=== PATIENT | female | born 1960 | race Caucasian/White ===

== ENCOUNTER 2018-08-27 13:11 | Outpatient (CLI) | payer MEDICAID ==
[~2018-08-27] VITALS: Ht 154.9 cm; Wt 73.0 kg
[2018-08-27 13:21] VITALS: BP 94/53
[2018-08-27 13:46] LABS: BASOPHILS # (AUTO) 0.1 10^3/uL (0.0-0.1); BASOPHILS % (AUTO) 1 % (0-10); EOSINOPHILS # (AUTO) 0.1 10^3/uL (0.0-0.3); EOSINOPHILS % (AUTO) 1 % (0-10); HEMATOCRIT 28 % (35-52); HEMOGLOBIN 8.5 G/DL (11.5-16.0); LYMPHOCYTES # (AUTO) 1.9 X 10^3 (1.0-4.0); LYMPHOCYTES % (AUTO) 40 % (12-44); MEAN CORPUSCULAR HEMOGLOBIN 24 PG (25-34); MEAN CORPUSCULAR HGB CONC 31 G/DL (32-36); MEAN CORPUSCULAR VOLUME 80 FL (80-99); MEAN PLATELET VOLUME 9.1 FL (7.4-10.4); MONOCYTES # (AUTO) 0.4 X 10^3 (0.0-1.0); MONOCYTES % (AUTO) 8 % (0-12); NEUTROPHILS # (AUTO) 2.3 X 10^3 (1.8-7.8); NEUTROPHILS % (AUTO) 49 % (42-75); PLATELET COUNT 413 10^3/uL (130-400); RED CELL DISTRIBUTION WIDTH 17.1 % (10.0-14.5); WHITE BLOOD COUNT 4.7 10^3/uL (4.3-11.0)
[2018-08-27] MEDS ORDERED: LISI10TA2 PO (13:51)
[2018-08-27] MEDS ORDERED: SIMV40TA4 PO (13:51)
[2018-08-27] MEDS ORDERED: AMIT150T PO (13:51)
[2018-08-27] MEDS ORDERED: VENL150T PO (13:51)
[2018-08-27] MEDS ORDERED: ASPI-808 PO (13:51)
[2018-08-27] MEDS ORDERED: FERR325T18 PO (13:51)
[2018-08-27] MEDS ORDERED: FAMO40TA72 PO (13:51)
[2018-08-27] MEDS ORDERED: OMEP40CA36 PO (13:51)
[2018-08-27 14:03] LABS: BUN/CREATININE RATIO 12; CALCIUM 9.2 MG/DL (8.5-10.1); CARBON DIOXIDE 23 MMOL/L (21-32); CHLORIDE 103 MMOL/L (98-107); CREATININE SERUM 0.92 MG/DL (0.60-1.30); GFR ESTIMATED > 60; GLUCOSE 109 MG/DL (70-105); POTASSIUM 4.2 MMOL/L (3.6-5.0); SODIUM 134 MMOL/L (135-145)
== END 2018-08-27 13:40 | disposition home or self-care (01) ==
LOC: PREOP 13:11
PROVIDERS: ATTEND Otolaryngology Otolaryngology/Facial Plastic Surgery
DX: Z01.812 Encounter for preprocedural laboratory examination (principal); Z11.2 Encounter for screening for other bacterial diseases; J38.7 Other diseases of larynx
CPT/HCPCS: 36415; 80048; 85025; 87081

== ENCOUNTER 2018-09-02 07:06 | Day surgery (SDC) | payer MEDICAID ==
[~2018-09-02] VITALS: Ht 154.9 cm; Wt 73.0 kg
[2018-09-02] VITALS (8 sets, daily range): BP systolic 87–143; BP diastolic 50–69
[~2018-09-02 07:06] MED LIST: AMIT150T PO; ASPI-808 PO; FAMO40TA72 PO; FERR325T18 PO; LISI10TA2 PO; OMEP40CA36 PO; SIMV40TA4 PO; VENL150T PO
[2018-09-02] MEDS: LACTATED RINGERS 1,000 ML IV PRN ×2 (07:45→09:01)
[2018-09-02] MEDS ORDERED: FAMOTIDINE 20MG/2ML IV (PEPCID) ONE (07:57)
[2018-09-02] MEDS ORDERED: MIDAZOLAM 2 MG/2 ML (VERSED) VIAL ONE ×2 (07:57→08:36)
[2018-09-02] MEDS ORDERED: MIDAZOLAM 2 MG/2 ML (VERSED) VIAL IV ONE (08:15)
--- NOTE | 2018-09-02 08:24 | Progress Note-Pre Operative ---
Pre-Operative Progress Note H&P Reviewed The H&P was reviewed, patient examined and no changes noted. Date Seen by Provider: September 02, 2018 Time Seen by Provider: 07:30 Date H&P Reviewed: September 02, 2018 Time H&P Reviewed: 07:30 Pre-Operative Diagnosis: Unlatera Left Throat Paitn with Left Phyarngeal/base of tongue mass YVES MO MD September 02, 2018 08:24
[2018-09-02] MEDS ORDERED: DEXAMETHASONE 10 MG/ML (DECADRON) 1 ML VIAL ONE (08:35)
[2018-09-02] MEDS ORDERED: LIDOCAINE PF 2% 5 ML (XYLOCAINE) VIAL ONE (08:35)
[2018-09-02] MEDS ORDERED: proPOfol 200 MG/20 ML (DIPRIVAN) VIAL IV ONE (08:35)
[2018-09-02] MEDS ORDERED: ONDANSETRON 4 MG/2 ML (SDV) Z0FRAN ONE (08:35)
[2018-09-02] MEDS ORDERED: SEVOFLURANE (ULTANE) 15 ML INHAL SOLN ONE ×3 (08:35→08:48)
[2018-09-02] MEDS ORDERED: fentaNYL INJECTION 100 MCG/2 ML AMP ONE (08:36)
[2018-09-02] MEDS ORDERED: ROCURONIUM 10 MG/ML 5 ML SYRINGE IV ONE (08:48)
[2018-09-02] MEDS ORDERED: SUCCINYLCHOLINE INJ 100 MG/5 ML SYR ONE (08:48)
[2018-09-02] MEDS ORDERED: LIDOCAINE/EPI 1%-1:100,000 (XYLOCAINE) 20ML ONE (08:52)
[2018-09-02] MEDS ORDERED: NEOSTIGMINE 1 MG/ML 5 ML SYRINGE ONE (08:55)
[2018-09-02] MEDS ORDERED: GLYCOPYRROLATE 0.2 MG/ML (ROBINUL) 2 ML VIAL ONE (08:55)
--- OUTSIDE RECORDS SUMMARY | 2018-09-02 08:58 | XMS REPORT ---
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 [employer] Anesth ZI Shirley DO Attending RENALDO LAKHANI DO Erdoc1 DEBORAH Caballero COTTON AGENT [facility] Functional Status No Data Found Immunization No Data Found Mental Status No Data Found Results PHOSPHORUS - Collect Date/Time: 02/27/2017 05:05 [facility] Post ID: [id number] [address] [facility] [address], [place], [place], [id number] [facility] ID: [id number] [address] [facility] [address], [place], [place], [id number] LOINC: 2777-1 Test Value Unit Reference Range Code Code System PHOSPHORUS 4.1 MG/DL L =2.5 H=4.5 2777-1 LOINC MAGNESIUM - Collect Date/Time: 02/27/2017 05:05 [facility] ID: [id number] [address] [facility] [address] [place], [place], [id number] [facility] ID: [id number] [address] [facility] [address] [place], [place], [address] LOINC: 15940-8 Test Value Unit Reference Range Code Code System MAGNESIUM 1.5 MG/DL L= 1.7 H=2.8 31536-8 LOINC COMPREHENSIVE METABOLIC PANEL - Collect Date/Time: 02/27/2017 05:05 [facility] ID: [id number] [address] [facility] [address] [place], [place], [id number] [facility] ID: [id number] [address] [facility] [address] [place], [place], [address] LOINC: 04504-8 Test Value Unit Reference Range Code Code System GLUCOSE 110 MG/DL L= 70 H=100 2345-7 LOINC SODIUM 138 MEQ/L L= 135 H=148 2951-2 LOINC POTASSIUM 4.3 MEQ/L L= 3.5 H=5.3 2823-3 LOINC CHLORIDE 113 MEQ/L L= 96 H=110 2075-0 LOINC CO2 19 MEQ/L L=22 H=29 2028-9 LOINC BUN 15 MG/DL L=8 H=22 3094-0 LOINC CREATININE 0.8 MG/DL L =0.6 H=1.6 2160-0 LOINC SGOT/AST 21 IU/L L=10 H=40 1920-8 LOINC SGPT/ALT 17 IU/L L=8 H=54 1742-6 LOINC ALK PHOS 31 IU/L L=35 H=115 6768-6 LOINC TOTAL PROTEIN 5.2 G/DL L=5.5 H=8.5 2885-2 LOINC ALBUMIN 3.0 G/DL L= 3.1 H=5.4 1751-7 LOINC TOTAL BILI 0.3 MG/DL L =0.0 H=1.5 1975-2 LOINC CALCIUM 8.2 MG/DL L= 8.2 H=10.6 65792-1 LOINC AGE 56 yrs GFR NonAA 74 GFR AA 90 eGFR >60 eGFR AA* >60 CBC W/ MANUAL DIFF - Collect Date/Time: 02/27/2017 05:05 [facility] [employer] [facility] ID: [id number] [address], [place], [place], [id number] [facility] ID: [id number] [address], [place], [place], [id number] LOINC: 68403-2 Test Value Unit Reference Range Code Code System WBC 8.2 TH/CMM L=4.5 H=10.8 93971-2 LOINC RBC 3.49 ML/CMM L= 4.20 H=5.40 789-8 LOINC HGB 10.4 G/DL L=12.0 H=16.0 718-7 LOINC HCT 32.3 % L=37.0 H=47.0 4544-3 LOINC MCV 93 FL L=81 H =99 MCH 29.8 PG L=27.0 H=33.0 MCHC 32.2 G/DL L=31.0 H=36.0 RDW SD 47 FL L=36 H=50 RDW CV 13.9 % L=0.0 H=14.8 MPV 9.4 FL L=9.3 H=12.5 PLT 285 TH/CMM L=130 H=440 777-3 LOINC NRBC# 0.00 TH/CMM L= 0.00 H=0.00 NRBC% 0.0 /100WBC L= 0.0 H=2.0 %NEUT 73.0 % %LYMP 20.1 % %MONO 6.6 % %EOS 0.0 % %BASO 0.2 % #NEUT 5.96 TH/CMM L= 2.10 H=8.20 #LYMP 1.64 TH/CMM L= 0.90 H=5.20 #MONO 0.54 TH/CMM L= 0.16 H=1.00 #EOS 0.00 TH/CMM L= 0.00 H=0.80 #BASO 0.02 TH/CMM L= 0.00 H=0.20 SEGS 74 % BANDS 1 % LYMPHS 21 % MONOS 4 % EOS BASO METAS MYELO PROS BLASTS ATYP LYMPHS RBC MORPH COMPREHENSIVE METABOLIC PANEL - Collect Date/Time: 02/26/2017 05:40 [facility] ID: [id number] [address], [place], [place], [id number] [facility] ID: [id number] [address] [facility] [address], [place], [place], [id number] LOINC: 15503-4 Test Value Unit Reference Range Code Code System GLUCOSE 98 MG/DL L=70 H=100 2345-7 LOINC SODIUM 139 MEQ/L L= 135 H=148 2951-2 LOINC POTASSIUM 4.1 MEQ/L L= 3.5 H=5.3 2823-3 LOINC CHLORIDE 109 MEQ/L L= 96 H=110 2075-0 LOINC CO2 24 MEQ/L L=22 H=29 2028-9 LOINC BUN 12 MG/DL L=8 H=22 3094-0 LOINC CREATININE 0.8 MG/DL L =0.6 H=1.6 2160-0 LOINC SGOT/AST 19 IU/L L=10 H=40 1920-8 LOINC SGPT/ALT 19 IU/L L=8 H=54 1742-6 LOINC ALK PHOS 41 IU/L L=35 H=115 6768-6 LOINC TOTAL PROTEIN 6.3 G/DL L=5.5 H=8.5 2885-2 LOINC ALBUMIN 3.7 G/DL L= 3.1 H=5.4 1751-7 LOINC TOTAL BILI < 0.3 MG/DL L=0.0 H=1.5 1975-2 LOINC CALCIUM 8.9 MG/DL L= 8.2 H=10.6 98257-6 LOINC AGE 56 yrs GFR NonAA 74 GFR AA 90 eGFR >60 eGFR AA* >60 CBC W/ AUTO DIFF (RFLX MAN DIFF IF IND) - Collect Date/Time: 02/26/2017 05:40 [facility] ID: [id number] [address], [place], [id number] [facility] [employer] [employer] [facility] ID: [id number] [address], [place], [address] LOINC: 24482-8 Test Value Unit Reference Range Code Code System WBC 6.6 TH/CMM L=4.5 H=10.8 30942-1 LOINC RBC 3.91 ML/CMM L= 4.20 H=5.40 789-8 LOINC HGB 11.7 G/DL L=12.0 H=16.0 718-7 LOINC HCT 36.0 % L=37.0 H=47.0 4544-3 LOINC MCV 92 FL L=81 H =99 MCH 29.9 PG L=27.0 H=33.0 MCHC 32.5 G/DL L=31.0 H=36.0 RDW SD 47 FL L=36 H=50 RDW CV 13.7 % L=0.0 H=14.8 MPV 9.7 FL L=9.3 H=12.5 PLT 327 TH/CMM L=130 H=440 777-3 LOINC NRBC# 0.00 TH/CMM L= 0.00 H=0.00 NRBC% 0.0 /100WBC L= 0.0 H=2.0 %NEUT 39.4 % %LYMP 50.5 % %MONO 6.1 % %EOS 2.4 % %BASO 1.4 % #NEUT 2.59 TH/CMM L= 2.10 H=8.20 #LYMP 3.32 TH/CMM L= 0.90 H=5.20 #MONO 0.40 TH/CMM L= 0.16 H=1.00 #EOS 0.16 TH/CMM L= 0.00 H=0.80 #BASO 0.09 TH/CMM L= 0.00 H=0.20 MANUAL DIFF NOT IND Social History Type Status Start Date End Date Code Code System Smoking History Current every day smoker 925365506 SNOMED- CT Smoking History Current every day smoker 04/20/1976 054622529 SNOMED-CT Vital Signs Vital Sign Value Unit Harney Value Harney Unit Date/Time Recent/Initial? Code Code System Body Mass Index 26.74 kg/m2 02/26/2017 01:30 Inital 49266-4 LOINC Systolic Blood Pressure 128 mm[Hg] 03/01/2017 07:16 Most Recent 8480-6 LOINC Diastolic Blood Pressure 70 mm[Hg] 03/01/2017 07:16 Most Recent 8462-4 LOINC Systolic Blood Pressure 119 mm[Hg] 02/26/2017 01:35 Inital 8480-6 LOINC Diastolic Blood Pressure 70 mm[Hg] 02/26/2017 01:35 Inital 8462-4 LOINC Body Surface Area 1.66 m2 02/26/2017 01:30 Inital 3140-1 LOINC Height 154.9400 cm 61.00 in 02/26/2017 01:30 Inital 8302-2 LOINC O2 Saturation 98 % 03/01/2017 07:16 Most Recent 47481-1 LOINC O2 Saturation 100 % 02/26/2017 01:35 Inital 98025-5 LOINC Pulse 74.0 /min 03/01/2017 07:16 Most Recent 8867-4 LOINC Pulse 72.0 /min 02/26/2017 01:35 Inital 8867-4 LOINC Respiration 20 /min 03/01/2017 07:16 Most Recent 9279-1 LOINC Respiration 20 /min 02/26/2017 01:35 Inital 9279-1 LOINC Temperature 36.3 Aysha 97.4 F 03/01/2017 07:16 Most Recent 8310-5 LOINC Temperature 36.6 Aysha 97.9 F 02/26/2017 01:35 Inital 8310-5 LOINC Weight 64.1833 kg 141.50 lbs 02/26/2017 01:30 Inital 10985-3 LOINC Assessment You had the following problems: PARTIAL OBSTRUCTION OF SMALL BOWEL ACUTE DUODENAL ULCER ABDOMINAL PAIN HTN Hospital Discharge Instructions Should you have any questions prior to discharge, please contact a member of your healthcare team. If you have left the hospital and have any questions, please contact your primary care physician. PRIMARY CARE PROVIDER: DR. PINON SCRIPTS WRITTEN BY DOCTOR GIVEN TO PATIENT? NORCO INSTRUCTIONS GIVEN BY (TYPE IN NAME AND DATE) GEOFFREY LOGAN RN FOLLOW UP APPOINTMENT: SEE DR. PINON IN 2 WEEKS. CALL ON THURSDAY TO SET UP APPOINTMENT TIME. [phone] ACTIVITY INSTRUCTIONS(list limitations): MAY SHOWER AND LEAVE INCISION OPEN TO AIR IF NO DRAINAGE. NO LIFTING GREATER THAN 15 POUNDS. SPECIAL INSTRUCTIONS: MAY LEAVE UNCOVERED UNLESS THERE IS DRAINAGE, AND IF SO, COVER WITH MAXIPAD. HOME MEDICATION INSTRUCTIONS: Take only the medications listed above.. HOME DIET: Regular. HOME MEDS RETURNED TO PATIENT: N/A. Reason For Referral No Data Found Hospital Course You were admitted to [facility] on 02/26/2017 00:13 with a principal diagnosis of Intestinal adhesions [bands], with partial obstruction You were discharged from [facility] on 03/01/2017 11:43 Medications Medication Start Date End Date Route Frequency Dose Code Code System Enalapril 10MG Oral Tablet 01/08/2014 Unknown ORAL DAILY 10 MILLIGRAMS 394972 RxNorm Atorvastatin Calcium 20MG Oral Tablet 03/01/2017 Unknown ORAL DAILY 20 MILLIGRAMS 724329 RxNorm Amitriptyline HCl 150 MG Oral Tablet 03/01/2017 Unknown ORAL AT BEDTIME 150 MILLIGRAMS 196256 RxNorm Effexor XR 150MG Oral Capsule, Extended Release 12/25/2017 Unknown ORAL DAILY 150 MILLIGRAMS 616219 RxNorm Sucralfate 1GM/10ML Oral Suspension 12/25/2017 Unknown BY MOUTH BEFORE MEALS AND BED 504913 RxNorm Procedures Procedure Name Date Status Code Code System Release Abdomen Subcutaneous Tissue and Fascia, Open Approach 02/26/2017 completed [id number] ICD10 PCS Supplement Abdominal Wall with Synthetic Substitute, Open Approach 02/26/2017 completed [id number] ICD10 PCS Release Small Intestine, Open Approach 02/26/2017 completed [id number] ICD10 PCS Implants No Data Found Problems Problem Start Date Resolved Date Status Code Code System PARTIAL OBSTRUCTION OF SMALL BOWEL active 344418851 SNOMED- CT ACUTE DUODENAL ULCER active 783807695 SNOMED-CT ABDOMINAL PAIN active 52238353 SNOMED-CT HTN active 23365105 SNOMED-CT ANXIETY 12/24/2017 resolved 41489230 SNOMED-CT DEGENERATIVE JOINT DISEASE 12/24/2017 resolved 688367396 SNOMED-CT SMALL BOWEL OBSTRUCTION 11/14/2015 resolved 182077460 SNOMED- CT HYPERLIPIDEMIA 12/24/2017 resolved 61287133 SNOMED-CT OVERDOSE 12/25/2015 resolved 19321011 SNOMED-CT ISCHEMIC BOWEL DISEASE 12/24/2017 resolved 99305600 SNOMED- CT DEPRESSION 12/24/2017 resolved 79661189 SNOMED-CT Allergies Allergy Substance Reaction Severity Start Date Concern Status Code Code System Active RxNorm CEPHALEXIN Active 2231 RxNorm CODEINE Active 2670 RxNorm Plan of Treatment No Data Found Encounters No Data Found Goals No Data Found Discharge Medications No Data Found Discharge Diagnosis Discharge Diagnosis Diagnosis Code Start Date Intestinal adhesions [bands], with partial obstruction K5651 02/26/2017 Health Concerns Section No Data Found
--- OUTSIDE RECORDS SUMMARY | 2018-09-02 08:59 | XMS REPORT ---
Author Author [employer] [facility] Medical Staff Organization [place] [employer] [facility] Address [address] [place], [place] [address] Phone [phone] Care Team Providers Care Invoice Coder Name Role Phone FLORIAN BO LAURENT PP [phone] Summary purpose TRANSITION OF CARE AUTO GENERATION Chief Complaint and Reason for Visit No authorized Reason for Visit (Admitting Diagnosis) is available for this visit. Problem list No authorized problems tracked for continuity of care are available for this visit. Encounters No authorized problems tracked for encounter diagnoses are available for this visit. Medications No medications recorded for this patient visit Allergies, adverse reactions, alerts No allergy information is available for this patient. Immunizations No immunizations recorded for this patient visit Relevant diagnostic tests and/or laboratory data RESULTS Hematology 13-80-823302:45:00 Result Normal Range Units WBC 7.9 4.8-10.8 103/uL RBC L 4.1 4.2-5.4 106/uL HGB 12.2 12.0-16.0 g/dl HCT 37.3 36.9-47.0 % MCV 91.2 81-99 FL MCH 29.8 27-31 pg MCHC L 32.7 33-37 g/dl RDW 14.3 11.5-15.5 % PLT 384 130-400 103/uL MPV 9.8 7.3-10.4 FL Radiology Results [id number]:00:00 Chest X-Ray - 2 View PACs Image DATE OF EXAM: 2015 RAD 0300-CHEST XRAY 2 VIEW : RADIOLOGY REPORT DATE OF SERVICE: 09/20/15 HISTORY: Cough, shortness of breath, wheezing, history of smoking. CHEST 2 VIEWS 1444 HOURS The lungs are clear and are normally expanded. Heart size and pulmonary vessels are normal. There are no hilar abnormalities. IMPRESSION: Negative chest. MD DAVID Rice/ct09/20/2015 15:30:00 / 09/20/2015 15:41:38 cc:Bo Florian APRN This document has been electronically Signed by: On: DATE OF EXAM: 2015 RAD 0300-CHEST XRAY 2 VIEW : RADIOLOGY REPORT DATE OF SERVICE: 09/20/15 HISTORY: Cough, shortness of breath, wheezing, history of smoking. CHEST 2 VIEWS 1444 HOURS The lungs are clear and are normally expanded. Heart size and pulmonary vessels are normal. There are no hilar abnormalities. IMPRESSION: Negative chest. Stephen Palomino MD Yohannes/ct09/20/2015 15:30:00 / 09/20/2015 15:41:38 cc:Bo Florian APRN This document has been electronically Signed by: STEPHEN PALOMINO MD On: 20159:00P Result Amended on 2015-09-20 at 21:00:07. Previous status was DE. [id number]:45:00 Result Normal Range Units MPV 9.8 7.3-10.4 FL History of procedures Procedure Code Code Type Description Date Performed Performing Physician 67927 CPT-4 CHEST X-RAY 09-20-2015 BO FLORIAN 25980 CPT-4 COMPLETE CBC, AUTOMATED 09-20-2015 BO FLORIAN 09497 CPT-4 MYCOPLASMA ANTIBODY 09-20-2015 BO FLORIAN Functional status No functional or cognitive status observations are available for this visit. Vital signs No authorized vital signs are available for this visit. Social history No Social History or smoking status observations were recorded for this visit. ( Unknown if ever smoked.) Treatment Plan No treatment plan text is available for this visit. Hospital discharge instructions No discharge instruction text is available for this visit.
--- OUTSIDE RECORDS SUMMARY | 2018-09-02 08:59 | XMS REPORT ---
Author Author [facility] Medical Staff Organization [facility] Address [address] [place] [address] Phone [phone] Care Team Providers Care Die Designer Name Role Phone BO OLMOS APRN PP [phone] Summary purpose TRANSITION OF CARE AUTO GENERATION Chief Complaint and Reason for Visit Admit Diagnosis 1 HYPERTENSION NOS Problem list No authorized problems tracked for continuity of care are available for this visit. Encounters No authorized problems tracked for encounter diagnoses are available for this visit. Medications No medications recorded for this patient visit Allergies, adverse reactions, alerts No allergy information is available for this patient. Immunizations No immunizations recorded for this patient visit Relevant diagnostic tests and/or laboratory data RESULTS Routine Urinalysis [id number]:50:00 Result Normal Range Units Color YELLOW Clarity Clear Specific [place] 1.010 1.003-1.035 pH 6.0 4.5-8.0 Glucose NEGATIVE Bilirubin NEGATIVE Ketones NEGATIVE Protein NEGATIVE Urobilinogen 0.2 0-0.2 E.U./dL Nitrites NEGATIVE Blood NEGATIVE Leukocytes NEGATIVE WBCs No WBC's Seen RBCs 0-5 Squamous Epithelial Few Chemistry [id number]:50:00 Result Normal Range Units Sodium 134 134-145 mEq/l Potassium 4.9 3.5-5.1 mEq/l Chloride 101 98-107 mEq/l CO2 22.4 22-28 mEq/l Glucose H 132 70-105 mg/dl BUN H 28 7-18 mg/dl Creatinine H 1.07 0.6-1.0 mg/dl Triglycerides H 277 35-160 mg/dl Cholesterol H 269 120-200 mg/dl HDL Cholesterol 42 39-96 mg/dl VLDL Cholesterol H 55 5-40 mg/dl LDL Cholesterol H 169 30-100 mg/dl Calcium L 8.3 8.4-10.2 mg/dl TP - Total Protein 6.6 6.0-8.3 g/dl Albumin 3.6 3.5-5 g/dl Bilirubin - Total 0.2 0.1-1.0 mg/dl AST 17 10-42 IU/L ALT 20 12-65 IU/L ALP 32 25-72 IU/L Osmolality L 275.6 280-300 mOsm/L Albumin/Globulin Ratio 1.2 0-8 Anion GAP 10.6 8-16 BUN/Creatinine Ratio H 26.2 10-20 Estimated GFR L 53 >=60 mL/min/1.7 Hematology [id number]:50:00 Result Normal Range Units WBC 6.4 4.8-10.8 103/uL RBC L 4.0 4.2-5.4 106/uL HGB 12.8 12.0-16.0 g/dl HCT 38.5 36.9-47.0 % MCV 95.8 81-99 FL MCH H 31.8 27-31 pg MCHC 33.2 33-37 g/dl RDW 12.4 11.5-15.5 % PLT 347 130-400 103/uL MPV 9.4 7.3-10.4 FL Body Fluid [id number]:50:00 Result Normal Range Units pH 6.0 4.5-8.0 Thyroid Testing [id number]:50:00 Result Normal Range Units TSH 1.14 0.36-3.74 uIU/mL Free T4 0.92 0.78-1.34 ng/dl Radiology Results [id number]:50:00 Result Normal Range Units MPV 9.4 7.3-10.4 FL History of procedures Procedure Code Code Type Description Date Performed Performing Physician 49715 CPT-4 COMPREHEN METABOLIC PANEL 12-29-2014 BO OLMOS 43699 CPT-4 LIPID PANEL 12-29-2014 BO OLMOS 16592 CPT-4 URINALYSIS, AUTO W/SCOPE 12-29-2014 BO OLMOS 79245 CPT-4 ASSAY OF FREE THYROXINE 12-29-2014 BO OLMOS 90427 CPT-4 ASSAY THYROID STIM HORMONE 12-29-2014 BO OLMOS 60447 CPT-4 COMPLETE CBC, AUTOMATED 12-29-2014 BO OLMOS Functional status No functional or cognitive status [...]
--- OUTSIDE RECORDS SUMMARY | 2018-09-02 08:59 | XMS REPORT ---
Author Author [facility] Medical Staff Organization [facility] Address [address] [place] [address] Phone [phone] Care Team Providers Care Forge Hand Name Role Phone BO OLMOS APRN PP [phone] Summary purpose TRANSITION OF CARE AUTO GENERATION [...] visit Relevant diagnostic tests and/or laboratory data No authorized results are available for this patient visit History of procedures No procedures recorded for this patient visit. Functional status No functional or cognitive status [...]
--- OUTSIDE RECORDS SUMMARY | 2018-09-02 08:59 | XMS REPORT | CCD ---
Author Author ZAINAB WELDON Organization Unknown Address [address] [facility] [address] [place], [place] [id number] Care Team Providers Care Environmental Marketing Representative Name Role Phone [facility] Attphys ERNST NUNEZ MD Prisurg Vital Signs Vital Sign Value Unit Date/Time Recent/Initial? Body Temperature 96.8 degrees 11/13/2015 12:20 Initial VS BP Systolic 130 mmHg 11/13/2015 12:24 Initial VS BP Diastolic 68 mmHg 11/13/2015 12:24 Initial VS Respiratory Rate 17 bpm 11/13/2015 12:24 Initial VS Heart Rate 80 bpm 11/13/2015 12:24 Initial VS O2 % BldC Oximetry 100 % 11/13/2015 12:24 Initial VS Weight Measured 158 lbs 11/13/2015 13:18 Initial VS Height 57 in 11/13/2015 13:18 Initial VS BMI (Body Mass Index) 34.19 kg/m^2 11/13/2015 13:18 Initial VS BSA (Body Surface Area) 1.7 m^2 11/13/2015 13:18 Initial VS BP Systolic 111 mmHg 11/13/2015 17:08 Most Recent VS BP Diastolic 59 mmHg 11/13/2015 17:08 Most Recent VS Respiratory Rate 19 bpm 11/13/2015 17:34 Most Recent VS Heart Rate 60 bpm 11/13/2015 17:44 Most Recent VS O2 % BldC Oximetry 83 % 11/13/2015 17:44 Most Recent VS Allergies Allergy Code Allergy Type Reaction Status CEPHALEXIN 2231 Drug allergy Active Unknown Code - 0 0 Propensity to adverse reactions Active CODEINE 2670 Drug allergy Active Procedures Procedure Code Procedure Type Date CX CHEST [address] 11/13/2015 [place] 649908229 SNOM[place] 11/13/2015 [place] 968113653 SNOMED CT 11/13/2015 .BENZO QUANT UR 367058620 SNOMED CT 11/13/2015 UA ROUTINE C&S IF IND 813436752 SNOMED CT 11/13/2015 RAPID DRUG SCREEN 440686068 [facility] CT 11/13/2015 ACETAMINOPHEN 72178287 [facility] CT 11/13/2015 [facility]59[facility] 11/13/[address] 11/13/2015 LIPASE 90793844 [facility] CT 11/13/2015 COMPREHENSIVE METABOLIC PANEL 862516063 [facility] CT 2015 CBC W/ AUTO DIFF (RFLX MAN DIFF IF IND) 6061087 SNOMED CT 11/13/2015 ^UA AUTO DIPSTICK ONLY 898423362 OMED CT 11/13/2015 ^CBC W/AUTO DIFF 5779980 [facility] CT 11/13/2015 BAN AERO ECLIPSE TREATMENT 30288911 SNOMED CT 11/13/2015 BAN AERO ECLIPSE TREATMENT 01030648 SNOMED CT 11/13/2015 History of Immunizations Unknown or Not Available. Problems Problem Code Start Date Resolved Date Status Overdose 70965829 Active Small bowel obstruction 732546563 01/02/2014 11/14/2015 Resolved Results COMPREHENSIVE METABOLIC PANEL - Collect Date/Time: 11/13/2015 10:05 Test Name Code Test Result Test Units Test Ref Range GLUCOSE 2345-7 90 MG/DL L=70 H=100 SODIUM 2951-2 137 MEQ/L L=135 H=148 POTASSIUM 2823-3 4.5 MEQ/L L=3.5 H=5.3 CHLORIDE 2075-0 107 MEQ/L L=96 H=110 CO2 2028-9 21 MEQ/L L=22 H=29 BUN 3094-0 15 MG/DL L=8 H=22 CREATININE 2160-0 0.8 MG/DL L=0.6 H=1.6 SGOT/AST 1920-8 15 IU/L L=10 H=40 SGPT/ALT 1742-6 12 IU/L L=8 H=54 ALK PHOS 6768-6 28 IU/L L=35 H=115 TOTAL PROTEIN 2885-2 5.9 G/DL L=5.5 H=8.5 ALBUMIN 1751-7 3.5 G/DL L=3.1 H=5.4 TOTAL BILI 1975-2 0.2 MG/DL L=0.0 H=1.5 CALCIUM 39812-9 8.6 MG/DL L=8.2 H=10.6 AGE 55 yrs GFR NonAA 74 GFR AA 90 eGFR >60 N/A eGFR AA* >60 N/A LIPASE - Collect Date/Time: 11/13/2015 10:05 Test Name Code Test Result Test Units Test Ref Range LIPASE 3040-3 6 U/L L=8 H=78 ACETAMINOPHEN - Collect Date/Time: 11/13/2015 10:05 Test Name Code Test Result Test Units Test Ref Range ACETAMINOPHEN 3298-7 <0.60 UG/ML ALCOHOL - Collect Date/Time: 11/13/2015 10:05 Test Name Code Test Result Test Units Test Ref Range ETHANOL 5640-8 <10 MG/DL RAPID DRUG SCREEN - Collect Date/Time: 11/13/2015 10:25 Test Name Code Test Result Test Units Test Ref Range Cannabinoids (THC) NEGATIVE N/A NEG: < 50 ng/ ml Phencyclidine (PCP) NON-NEGATIVE N/A NEG: < 25 ng/ml Cocaine NEGATIVE N/A NEG: < 300 ng/ml Methamphetamine NEGATIVE N/A NEG: < 1000 ng/ml Opiates NEGATIVE N/A NEG: < 300 ng/ml Amphetamine NEGATIVE N/A NEG: < 1000 ng/ml Benzodiazepines NON-NEGATIVE N/A NEG: < 300 ng/ ml Tricyclic Antidepres NON-NEGATIVE N/A NEG: < 300 ng/ml Methadone NEGATIVE N/A NEG: < 300 ng/ml Barbiturates NEGATIVE N/A NEG: < 200 ng/ml Oxycodone NEGATIVE N/A NEG: < 100 ng/ml Propoxyphene (PPX) NEGATIVE N/A NEG: < 300 ng/ ml SALICYLATE - Collect Date/Time: 11/13/2015 10:05 Test Name Code Test Result Test Units Test Ref Range SALICYLATE 4023-8 <5.0 MG/DL L=0.0 H=45.0 CBC W/ AUTO DIFF (RFLX MAN DIFF IF IND) - Collect Date/Time: 11/13/2015 10:05 Test Name Code Test Result Test Units Test Ref Range WBC 19023-2 6.5 TH/CMM L=4.5 H=10.8 RBC 789-8 4.03 ML/CMM L=4.20 H=5.40 HGB 718-7 11.8 G/DL L=12.0 H=16.0 HCT 4544-3 37.1 % L=37.0 H=47.0 MCV 92 FL L=81 H=99 MCH 29.3 PG L=27.0 H=33.0 MCHC 31.8 G/DL L=31.0 H=36.0 RDW SD 48 FL L=36 H=50 RDW CV 14.1 % L=0.0 H=14.8 MPV 9.7 FL L=9.3 H=12.5 PLT 777-3 307 TH/CMM L=130 H=440 NRBC# 0.00 TH/CMM L=0.00 H=0.00 NRBC% 0.0 /100WBC L=0.0 H=2.0 %NEUT 56.5 % %LYMP 34.2 % %MONO 6.8 % %EOS 1.1 % %BASO 1.1 % #NEUT 3.65 TH/CMM L=2.10 H=8.20 #LYMP 2.21 TH/CMM L=0.90 H=5.20 #MONO 0.44 TH/CMM L=0.16 H=1.00 #EOS 0.07 TH/CMM L=0.00 H=0.80 #BASO 0.07 TH/CMM L=0.00 H=0.20 MANUAL DIFF NOT IND N/A PT/PTT - Collect Date/Time: 11/13/2015 10:05 Test Name Code Test Result Test Units Test Ref Range PROTIME 89789-0 9.9 SEC L=9.9 H=11.9 INR 0.9 PTT 3173-2 21.3 SEC L=22.2 H=37.2 UA ROUTINE C&S IF IND - Collect Date/Time: 11/13/2015 10:25 Test Name Code Test Result Test Units Test Ref Range COLOR YELLOW N/A NL: YELLOW APPEARANCE CLEAR N/A NL: CLEAR SPEC GRAV 1.020 N/A NL: 1.002 - 1.022 pH 6.0 N/A NL: 5 - 9 PROTEIN NEGATIVE N/A NL: NEGATIVE mg/dl GLUCOSE NEGATIVE N/A NL: NEGATIVE mg/dl KETONE NEGATIVE N/A NL: NEGATIVE mg/dl BILIRUBIN NEGATIVE N/A NL: NEGATIVE BLOOD NEGATIVE N/A NL: NEGATIVE NITRITE NEGATIVE N/A NL: NEGATIVE LEUK SCREEN NEGATIVE N/A NL: NEGATIVE MICRO INDICATED? NOT INDICATED N/A MAGNESIUM - Collect Date/Time: 11/13/2015 10:05 Test Name Code Test Result Test Units Test Ref Range MAGNESIUM 62827-3 2.2 MG/DL L=1.7 H=2.8 Active Medications Medication Code Dose Units Frequency Route Modification Start Date/Time BUDESONIDE [PULMICORT] RESP 0.5MG/2ML 002475 1 DOSE Q 12 HRS (RT ONLY) INHALE 11/13/2015 11:46 DUONEB [IPRATROPIUM/ALBUTEROL] 0.5/3 MG 6918393 1 EA QID (RT ONLY) INHALE 11/13/2015 11:46 PANTOPRAZOLE [PROTONIX] INJ VIAL: 40 MG 306256 40 MG DAILY SIVP 11/13/2015 11:36 NS 1000 ML IV [PREDEFINED] (7983) 367948 CONT IV IV 11/13/2015 11:08 ~~ NACL 0.9% (7983) 1000ML IV BAG 182806 6674 ML Medications Administered During Visit Medication Dose Units Frequency Route Date/ Time of Last Dose SOD BICARB 8.4%: 50 MEQ/50 ML VIAL 100 MEQ X1 IV 11/13/2015 13:00 PANTOPRAZOLE [PROTONIX] INJ VIAL: 40 MG 40 MG DAILY SIVP 11/13/2015 13:00 DUONEB [IPRATROPIUM/ALBUTEROL] 0.5/3 MG 1 UD QID (RT ONLY ) INHALE 11/13/2015 16:43 Encounters Encounter Diagnosis Diagnosis Code Start Date Poisoning by benzodiazepines, intentional self-harm, initial encounter [id number] 11/13/2015 Social History Smoking Status Code Start Date End Date Current every day smoker [id number] Patient Decision Aids Unknown or Not Available. Discharge Instructions You were admitted to [facility] on 11/13/2015 11:05 with a principal diagnosis of Poisoning by benzodiazepines, intentional self-harm, initial encounter You had the following tests done: ACETAMINOPHEN ALCOHOL CBC W/ AUTO DIFF (RFLX MAN DIFF IF IND) COMPREHENSIVE METABOLIC PANEL LIPASE MAGNESIUM PT/PTT RAPID DRUG SCREEN SALICYLATE UA ROUTINE C&S IF IND You were discharged from [facility] on 11/13/2015 18:46 Should you have any questions prior to discharge, please contact a member of your healthcare team. If you have left the hospital and have any questions, please contact your primary care physician. HOME DIET: Regular. CONDITION AT DISMISSAL Stable. HOME MEDICATION INSTRUCTIONS: Take medications as listed above. HOME MEDS RETURNED TO PATIENT: given to family member ACTIVITY INSTRUCTIONS(list limitations): Activity as Tolerated. RETURN TO WORK/SCHOOL: N/A. SPECIAL INSTRUCTIONS: follow up w/ mental health as recommended NEW PRESCRIPTS GIVEN TO PATIENT? No-none written by physician: . FOLLOW UP CARE - SEE YOUR PHYSICIAN: Make own appointment. FOLLOW UP APPOINTMENT: Sravanthi castro has not been made for you.. FOLLOW-UP OUTPATIENT SERVICES: Mental health services PERSONAL ITEMS RETURNED: Yes. OTHER INSTRUCTIONS: stay w/ family supervision aida, f/u w/ mental health as recommended. BRING DISCHARGE INST TO NEXT OFFICE VISIT Yes. DISCHARGE INSTRUCTIONS GIVEN TO: Patient, Parent. VOICES UNDERSTANDING OF INSTRUCTIONS: Yes. INSTRUCTIONS GIVEN BY:(TYPE IN NAME AND DATE) Shaun BOWEN, SMOKING CESSATION: Smoking and second hand smoke is harmful, to your health.. Smoking has been linked to cancer, cardiac disease, COPD, and asthma.. For more information you can call:, 8-814-NNY-STOP, or 9-957-TYTP-[place].. A pamphlet on smoking was given to you, at admission.. CHIEF COMPLAINT: PATIENT PRESENTS TO ER VIA EMS WITH OVERDOSE- CONFIRMED BY PATIENT. SUSPECTED INGESTION OF BENZODIAZEPINES, CELEBREX , AMITRIPTYLENE, CYCLOBENZAPRINE. Chief Complaint and Reason For Visit Chief Complaint Date of Onset OVERDOSE Function Status Unknown or Not Available. Plan of Care Unknown or Not Available. Referral/Transition of Care Unknown or Not Available.
--- OUTSIDE RECORDS SUMMARY | 2018-09-02 08:59 | XMS REPORT ---
Author Author [employer] [facility] Medical Staff Organization [place] [employer] [facility] Address [address] [place], [place] [address] Phone [phone] Care Team Providers Care Licensed Clinician Name Role Phone FLORIAN BO LAURENT PP [phone] Summary purpose TRANSITION OF CARE AUTO GENERATION [...] diagnostic tests and/or laboratory data RESULTS Hematology 60-23-923807:45:00 Result Normal Range Units WBC 7.9 4.8-10.8 103/uL RBC L 4.1 4.2-5.4 106/uL HGB 12.2 12.0-16.0 g/dl HCT 37.3 36.9-47.0 % MCV 91.2 81-99 FL MCH 29.8 27-31 pg MCHC L 32.7 33-37 g/dl RDW 14.3 11.5-15.5 % PLT 384 130-400 103/uL MPV 9.8 7.3-10.4 FL Radiology Results [id number]:00:00 Chest X-Ray - 2 View PACs Image DATE OF EXAM: 2015 RAD 0300-CHEST XRAY 2 VIEW : RADIOLOGY REPORT DATE OF SERVICE: 09/20/15 HISTORY: Cough, shortness of breath, wheezing, history of smoking. CHEST 2 VIEWS 1444 HOURS The lungs are clear and are normally expanded. Heart size and pulmonary vessels are normal. There are no hilar abnormalities. IMPRESSION: Negative chest. MD DAVID Rice/pr09/20/2015 15:30:00 / 09/20/2015 15:41:38 cc:Bo Florian APRN [...] abnormalities. IMPRESSION: Negative chest. Stephen Palomino MD Yohannes/pr09/20/2015 15:30:00 / 09/20/2015 15:41:38 cc:Bo Florian APRN This document has been electronically Signed by: STEPHEN PALOMINO MD On: 20159:00P Result Amended on 2015-09-20 at 21:00:07. Previous status was DC. [id number]:45:00 Result Normal Range Units MPV 9.8 7.3-10.4 FL History of procedures No procedures recorded for [...]
--- OUTSIDE RECORDS SUMMARY | 2018-09-02 08:59 | XMS REPORT ---
Author Author [employer] [facility] Medical Staff [facility] [employer] [facility] Address [address] [place] [id number] Phone [phone] Care Team Providers Care Stock Patcher Name Role Phone BO OLMOS APRN PP [phone] Summary purpose TRANSITION OF CARE AUTO GENERATION [...]
--- OUTSIDE RECORDS SUMMARY | 2018-09-02 08:59 | XMS REPORT ---
Author Author [employer] [facility] Medical Staff Organization [facility] Address [address] [place], [place] [address] Phone [phone] Care Team Providers Care Swing Type Lathe Operator Name Role Phone BO OLMOS APRN PP [phone] Summary purpose TRANSITION OF CARE AUTO GENERATION [...] tests and/or laboratory data RESULTS Routine Urinalysis [id number]:50:00 Result Normal Range Units Color YELLOW Clarity Clear Specific [place] 1.010 1.003-1.035 pH 6.0 4.5-8.0 Glucose NEGATIVE Bilirubin NEGATIVE Ketones NEGATIVE Protein NEGATIVE Urobilinogen 0.2 0-0.2 E.U./dL Nitrites NEGATIVE Blood NEGATIVE Leukocytes NEGATIVE WBCs No WBC's Seen RBCs 0-5 Squamous Epithelial Few Chemistry [id number]:50:00 Result Normal Range Units Sodium 134 134-145 [...] Estimated GFR L 53 >=60 mL/min/1.7 Hematology :50:00 Result Normal Range Units WBC 6.4 4.8-10.8 103/uL RBC L 4.0 4.2-5.4 106/uL HGB 12.8 12.0-16.0 g/dl HCT 38.5 36.9-47.0 % MCV 95.8 81-99 FL MCH H 31.8 27-31 pg MCHC 33.2 33-37 g/dl RDW 12.4 11.5-15.5 % PLT 347 130-400 103/uL MPV 9.4 7.3-10.4 FL Body Fluid :50:00 Result Normal Range Units pH 6.0 4.5-8.0 Thyroid Testing :50:00 Result Normal Range Units TSH 1.14 0.36-3.74 uIU/mL Free T4 0.92 0.78-1.34 ng/dl Radiology Results :50:00 Result Normal Range Units MPV 9.4 7.3-10.4 FL History of procedures No procedures [...]
--- OUTSIDE RECORDS SUMMARY | 2018-09-02 09:00 | XMS REPORT ---
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 May 26 2018 8:59AM Mouth pain May 26 2018 8:59AM Periodontal Disease May 26 2018 8:59AM Tooth caries May 26 2018 8:59AM Fatigue Jun 23 2018 3:18PM Tooth infection Jun 23 2018 3:18PM Hyperlipemia Jun 23 2018 3:18PM Cough Jun 23 2018 3:18PM Anemia Jun 28 2018 4:06PM Abdominal Pain Jun 29 2018 3:05PM Anemia Jun 29 2018 3:05PM Colon cancer screening Jun 29 2018 3:05PM PUD (peptic ulcer disease) Jun 29 2018 3:05PM Fatigue Jul 08 2018 1:40PM Tooth infection Jul 08 2018 1:40PM Hyperlipemia Jul 08 2018 1:40PM Payers Insurance Name Company Name Plan Name Plan Number Policy Number Policy Group Number Start Date [facility] Comm Plan of [id number] N/A [facility] Comm [id number] N/A [place] [employer] [place] Prog [id number] N/A History of Encounters Visit Date Visit Type Provider 06/29/2018 Office visit Song Wright DO 05/26/2018 Office visit YVES JACQUES 04/15/2018 Office visit YVES JACQUES 02/22/2018 Office visit YVES JACQUES 02/03/2018 Office visit YVES JACQUES 12/24/2017 Voided Song Wright DO 12/24/2017 Hospital Song Lancasteruman DO 12/23/2017 Office visit YVES JACQUES 11/25/2017 Office visit YVES CHRISTIE PA 09/21/2017 Office visit YVES JACQUES 07/09/2017 Office visit YVES JACQUES 06/09/2017 Office visit YVES JACQUES 05/25/2017 Office visit YVES JACQUES 04/29/2017 Office visit YVES JACQUES 04/02/2017 Office visit YVES JACQUES 03/23/2017 Office visit YVES CHRISTIE PA 03/17/2017 Surgery Song Lancasteruman DO 03/09/2017 Office visit Reggie Azar POLISHING MACHINE OPERATOR 02/26/2017 [facility] Song Bouman DO 02/04/2017 Office visit Reggie Azar POLISHING MACHINE OPERATOR 02/04/2017 [facility] Jun Stacy MD 02/03/2017 Procedures Song Wrigth DO 01/23/2017 Office visit Reggie Azar POLISHING MACHINE OPERATOR 01/14/2017 Office visit Reggie Doe POLISHING MACHINE OPERATOR 01/06/2017 Office visit Reggie Doe POLISHING MACHINE OPERATOR 12/23/2016 Office visit Reggie Doe POLISHING MACHINE OPERATOR 11/25/2016 Nurse visit Reggie Azar POLISHING MACHINE OPERATOR 09/30/2016 Office visit Reggie Doe POLISHING MACHINE OPERATOR 09/17/2016 Office visit Reggie Doe POLISHING MACHINE OPERATOR 09/02/2016 Office visit Reggie Doe POLISHING MACHINE OPERATOR 08/19/2016 Office visit Reggie Doe POLISHING MACHINE OPERATOR 08/05/2016 Office visit Reggieelizabeth Charltonle POLISHING MACHINE OPERATOR 11/13/2015 Hospital Jun Stacy MD 01/27/2014 Surgery Song Bouman DO 01/03/2014 Hospital Song Bouman DO 01/03/2014 Hospital Jun Stacy MD 01/02/2014 [facility] Song Bouman DO 08/27/2009 Office visit Gabe V. Munira DO 08/02/2009 Nurse visit Gabe V. Munira DO 05/28/2009 Office visit Gabe V. Munira DO 04/30/2009 Nurse visit Gabe V. Munira DO 01/10/2009 Office visit Gabe V. Munira DO
--- OUTSIDE RECORDS SUMMARY | 2018-09-02 09:02 | XMS REPORT ---
Author Song Jamil [facility] Address [address] [place], [place] [id number] Care Team Providers Care Salary Manager Name Role Phone Song Wright PCP [...] route every 4- 6 hours as needed [place] 10-325 mg oral tablet 05/21/2017 06/20/2017 take [...] 24hr 10/16/2009 08/05/2016 TAKE ONE CAPSULE DAILY [place] 10-325 mg oral tablet 08/05/2016 take 1 [...] 12:00 AM Depo-Medrol 120 Mg Im/[facility]# [id number] Reviewed 08/05/2016 12:00 AM DESTRUCT PREMALG LESION [...] 12:00 AM Decadron 8mg Injection, [facility] Medicare Reviewed 06/09/2017 12:00 AM Decadron 8mg Injection, [facility] Medicare Reviewed 06/09/2017 12:00 AM Toradol 60 Mg Injection, [facility] Medicare Reviewed 06/09/2017 12:00 AM THERAPEUTIC PROPHYLACTIC/DX INJECTION SUBQ/IM Reviewed 08/02/2009 12:00 AM THER/PROPH/DIAG INJ SC/IM Reviewed 08/02/2009 12:00 AM Depo-Medrol [address] [facility] [id number]~Munira Reviewed 09/21/2017 12:00 AM Decadron 8mg Injection, [facility] Medicaid Reviewed 09/21/2017 12:00 AM Depo-Medrol 80 Mg Injection, [facility] Medicaid Reviewed 09/21/2017 12:00 AM THERAPEUTIC PROPHYLACTIC/DX INJECTION SUBQ/IM Reviewed 11/25/2017 12:00 AM THERAPEUTIC PROPHYLACTIC/DX INJECTION SUBQ/IM Reviewed 11/25/2017 12:00 AM Decadron 8mg Injection, [facility] Medicaid Reviewed 11/25/2017 12:00 AM Depo-Medrol 80 Mg Injection, [facility] Medicaid Reviewed 12/23/2017 12:00 AM THERAPEUTIC PROPHYLACTIC/DX INJECTION SUBQ/IM Reviewed 12/23/2017 12:00 AM Decadron 8mg Injection, [facility] Medicaid Reviewed 12/23/2017 12:00 AM Phenergan 50mg Injection, [facility] Medicaid Reviewed 02/22/2018 12:00 AM THERAPEUTIC PROPHYLACTIC/DX INJECTION SUBQ/IM Reviewed 02/22/2018 12:00 AM Toradol 60 Mg Injection, [facility] Medicaid Reviewed 04/15/2018 12:00 AM THERAPEUTIC PROPHYLACTIC/DX INJECTION SUBQ/IM Reviewed 04/15/2018 12:00 AM Decadron 8mg Injection, [facility] Medicaid Reviewed 04/15/2018 12:00 AM Depo-Medrol 80mg Injection, [facility] Medicare Reviewed 05/26/2018 12:00 AM Toradol 60 Mg Injection, [facility] Medicare Reviewed 05/26/2018 12:00 AM Toradol 60 Mg Injection, [facility] Medicaid Reviewed 05/26/2018 12:00 AM Phenergan 50mg Injection, [facility] Medicaid Reviewed 05/26/2018 12:00 AM THERAPEUTIC PROPHYLACTIC/DX INJECTION SUBQ/IM Reviewed 06/23/2018 12:00 AM COMPLETE CBC W/AUTO DIFF WBC Returned 06/23/2018 12:00 AM COMPREHEN METABOLIC PANEL Returned 06/23/2018 12:00 AM LIPID PANEL Returned 06/23/2018 12:00 AM CHEST X-RAY 2VW FRONTAL&LATL Returned 08/27/2009 12:00 AM OSTEOPATH MANJ 1-2 REGIONS Reviewed 08/27/2009 12:00 AM Depo-Medrol [address] [facility] [id number]~[place]unira Reviewed 08/27/2009 12:00 AM OSTEOPATH MANJ 1-2 REGIONS Reviewed 08/27/2009 12:00 AM Depo-Medrol 120 Mg Im/[facility]# [id number] Reviewed 06/28/2018 12:00 AM Type & Cross Returned 08/27/2009 12:00 AM OSTEOPATH MANJ 1-2 REGIONS Reviewed 08/27/2009 12:00 AM Depo-Medrol 120 Mg Im/[facility]# [id number] Reviewed 04/30/2009 12:00 AM THER/PROPH/DIAG INJ SC/IM Reviewed 04/30/2009 12:00 AM Depo-Medrol 120 Mg Im/[facility]# [id number] Reviewed Results Summary Date and Description Results [...] Policy Number Policy Group Number Start Date [facility] Comm Plan of [id number] N/A [facility] Comm [id number] N/A [place] Medical Assistance Program [place] Prog [id number] N/A History of Encounters Visit Date Visit [...] Lancasteruman DO 03/09/2017 Office visit Reggie Azar INJECTION MOLDING MACHINE OPERATOR 02/26/2017 [facility] Song Bouman DO 02/04/2017 Office visit Reggie Azar INJECTION MOLDING MACHINE OPERATOR 02/04/2017 [facility] Jun Stacy MD 02/03/2017 Procedures Song Wright DO 01/23/2017 Office visit Reggie Azar INJECTION MOLDING MACHINE OPERATOR 01/14/2017 Office visit Reggie Doe INJECTION MOLDING MACHINE OPERATOR 01/06/2017 Office visit Reggie Doe INJECTION MOLDING MACHINE OPERATOR 12/23/2016 Office visit Reggie Doe INJECTION MOLDING MACHINE OPERATOR 11/25/2016 Nurse visit Reggie Azar INJECTION MOLDING MACHINE OPERATOR 09/30/2016 Office visit Reggie Doe INJECTION MOLDING MACHINE OPERATOR 09/17/2016 Office visit Reggie Doe INJECTION MOLDING MACHINE OPERATOR 09/02/2016 Office visit Reggie Doe INJECTION MOLDING MACHINE OPERATOR 08/19/2016 Office visit Reggie Doe INJECTION MOLDING MACHINE OPERATOR 08/05/2016 Office visit Reggieelizabeth Charltonle INJECTION MOLDING MACHINE OPERATOR 11/13/2015 Hospital Jun Stacy MD 01/27/2014 Surgery Song Bouman DO 01/03/2014 Hospital Song Bouman DO 01/03/2014 Hospital Jun Stacy MD 01/02/2014 [facility] Song Bouman DO 08/27/2009 Office visit Gabe V. Munira DO 08/02/2009 Nurse visit Gabe V. Munira DO 05/28/2009 Office visit Gabe V. Munira DO 04/30/2009 Nurse visit Gabe V. Munira DO 01/10/2009 Office visit Gabe V. Munira DO
--- OUTSIDE RECORDS SUMMARY | 2018-09-02 09:03 | XMS REPORT ---
Author Song Jamil [facility] Address [address] [place], [place] [address] Care Team Providers Care Head Of Art Name Role Phone Song Wright PCP YVES CHRISTIE PreferredProvider Allergies and Adverse Reactions Name Reaction Notes Keflex anaphylaxis Plan of Treatment Planned Activity Comments Planned Date Planned Time Plan/Goal XR acute abdomen series 07/09/2017 12:00 AM Hip X-ray: AP / Lat 07/09/2017 12:00 AM CBC with Differential 05/26/2018 12:00 AM CMP 05/26/2018 12:00 AM .Lipid Panel 05/26/2018 12:00 AM chronic hip and neck pain [...] Low Dose 81 mg oral tablet,delayed release (/EC) 04/03/2017 take 1 tablet (81 mg) by [...] TAKE ONE TABLET BY MOUTH TWICE DAILY Fransico [id number] -5.86 gram oral recon soln 06/29/2018 [...] route every 4- 6 hours as needed [place] 10-325 mg oral tablet 05/21/2017 06/20/2017 take [...] 24hr 10/16/2009 08/05/2016 TAKE ONE CAPSULE DAILY [place] 10-325 mg oral tablet 08/05/2016 take 1 [...] PUD (peptic ulcer disease) Active 06/29/2018 Abdominal Pain Active 06/29/2018 Colon cancer screening Active 06/29/2018 [...] denies alcohol use Tobacco Use 2016 - 1/ pack daily disabeled Tobacco Current every day smoker History of Procedures Date Ordered Description Order Status 05/28/2009 12:00 AM Depo-Medrol 120 Mg Im/[facility]# [id number] Reviewed 08/05/2016 12:00 AM DESTRUCT PREMALG LESION [...] Reviewed 05/25/2017 12:00 AM Decadron 8mg Injection, [facility] Medicare Reviewed 06/09/2017 12:00 AM Decadron 8mg Injection, [facility] Medicare Reviewed 06/09/2017 12:00 AM Toradol 60 Mg Injection, [facility] Medicare Reviewed 06/09/2017 12:00 AM THERAPEUTIC PROPHYLACTIC/DX INJECTION SUBQ/IM Reviewed 08/02/2009 12:00 AM THER/PROPH/DIAG INJ SC/IM Reviewed 08/02/2009 12:00 AM Depo-Medrol [address] [facility] [id number]~Munira Reviewed 09/21/2017 12:00 AM Decadron 8mg Injection, [facility] Medicaid Reviewed 09/21/2017 12:00 AM Depo-Medrol 80 Mg Injection, [facility] Medicaid Reviewed 09/21/2017 12:00 AM THERAPEUTIC PROPHYLACTIC/DX INJECTION SUBQ/IM Reviewed 11/25/2017 12:00 AM THERAPEUTIC PROPHYLACTIC/DX INJECTION SUBQ/IM Reviewed 11/25/2017 12:00 AM Decadron 8mg Injection, [facility] Medicaid Reviewed 11/25/2017 12:00 AM Depo-Medrol 80 Mg Injection, [facility] Medicaid Reviewed 12/23/2017 12:00 AM THERAPEUTIC PROPHYLACTIC/DX INJECTION SUBQ/IM Reviewed 12/23/2017 12:00 AM Decadron 8mg Injection, [facility] Medicaid Reviewed 12/23/2017 12:00 AM Phenergan 50mg Injection, [facility] Medicaid Reviewed 02/22/2018 12:00 AM THERAPEUTIC PROPHYLACTIC/DX INJECTION SUBQ/IM Reviewed 02/22/2018 12:00 AM Toradol 60 Mg Injection, [facility] Medicaid Reviewed 04/15/2018 12:00 AM THERAPEUTIC PROPHYLACTIC/DX INJECTION SUBQ/IM Reviewed 04/15/2018 12:00 AM Decadron 8mg Injection, [facility] Medicaid Reviewed 04/15/2018 12:00 AM Depo-Medrol 80mg Injection, [facility] Medicare Reviewed 05/26/2018 12:00 AM Toradol 60 Mg Injection, [facility] Medicare Reviewed 05/26/2018 12:00 AM Toradol 60 Mg Injection, [facility] Medicaid Reviewed 05/26/2018 12:00 AM Phenergan 50mg Injection, [facility] Medicaid Reviewed 05/26/2018 12:00 AM THERAPEUTIC PROPHYLACTIC/DX INJECTION SUBQ/IM Reviewed 06/23/2018 12:00 AM COMPLETE CBC W/AUTO DIFF WBC Returned 06/23/2018 12:00 AM COMPREHEN METABOLIC PANEL Returned 06/23/2018 12:00 AM LIPID PANEL Returned 06/23/2018 12:00 AM CHEST X-RAY 2VW FRONTAL&LATL Returned 08/27/2009 12:00 AM OSTEOPATH MANJ 1-2 REGIONS Reviewed 08/27/2009 12:00 AM Depo-Medrol [address] [facility] [id number]~Munira Reviewed 08/27/2009 12:00 AM OSTEOPATH MANJ 1-2 REGIONS Reviewed 08/27/2009 12:00 AM Depo-Medrol 120 Mg Im/[facility]# [id number] Reviewed 06/28/2018 12:00 AM Type & Cross Returned 08/27/2009 12:00 AM OSTEOPATH MANJ 1-2 REGIONS Reviewed 08/27/2009 12:00 AM Depo-Medrol 120 Mg Im/[facility]# [id number] Reviewed 04/30/2009 12:00 AM THER/PROPH/DIAG INJ SC/IM Reviewed 04/30/2009 12:00 AM Depo-Medrol 120 Mg Im/[facility]# [id number] Reviewed Results Summary Date and Description Results [...] 06/29/2018 PUD (peptic ulcer disease) 06/29/2018 Abdominal Pain 06/29/2018 Colon cancer screening 06/29/2018 Plantar wart [...] skin Sep 2016 9:05AM Anesthesia of skin Jan 06 2017 9:05AM Lipoma of buttock Sep 2016 9:05AM [...] 8:13AM Fatigue b 2018 7:54AM Tooth infection b 2018 7:54AM Hyperlipemia b 2018 7:54AM Periodontitis b 2018 8:59AM Chronic cough b 2018 8:59AM Nausea b 2018 8:59AM Mouth pain b 2018 8:59AM Periodontal Disease May 26 2018 [...] (peptic ulcer disease) Jun 29 2018 3:05PM Payers Insurance Name Company Name Plan Name Plan Number Policy Number Policy Group Number Start Date [facility] Comm Plan of [id number] N/A [facility] Comm [id number] N/A [place] Medical Assistance Program [place] Prog [id number] N/A History of Encounters Visit Date Visit Type Provider 06/29/2018 Office visit Song Wright DO 05/26/2018 Office visit YVES JACQUES 04/15/2018 Office visit YVES JACQUES 02/22/2018 Office visit YVES JACQUES 02/03/2018 Office visit YVES JACQUES 12/24/2017 Voided Song Wright DO 12/24/2017 Hospital Song Wright DO 12/23/2017 Office visit YVES JACQUES 11/25/2017 Office visit YVES JACQUES 09/21/2017 Office visit YVES JACQUES 07/09/2017 Office visit YVES JACQUES 06/09/2017 Office visit YVES JACQUES 05/25/2017 Office visit YVES JACQUES 04/29/2017 Office visit YVES JACQUES 04/02/2017 Office visit YVES JACQUES 03/23/2017 Office visit YVES JACQUES 03/17/2017 Surgery Song Bouman DO 03/09/2017 Office visit Reggie Azar WATCH INSPECTOR FINAL MOVEMENT 02/26/2017 [facility] Song Lancasteruman DO 02/04/2017 Office visit Reggie Azar WATCH INSPECTOR FINAL MOVEMENT 02/04/2017 Hospital Jun Stacy MD 02/03/2017 Procedures Song Wright DO 01/23/2017 Office visit Reggie Azar WATCH INSPECTOR FINAL MOVEMENT 01/14/2017 Office visit Reggie Azar WATCH INSPECTOR FINAL MOVEMENT 01/06/2017 Office visit Reggie Azar WATCH INSPECTOR FINAL MOVEMENT 12/23/2016 Office visit Reggie Azar WATCH INSPECTOR FINAL MOVEMENT 11/25/2016 Nurse visit Reggie Azar WATCH INSPECTOR FINAL MOVEMENT 09/30/2016 Office visit Reggie Azar WATCH INSPECTOR FINAL MOVEMENT 09/17/2016 Office visit Reggie Azar WATCH INSPECTOR FINAL MOVEMENT 09/02/2016 Office visit Reggie Azar WATCH INSPECTOR FINAL MOVEMENT 08/19/2016 Office visit Reggie Azar WATCH INSPECTOR FINAL MOVEMENT 08/05/2016 Office visit Reggie Azar WATCH INSPECTOR FINAL MOVEMENT 11/13/2015 Hospital Jun Stacy MD 01/27/2014 Surgery Song Bobeni DO 01/03/2014 Hospital Song Wright DO 01/03/2014 Hospital uJn Stacy MD 01/02/2014 Hospital Song Wright DO 08/27/2009 Office visit Gabe VAnisha Munira DO 08/02/2009 Nurse visit Gabe V. Munira DO 05/28/2009 Office visit Gabe V. Munira DO 04/30/2009 Nurse visit Gabe V. Munira DO 01/10/2009 Office visit Gabe V. Munira DO
--- OUTSIDE RECORDS SUMMARY | 2018-09-02 09:04 | XMS REPORT ---
Author Song Jamil [facility] Address [address] [place], [place] [address] Care Team Providers Care Office Machinery Or Equipment Installer Name Role Phone Song Wright PCP YVES [...] route every 4- 6 hours as needed [place] 10-325 mg oral tablet 05/21/2017 06/20/2017 take [...] 24hr 10/16/2009 08/05/2016 TAKE ONE CAPSULE DAILY [place] 10-325 mg oral tablet 08/05/2016 take 1 [...] Status 05/28/2009 12:00 AM Depo-Medrol 120 Mg Im/[facility]# [id number] Reviewed 08/05/2016 12:00 AM DESTRUCT PREMALG LESION [...] Reviewed 05/25/2017 12:00 AM Decadron 8mg Injection, [facility] Medicare Reviewed 06/09/2017 12:00 AM Decadron 8mg Injection, [facility] Medicare Reviewed 06/09/2017 12:00 AM Toradol 60 Mg Injection, [facility] Medicare Reviewed 06/09/2017 12:00 AM THERAPEUTIC PROPHYLACTIC/DX INJECTION SUBQ/IM Reviewed 08/02/2009 12:00 AM THER/PROPH/DIAG INJ SC/IM Reviewed 08/02/2009 12:00 AM Depo-Medrol 120 Mg [facility] [id number]~[place]ira Reviewed 09/21/2017 12:00 AM Decadron 8mg Injection, [facility] Medicaid Reviewed 09/21/2017 12:00 AM Depo-Medrol 80 Mg Injection, [facility] Medicaid Reviewed 09/21/2017 12:00 AM THERAPEUTIC PROPHYLACTIC/DX INJECTION SUBQ/IM Reviewed 11/25/2017 12:00 AM THERAPEUTIC PROPHYLACTIC/DX INJECTION SUBQ/IM Reviewed 11/25/2017 12:00 AM Decadron 8mg Injection, [facility] Medicaid Reviewed 11/25/2017 12:00 AM Depo-Medrol 80 Mg Injection, [facility] Medicaid Reviewed 12/23/2017 12:00 AM THERAPEUTIC PROPHYLACTIC/DX INJECTION SUBQ/IM Reviewed 12/23/2017 12:00 AM Decadron 8mg Injection, [facility] Medicaid Reviewed 12/23/2017 12:00 AM Phenergan 50mg Injection, [facility] Medicaid Reviewed 02/22/2018 12:00 AM THERAPEUTIC PROPHYLACTIC/DX INJECTION SUBQ/IM Reviewed 02/22/2018 12:00 AM Toradol 60 Mg Injection, [facility] Medicaid Reviewed 04/15/2018 12:00 AM THERAPEUTIC PROPHYLACTIC/DX INJECTION SUBQ/IM Reviewed 04/15/2018 12:00 AM Decadron 8mg Injection, [facility] Medicaid Reviewed 04/15/2018 12:00 AM Depo-Medrol 80mg Injection, [facility] Medicare Reviewed 05/26/2018 12:00 AM Toradol 60 Mg Injection, [facility] Medicare Reviewed 05/26/2018 12:00 AM Toradol 60 Mg Injection, [facility] Medicaid Reviewed 05/26/2018 12:00 AM Phenergan 50mg Injection, [facility] Medicaid Reviewed 05/26/2018 12:00 AM THERAPEUTIC PROPHYLACTIC/DX INJECTION SUBQ/IM Reviewed 06/23/2018 12:00 AM COMPLETE CBC W/AUTO DIFF WBC Returned 06/23/2018 12:00 AM COMPREHEN METABOLIC PANEL Returned 06/23/2018 12:00 AM LIPID PANEL Returned 06/23/2018 12:00 AM CHEST X-RAY 2VW FRONTAL&LATL Returned 08/27/2009 12:00 AM OSTEOPATH MANJ 1-2 REGIONS Reviewed 08/27/2009 12:00 AM Depo-Medrol 120 Mg [facility] [id number]~[place]ira Reviewed 08/27/2009 12:00 AM OSTEOPATH MANJ 1-2 REGIONS Reviewed 08/27/2009 12:00 AM Depo-Medrol 120 Mg Im/[facility]# [id number] Reviewed 06/28/2018 12:00 AM Type & Cross Returned 08/27/2009 12:00 AM OSTEOPATH MANJ 1-2 REGIONS Reviewed 08/27/2009 12:00 AM Depo-Medrol 120 Mg Im/[facility]# [id number] Reviewed 04/30/2009 12:00 AM THER/PROPH/DIAG INJ SC/IM Reviewed 04/30/2009 12:00 AM Depo-Medrol 120 Mg Im/[facility]# [address]-21 Reviewed Results Summary Date and Description Results [...] Policy Number Policy Group Number Start Date [facility] Comm Plan of [id number] N/A [facility] Comm [id number] N/A [place] Program [place] Prog [id number] N/A History of Encounters Visit Date Visit [...] Bouman DO 03/09/2017 Office visit Reggie Azar BEEF CATTLE SPECIALIST 02/26/2017 [facility] Song Lancasteruman DO 02/04/2017 Office visit Reggie Azar BEEF CATTLE SPECIALIST 02/04/2017 Hospital Jun Stacy MD 02/03/2017 Procedures Song Wright DO 01/23/2017 Office visit Reggie Azar BEEF CATTLE SPECIALIST 01/14/2017 Office visit Reggie Azar BEEF CATTLE SPECIALIST 01/06/2017 Office visit Reggie Azar BEEF CATTLE SPECIALIST 12/23/2016 Office visit Reggie Azar BEEF CATTLE SPECIALIST 11/25/2016 Nurse visit Reggie Azar BEEF CATTLE SPECIALIST 09/30/2016 Office visit Reggie Azar BEEF CATTLE SPECIALIST 09/17/2016 Office visit Reggie Azar BEEF CATTLE SPECIALIST 09/02/2016 Office visit Reggie Azar BEEF CATTLE SPECIALIST 08/19/2016 Office visit Reggie Azar BEEF CATTLE SPECIALIST 08/05/2016 Office visit Regige Azar BEEF CATTLE SPECIALIST 11/13/2015 Hospital Jun Stacy MD 01/27/2014 Surgery Song Bobeni DO 01/03/2014 Hospital Song Wright DO 01/03/2014 Hospital Jun Stacy MD 01/02/2014 Hospital Song Wright DO 08/27/2009 Office visit Gabe VAnisha Munira DO 08/02/2009 Nurse visit Gabe V. Munira DO 05/28/2009 Office visit Gabe V. Munira DO 04/30/2009 Nurse visit Gabe V. Munira DO 01/10/2009 Office visit Gabe V. Munira DO
--- OUTSIDE RECORDS SUMMARY | 2018-09-02 09:05 | XMS REPORT ---
Author Author YVES CHRISTIE [facility] Address [address] [place], [place] [id number] Care Team Providers Care Records Analysis Manager Name Role Phone YVES CHRISTIE PCP YVES CHRISTIE PreferredProvider Allergies and Adverse [...] 1 hour before meals and at bedtime Protonix 40 mg oral tablet,delayed release (DR/EC) take 1 tablet (40 mg ) by oral route once daily simvastatin 40 mg oral tablet 03/03/2018 TAKE ONE TABLET BY MOUTH AT BEDTIME famotidine 40 mg oral tablet 03/29/2018 TAKE ONE TABLET BY MOUTH TWICE DAILY omeprazole 40 mg oral capsule,delayed release(DR/EC) 03/29/2018 TAKE ONE CAPSULE BY MOUTH EVERY MORNING Effexor XR 150 mg oral capsule,extended release 24hr 05/18/2018 take 1 capsule (150 mg) by oral route once daily with food for 30 days lisinopril 10 mg oral tablet 05/18/2018 TAKE ONE TABLET BY MOUTH EVERY MORNING Tylenol-Codeine #3 300-30 mg oral tablet 05/31/2018 06/30/2018 take 2 tablets by oral route every 6 hours as needed ferrous sulfate 325 mg (65 mg iron) oral tablet 06/14/2018 TAKE ONE TABLET BY MOUTH EVERY MORNING aspirin 325 mg oral tablet,delayed release (DR/EC) 06/14/2018 TAKE ONE TABLET BY MOUTH EVERY MORNING Name Start Date Expiration Date SIG Comments [...] route every 4- 6 hours as needed [place] 10-325 mg oral tablet 05/21/2017 06/20/2017 take [...] (15 mg) by oral route once daily Tylenol-Codeine #3 [...] 3 times a day for 10 days Discontinued Name Start Date Discontinued Date SIG [...] 24hr 10/16/2009 08/05/2016 TAKE ONE CAPSULE DAILY [place] 10-325 mg oral tablet 08/05/2016 take 1 [...] Medication overdose, intentional self-harm, sequela Active 02/09/2018 Vital Signs Date Time BP-Sys(mm[Hg] BP-[place](mm[Hg]) HR(bpm) RR(rpm) Temp WT HT HC BMI BSA BMI Percentile O2 Sat(%) 05/26/2018 8:52:00 AM 128 mmHg 74 mmHg 78 bpm 18 rpm 98.4 F 164 lbs 63 in 29.051 kg/m 1.8184 m 98 % 04/15/2018 8:11:00 AM 116 mmHg 70 mmHg 102 bpm 18 rpm 97.9 F 156 lbs 98 % 02/22/2018 10:36:00 AM 116 mmHg 72 mmHg 102 bpm 18 rpm 98.1 F 154 lbs 64 in 26.43 kg/m2 1.78 m2 98 % 02/03/2018 1:25:00 PM 108 mmHg [...] Status 05/28/2009 12:00 AM Depo-Medrol 120 Mg Im/[facility]# [address]-25 Reviewed 08/05/2016 12:00 AM DESTRUCT PREMALG LESION [...] Reviewed 05/25/2017 12:00 AM [facility]ad[facility] 8mg [facility], [facility] Reviewed 06/09/2017 12:00 AM Decadron 8mg In[facility], [facility] Medicare Reviewed 06/09/2017 12:00 AM Toradol 60 Mg Injection, [facility] Medicare Reviewed 06/09/2017 12:00 AM THERAPEUTIC PROPHYLACTIC/DX INJECTION SUBQ/IM Reviewed 08/02/2009 12:00 AM THER/PROPH/DIAG INJ SC/IM Reviewed 08/02/2009 12:00 AM Depo-Medrol 120 Mg [facility] [id number]~[place] Reviewed 09/21/2017 12:00 AM Decadron 8mg Injection, [facility] Medicaid Reviewed 09/21/2017 12:00 AM Depo-Medrol 80 Mg [facility]jection, [facility] Medicaid Reviewed 09/21/2017 12:00 AM THERAPEUTIC PROPHYLACTIC/DX INJECTION SUBQ/IM Reviewed 11/25/2017 12:00 AM THERAPEUTIC PROPHYLACTIC/DX INJECTION SUBQ/IM Reviewed 11/25/2017 12:00 AM Decadron 8mg Injection, [facility] Medicaid Reviewed 11/25/2017 12:00 AM Depo-Medrol 80 Mg Injection, [facility] Medicaid Reviewed 12/23/2017 12:00 AM THERAPEUTIC PROPHYLACTIC/DX INJECTION SUBQ/IM Reviewed 12/23/2017 12:00 AM Decadron 8mg Injection, [facility] Medicaid Reviewed 12/23/2017 12:00 AM Phenergan 50mg Injection, [facility] Medicaid Reviewed 02/22/2018 12:00 AM THERAPEUTIC PROPHYLACTIC/DX INJECTION SUBQ/IM Reviewed 02/22/2018 12:00 AM Toradol 60 Mg Injection, [facility] Medicaid Reviewed 04/15/2018 12:00 AM THERAPEUTIC PROPHYLACTIC/DX INJECTION SUBQ/IM Reviewed 04/15/2018 12:00 AM Decadron 8mg Injection, [facility] Medicaid Reviewed 04/15/2018 12:00 AM Depo-Medrol 80mg Injection, [facility] Medicare Reviewed 05/26/2018 12:00 AM Toradol 60 Mg Injection, [facility] Medicare Reviewed 05/26/2018 12:00 AM Toradol 60 Mg [facility]jection, [facility] Medicaid Reviewed 05/26/2018 12:00 AM Phenergan 50mg Injection, [facility] Medicaid Reviewed 05/26/2018 12:00 AM THERAPEUTIC PROPHYLACTIC/DX INJECTION SUBQ/IM Reviewed 06/23/2018 12:00 AM COMPLETE CBC W/AUTO DIFF WBC Returned 06/23/2018 12:00 AM COMPREHEN METABOLIC PANEL Returned 06/23/2018 12:00 AM LIPID PANEL Returned 06/23/2018 12:00 AM CHEST X-RAY 2VW FRONTAL&LATL Returned 08/27/2009 12:00 AM OSTEOPATH MANJ 1-2 REGIONS Reviewed 08/27/2009 12:00 AM Depo-Medrol 120 Mg [facility] [id number]~[place] Reviewed 08/27/2009 12:00 AM OSTEOPATH MANJ 1-2 REGIONS Reviewed 08/27/2009 12:00 AM Depo-Medrol 120 Mg Im/[facility]# [address]-85 Reviewed 08/27/2009 12:00 AM OSTEOPATH MANJ 1-2 REGIONS Reviewed 08/27/2009 12:00 AM Depo-Medrol 120 Mg Im/[facility]# [address]-37 Reviewed 04/30/2009 12:00 AM THER/PROPH/DIAG INJ SC/IM Reviewed 04/30/2009 12:00 AM Depo-Medrol 120 Mg Im/[facility]# [address]-50 Reviewed Results Summary Date and Description Results [...] 02/09/2018 Medication overdose, intentional self-harm, sequela 02/09/2018 Plantar wart of right foot Aug 05 [...] unspecified type Apr 15 2018 8:13AM Fatigue May 26 2018 7:54AM Tooth infection May 26 2018 7:54AM Hyperlipemia May 26 2018 7:54AM Periodontitis May 26 2018 8:59AM Chronic cough May 26 2018 8:59AM Nausea May 26 2018 8:59AM Mouth pain May 26 2018 8:59AM Periodontal Disease May 26 2018 8:59AM Tooth caries May 26 2018 8:59AM Fatigue Jun 23 2018 3:18PM Tooth infection Jun 23 2018 3:18PM Hyperlipemia Jun 23 2018 3:18PM Cough Jun 23 2018 3:18PM Anemia Jun 28 2018 4:06PM Payers Insurance Name Company Name Plan Name Plan Number Policy Number Policy Group Number Start Date [facility] [place] Community Plan [facility] Comm Plan of [id number] N/A [facility] - Community [facility] Comm [id number] N/A [place] [employer] [place] [employer] [place] Prog [id number] N/A History of Encounters Visit Date Visit Type Provider 05/26/2018 Office visit YVES JACQUES 04/15/2018 Office [...] Office visit YVES JACQUES 03/17/2017 Surgery Song Wright DO 03/09/2017 Office visit Reggie Azar NP 02/26/2017 Hospital Song Wright DO 02/04/2017 Office visit Reggie Azar NP 02/04/2017 [place] Stacy MD 02/03/2017 Procedures Song Wright DO 01/23/2017 Office visit Reggie Azar NP 01/14/2017 Office visit Reggie Azar NP 01/06/2017 Office visit Reggie Azar RESIDENTIAL DESIGNER 12/23/2016 Office visit Reggie Azar RESIDENTIAL DESIGNER 11/25/2016 Nurse visit Reggie Azar RESIDENTIAL DESIGNER 09/30/2016 Office visit Reggie Azar RESIDENTIAL DESIGNER 09/17/2016 Office visit Reggie Azar RESIDENTIAL DESIGNER 09/02/2016 Office visit Reggie Azar RESIDENTIAL DESIGNER 08/19/2016 Office visit Reggie Azar RESIDENTIAL DESIGNER 08/05/2016 Office visit Reggie Azar RESIDENTIAL DESIGNER 11/13/2015 Hospital Jun Stacy MD 01/27/2014 Surgery [facility] DO 01/03/2014 [facility] 01/03/2014 [facility] Jun Stacy MD 01/02/2014 [facility] DO 08/27/2009 Office visit Gabe Lombardo DO 08/02/2009 Nurse visit Gabe Lombardo DO 05/28/2009 Office visit Gabe Lombardo DO 04/30/2009 Nurse visit Gabe Lombardo DO 01/10/2009 Office visit Gabe Lombardo DO
--- OUTSIDE RECORDS SUMMARY | 2018-09-02 09:07 | XMS REPORT ---
Author Author YVES CHRISTIE [facility] Address [address] [place], [place] [address] Care Team Providers Care Sonography Technician Name Role Phone YVES CHRISTIE PCP YVES [...] route every 4- 6 hours as needed [facility] 10-325 mg oral tablet 05/21/2017 06/20/2017 take [...] 24hr 10/16/2009 08/05/2016 TAKE ONE CAPSULE DAILY [facility] 10-325 mg oral tablet 08/05/2016 take 1 [...] Status 05/28/2009 12:00 AM Depo-Medrol 120 Mg Im/[facility]# [address]-08 Reviewed 08/05/2016 12:00 AM DESTRUCT PREMALG LESION [...] Reviewed 05/25/2017 12:00 AM Decadron 8mg Injection, [facility] Medicare Reviewed 06/09/2017 12:00 AM Decadron 8mg Injection, [facility] Medicare Reviewed 06/09/2017 12:00 AM Toradol 60 Mg Injection, [facility] Medicare Reviewed 06/09/2017 12:00 AM THERAPEUTIC PROPHYLACTIC/DX INJECTION SUBQ/IM Reviewed 08/02/2009 12:00 AM THER/PROPH/DIAG INJ SC/IM Reviewed 08/02/2009 12:00 AM Depo-Medrol 120 Mg [facility] [id number]~[place] Reviewed 09/21/2017 12:00 AM Decadron 8mg Injection, [facility] Medicaid Reviewed 09/21/2017 12:00 AM Depo-Medrol 80 Mg Injection, [facility] Medicaid Reviewed 09/21/2017 12:00 AM THERAPEUTIC PROPHYLACTIC/DX INJECTION SUBQ/IM Reviewed 11/25/2017 12:00 AM THERAPEUTIC PROPHYLACTIC/DX INJECTION SUBQ/IM Reviewed 11/25/2017 12:00 AM Decadron 8mg Injection, [facility] Medicaid Reviewed 11/25/2017 12:00 AM Depo-Medrol 80 Mg Injection, [facility] Medicaid Reviewed 12/23/2017 12:00 AM THERAPEUTIC PROPHYLACTIC/DX INJECTION SUBQ/IM Reviewed 12/23/2017 12:00 AM Decadron 8mg Injection, [facility] Medicaid Reviewed 12/23/2017 12:00 AM Phenergan 50mg Injection, [facility] Medicaid Reviewed 02/22/2018 12:00 AM THERAPEUTIC PROPHYLACTIC/DX INJECTION SUBQ/IM Reviewed 02/22/2018 12:00 AM Toradol 60 Mg Injection, [facility] Medicaid Reviewed 04/15/2018 12:00 AM THERAPEUTIC PROPHYLACTIC/DX INJECTION SUBQ/IM Reviewed 04/15/2018 12:00 AM Decadron 8mg Injection, [facility] Medicaid Reviewed 04/15/2018 12:00 AM Depo-Medrol 80mg Injection, [facility] Medicare Reviewed 05/26/2018 12:00 AM Toradol 60 Mg Injection, [facility] Medicare Reviewed 05/26/2018 12:00 AM Toradol 60 Mg Injection, [facility] Medicaid Reviewed 05/26/2018 12:00 AM Phenergan 50mg Injection, [facility] Medicaid Reviewed 05/26/2018 12:00 AM THERAPEUTIC PROPHYLACTIC/DX INJECTION SUBQ/IM Reviewed 06/23/2018 12:00 AM COMPLETE CBC W/AUTO DIFF WBC Returned 06/23/2018 12:00 AM COMPREHEN METABOLIC PANEL Returned 06/23/2018 12:00 AM LIPID PANEL Returned 06/23/2018 12:00 AM CHEST X-RAY 2VW FRONTAL&LATL Returned 08/27/2009 12:00 AM OSTEOPATH MANJ 1-2 REGIONS Reviewed 08/27/2009 12:00 AM Depo-Medrol 120 Mg [facility] [id number]~[place] Reviewed 08/27/2009 12:00 AM OSTEOPATH MANJ 1-2 REGIONS Reviewed 08/27/2009 12:00 AM Depo-Medrol 120 Mg Im/[facility]# [address]-40 Reviewed 08/27/2009 12:00 AM OSTEOPATH MANJ 1-2 REGIONS Reviewed 08/27/2009 12:00 AM Depo-Medrol 120 Mg Im/[facility]# [address]-02 Reviewed 04/30/2009 12:00 AM THER/PROPH/DIAG INJ SC/IM Reviewed 04/30/2009 12:00 AM Depo-Medrol 120 Mg Im/[facility]# [address]-99 Reviewed Results Summary Date and Description Results [...] 2018 3:18PM Cough Jun 23 2018 3:18PM Payers Insurance Name Company Name Plan Name Plan Number Policy Number Policy Group Number Start Date [facility] Community [facility] Comm Plan of [id number] N/A [facility] - Community [facility] Comm [id number] N/A [place] Medical Assistance [facility] Medical Assistance Prog [id number] N/A History of Encounters Visit Date Visit Type Provider 05/26/2018 Office visit YVES JACQUES 04/15/2018 Office visit YVES JACQUES 02/22/2018 Office visit YVES JACQUES 02/03/2018 Office visit YVES JACQUES 12/24/2017 Voided Song Kyle DO 12/24/2017 Hospital Song Wright DO 12/23/2017 [...] Azar NP 01/06/2017 Office visit Reggie Azar NP 12/23/2016 Office visit Reggie Azar TYPING SECRETARY 11/25/2016 Nurse visit Reggie Azar TYPING SECRETARY 09/30/2016 Office visit Reggie Azar TYPING SECRETARY 09/17/2016 Office visit Reggie Azar TYPING SECRETARY 09/02/2016 Office visit Reggie Azar TYPING SECRETARY 08/19/2016 Office visit Reggie Azar TYPING SECRETARY 08/05/2016 Office visit Reggie Azar TYPING SECRETARY 11/13/2015 Hospital Jun Stacy MD 01/27/2014 Surgery [facility] DO 01/03/2014 Hospital [facility] DO 01/03/2014 [facility] Jun Stacy MD 01/02/2014 [facility] DO 08/27/2009 Office visit Gabe Lombardo DO 08/02/2009 Nurse visit Gabe Lombardo DO 05/28/2009 Office visit Gabe Lombardo DO 04/30/2009 Nurse visit Gabe Lombardo DO 01/10/2009 Office visit Gabe Lombardo DO
--- OUTSIDE RECORDS SUMMARY | 2018-09-02 09:08 | XMS REPORT ---
Author Author YVES CHRISTIE [facility] Address [address] [place], [place] [address] Care Team Providers Care Beading Installer Name Role Phone YVES CHRISTIE PCP YVES CHRISTIE PreferredProvider Allergies and Adverse Reactions Name Reaction Notes Keflex anaphylaxis Plan of Treatment Planned Activity Comments Planned Date Planned Time Plan/Goal XR acute abdomen series 07/09/2017 12:00 AM Hip X-ray: AP / Lat 07/09/2017 12:00 AM CBC with Differential 05/26/2018 12:00 AM CMP 05/26/2018 12:00 AM .Lipid Panel 05/26/2018 12:00 AM CBC with Differential 06/23/2018 12:00 AM CMP 06/23/2018 12:00 AM .Lipid Panel 06/23/2018 12:00 AM Chest x-ray, PA and lateral 06/23/2018 12:00 AM chronic hip and neck pain [...] route every 4- 6 hours as needed [place] 10-325 mg oral tablet 05/21/2017 06/20/2017 take [...] 24hr 10/16/2009 08/05/2016 TAKE ONE CAPSULE DAILY [place] 10-325 mg oral tablet 08/05/2016 take 1 [...] Status 05/28/2009 12:00 AM Depo-Medrol 120 Mg Im/[facility]# [id number] Reviewed 08/05/2016 12:00 AM DESTRUCT PREMALG LESION [...] Reviewed 05/25/2017 12:00 AM Decadron 8mg Injection, [facility] Medicare Reviewed 06/09/2017 12:00 AM Decadron 8mg Injection, [facility] Medicare Reviewed 06/09/2017 12:00 AM Toradol 60 Mg Injection, [facility] Medicare Reviewed 06/09/2017 12:00 AM THERAPEUTIC PROPHYLACTIC/DX INJECTION SUBQ/IM Reviewed 08/02/2009 12:00 AM THER/PROPH/DIAG INJ SC/IM Reviewed 08/02/2009 12:00 AM Depo-Medrol 120 Mg [facility] [id number]~[place] Reviewed 09/21/2017 12:00 AM Decadron 8mg Injection, [facility] Medicaid Reviewed 09/21/2017 12:00 AM Depo-Medrol 80 Mg Injection, [facility] Medicaid Reviewed 09/21/2017 12:00 AM THERAPEUTIC PROPHYLACTIC/DX INJECTION SUBQ/IM Reviewed 11/25/2017 12:00 AM THERAPEUTIC PROPHYLACTIC/DX INJECTION SUBQ/IM Reviewed 11/25/2017 12:00 AM Decadron 8mg Injection, [facility] Medicaid Reviewed 11/25/2017 12:00 AM Depo-Medrol 80 Mg Injection, [facility] Medicaid Reviewed 12/23/2017 12:00 AM THERAPEUTIC PROPHYLACTIC/DX INJECTION SUBQ/IM Reviewed 12/23/2017 12:00 AM Decadron 8mg Injection, [facility] Medicaid Reviewed 12/23/2017 12:00 AM Phenergan 50mg Injection, [facility] Medicaid Reviewed 02/22/2018 12:00 AM THERAPEUTIC PROPHYLACTIC/DX INJECTION SUBQ/IM Reviewed 02/22/2018 12:00 AM Toradol 60 Mg Injection, [facility] Medicaid Reviewed 04/15/2018 12:00 AM THERAPEUTIC PROPHYLACTIC/DX INJECTION SUBQ/IM Reviewed 04/15/2018 12:00 AM Decadron 8mg Injection, [facility] Medicaid Reviewed 04/15/2018 12:00 AM Depo-Medrol 80mg Injection, [facility] Medicare Reviewed 05/26/2018 12:00 AM Toradol 60 Mg Injection, [facility] Medicare Reviewed 05/26/2018 12:00 AM Toradol 60 Mg Injection, [facility] Medicaid Reviewed 05/26/2018 12:00 AM Phenergan 50mg Injection, [facility] Medicaid Reviewed 05/26/2018 12:00 AM THERAPEUTIC PROPHYLACTIC/DX INJECTION SUBQ/IM Reviewed 08/27/2009 12:00 AM OSTEOPATH MANJ 1-2 REGIONS Reviewed 08/27/2009 12:00 AM Depo-Medrol 120 Mg [facility] [id number]~[place] Reviewed 08/27/2009 12:00 AM OSTEOPATH MANJ 1-2 REGIONS Reviewed 08/27/2009 12:00 AM Depo-Medrol 120 Mg Im/[facility]# [address]-10 Reviewed 08/27/2009 12:00 AM OSTEOPATH MANJ 1-2 REGIONS Reviewed 08/27/2009 12:00 AM Depo-Medrol 120 Mg Im/[facility]# [address]-06 Reviewed 04/30/2009 12:00 AM THER/PROPH/DIAG INJ SC/IM Reviewed 04/30/2009 12:00 AM Depo-Medrol 120 Mg Im/[facility]# [address]-50 Reviewed Results Summary Date and Description Results [...] of buttock Sep 2016 9:05AM Abscessed tooth Jan 14 2017 11:05AM Abscessed tooth Jan 23 2017 9:50AM [...] Policy Number Policy Group Number Start Date [facility] Comm Plan of [id number] N/A [facility] Community [facility] Comm [id number] N/A [place] Medical Assistance [facility] Medical Assistance Prog [id number] N/A History of Encounters Visit Date Visit [...] Office visit YVES JACQUES 03/17/2017 Surgery Song Kyle DO 03/09/2017 Office visit Reggie Azar NP 02/26/2017 Hospital Song Wright DO 02/04/2017 Office visit Reggie Azar NP 02/04/2017 [place] Stacy MD 02/03/2017 Procedures Song Wright DO 01/23/2017 Office visit Reggie Azar NP 01/14/2017 Office visit Reggie Azar NP 01/06/2017 Office visit Reggie Azar NP 12/23/2016 Office visit Reggie Azar NP 11/25/2016 Nurse visit Reggie Azar DEBURR TECHNICIAN 09/30/2016 Office visit Reggie Azar DEBURR TECHNICIAN 09/17/2016 Office visit Reggie Azar DEBURR TECHNICIAN 09/02/2016 Office visit Reggie Azar DEBURR TECHNICIAN 08/19/2016 Office visit Reggie Azar DEBURR TECHNICIAN 08/05/2016 Office visit Reggie Azar DEBURR TECHNICIAN 11/13/2015 Hospital Jun Stacy MD 01/27/2014 Surgery [facility] DO [facility]/03[facility]2014 [facility] Jun Stacy MD 01/02/2014 [facility] 08/27/2009 Office visit Gabe Lombardo DO 08/02/2009 Nurse visit Gabe Lombardo DO 05/28/2009 Office visit Gabe Lombardo DO 04/30/2009 Nurse visit Gabe Lombardo DO 01/10/2009 Office visit Gabe Lombardo DO
--- OUTSIDE RECORDS SUMMARY | 2018-09-02 09:09 | XMS REPORT ---
Author Author YVES CHRISTIE [facility] Address [address] [place], [place] [id number] Care Team Providers Care Storage Solutions Architect Name Role Phone YVES CHRISTIE PCP YVES [...] TAKE ONE CAPSULE BY MOUTH EVERY MORNING ferrous sulfate 325 mg (65 mg iron) oral tablet 03/29/2018 TAKE ONE TABLET BY MOUTH EVERY MORNING aspirin 325 mg oral tablet,delayed release (DR/EC) 03/29/2018 TAKE ONE TABLET BY MOUTH EVERY MORNING Effexor XR 150 mg oral capsule,extended release 24hr 05/18/2018 take 1 capsule (150 mg) by oral route once daily with food for 30 days lisinopril 10 mg oral tablet 05/18/2018 TAKE ONE TABLET BY MOUTH EVERY MORNING clindamycin HCl 150 mg oral capsule 05/31/2018 06/10/2018 take 2 capsules by oral route 3 times a day for 10 days Tylenol-Codeine #3 300-30 mg oral tablet 05/31/2018 06/30/2018 take 2 tablets by oral route every 6 hours as needed Name Start Date Expiration Date SIG Comments [...] route every 4- 6 hours as needed [place] 10-325 mg oral tablet 05/21/2017 06/20/2017 take [...] 04/27/2018 2X4 days 1X4 days 1/2X4 days Discontinued Name Start Date Discontinued Date [...] 24hr 10/16/2009 08/05/2016 TAKE ONE CAPSULE DAILY [place] 10-325 mg oral tablet 08/05/2016 take 1 [...] Status 05/28/2009 12:00 AM Depo-Medrol 120 Mg Im/[facility]# [id number] Reviewed 08/05/2016 12:00 AM DESTRUCT PREMALG LESION [...] Reviewed 05/25/2017 12:00 AM Decadron 8mg Injection, [facility] Medicare Reviewed 06/09/2017 12:00 AM Decadron 8mg Injection, [facility] Medicare Reviewed 06/09/2017 12:00 AM Toradol 60 Mg Injection, [facility] Medicare Reviewed 06/09/2017 12:00 AM THERAPEUTIC PROPHYLACTIC/DX INJECTION SUBQ/IM Reviewed 08/02/2009 12:00 AM THER/PROPH/DIAG INJ SC/IM Reviewed 08/02/2009 12:00 AM Depo-Medrol 120 Mg [facility] [id number]~[place] Reviewed 09/21/2017 12:00 AM Decadron 8mg Injection, [facility] Medicaid Reviewed 09/21/2017 12:00 AM Depo-Medrol 80 Mg Injection, [facility] Medicaid Reviewed 09/21/2017 12:00 AM THERAPEUTIC PROPHYLACTIC/DX INJECTION SUBQ/IM Reviewed 11/25/2017 12:00 AM THERAPEUTIC PROPHYLACTIC/DX INJECTION SUBQ/IM Reviewed 11/25/2017 12:00 AM Decadron 8mg Injection, [facility] Medicaid Reviewed 11/25/2017 12:00 AM Depo-Medrol 80 Mg Injection, [facility] Medicaid Reviewed 12/23/2017 12:00 AM THERAPEUTIC PROPHYLACTIC/DX INJECTION SUBQ/IM Reviewed 12/23/2017 12:00 AM Decadron 8mg Injection, [facility] Medicaid Reviewed 12/23/2017 12:00 AM Phenergan 50mg Injection, [facility] Medicaid Reviewed 02/22/2018 12:00 AM THERAPEUTIC PROPHYLACTIC/DX INJECTION SUBQ/IM Reviewed 02/22/2018 12:00 AM Toradol 60 Mg Injection, [facility] Medicaid Reviewed 04/15/2018 12:00 AM THERAPEUTIC PROPHYLACTIC/DX INJECTION SUBQ/IM Reviewed 04/15/2018 12:00 AM Decadron 8mg Injection, [facility] Medicaid Reviewed 04/15/2018 12:00 AM Depo-Medrol 80mg Injection, [facility] Medicare Reviewed 05/26/2018 12:00 AM Toradol 60 Mg Injection, [facility] Medicare Reviewed 05/26/2018 12:00 AM Toradol 60 Mg Injection, [facility] Medicaid Reviewed 05/26/2018 12:00 AM Phenergan 50mg Injection, [facility] Medicaid Reviewed 05/26/2018 12:00 AM THERAPEUTIC PROPHYLACTIC/DX INJECTION SUBQ/IM Reviewed 08/27/2009 12:00 AM OSTEOPATH MANJ 1-2 REGIONS Reviewed 08/27/2009 12:00 AM Depo-Medrol 120 Mg [facility] [id number]~[place]ira Reviewed 08/27/2009 12:00 AM OSTEOPATH MANJ 1-2 REGIONS Reviewed 08/27/2009 12:00 AM Depo-Medrol 120 Mg Im/[facility]# [id number] Reviewed 08/27/2009 12:00 AM OSTEOPATH MANJ 1-2 REGIONS Reviewed 08/27/2009 12:00 AM Depo-Medrol 120 Mg Im/[facility]# [id number] Reviewed 04/30/2009 12:00 AM THER/PROPH/DIAG INJ SC/IM Reviewed 04/30/2009 12:00 AM Depo-Medrol 120 Mg Im/[facility]# [id number] Reviewed Results Summary Date and Description Results [...] May 28 2009 8:28AM Low Back Pain Feb 2009 8:28AM Anxiety Disorder b 2009 8:28AM Depressive Disorder b 2009 8:28AM Drug Abuse May 28 2009 8:28AM Pain in joint; Hip b 2009 8:28AM Pain in joint; Hip Aug [...] 2016 10:48AM Lumbago with sciatica, right side Jan 06 2017 9:05AM Other chronic pain Sep 2016 9:05AM [...] 8:59AM Tooth caries May 26 2018 8:59AM Payers Insurance Name Company Name Plan Name Plan Number Policy Number Policy Group Number Start Date [facility] Comm Plan of [id number] N/A [facility] Comm [id number] N/A [place] Medical [facility] Medical Assistance Prog [id number] N/A History of Encounters Visit Date Visit Type Provider 05/26/2018 Office visit YVES JACQUES 04/15/2018 Office visit YVES JACQUES 02/22/2018 Office visit YVES JACQUES 02/03/2018 Office visit YVES JACQUES 12/24/2017 Voided Song Kyle DO 12/24/2017 [facility] Song Wright DO 12/23/2017 Office visit YVES JACQUES 11/25/2017 Office visit YVES JACQUES 09/21/2017 Office visit YVES JACQUES 07/09/2017 Office visit YVES JACQUES 06/09/2017 Office visit YVES JACQUES 05/25/2017 Office visit YVES JACQUES 04/29/2017 Office visit YVES JACQUES 04/02/2017 Office visit YVES JACQUES 03/23/2017 Office visit YVES JACQUES 03/17/2017 Surgery Song Kyle DO 03/09/2017 Office visit Reggie Azar NP 02/26/2017 [facility] Song Wright DO 02/04/2017 Office visit Reggie Azar NP 02/04/2017 [facility] Jun Stacy MD 02/03/2017 Procedures Song Wright DO 01/23/2017 Office visit Reggie Azar NP 01/14/2017 Office visit Reggie Azar AUTO SERVICE ADVISOR 01/06/2017 Office visit Reggie Azar AUTO SERVICE ADVISOR 12/23/2016 Office visit Reggie Azar AUTO SERVICE ADVISOR 11/25/2016 Nurse visit Reggie Azar AUTO SERVICE ADVISOR 09/30/2016 Office visit Reggie Azar AUTO SERVICE ADVISOR 09/17/2016 Office visit Reggie Azar AUTO SERVICE ADVISOR 09/02/2016 Office visit Reggie Azar AUTO SERVICE ADVISOR 08/19/2016 Office visit Reggie Azar AUTO SERVICE ADVISOR 08/05/2016 Office visit Reggie Azar NP 11/13/2015 [facility] Jun Stacy MD 01/27/2014 Surgery Song Kyle DO 01/03/2014 Hospital Song Wright DO 01/03/2014 [facility] Basim Stacy MD 01/02/2014 [facility] Song Wright DO 08/27/2009 Office visit Gabe Lombardo DO 08/02/2009 Nurse visit Gabe Lombardo DO 05/28/2009 Office visit Gabe Lombardo DO 04/30/2009 Nurse visit Gabe Lombardo DO 01/10/2009 Office visit Gabe Lombardo DO
--- OUTSIDE RECORDS SUMMARY | 2018-09-02 09:11 | XMS REPORT ---
Author Author YVES CHRISTIE [facility] Address [address] [place], [place] [address] Care Team Providers Care Unix Administrator Name Role Phone YVES CHRISTIE PCP YVES [...] MORNING clindamycin HCl 150 mg oral capsule 05/26/2018 06/05/2018 take 2 capsules by oral route 3 times a day for 10 days Tylenol-Codeine #3 300-30 mg oral tablet 05/26/2018 06/25/2018 take 2 tablets by oral route every [...] route every 4- 6 hours as needed [place] 10-325 mg oral tablet 05/21/2017 06/20/2017 take [...] 24hr 10/16/2009 08/05/2016 TAKE ONE CAPSULE DAILY [place] 10-325 mg oral tablet 08/05/2016 take 1 [...] Status 05/28/2009 12:00 AM Depo-Medrol 120 Mg Im/[facility]# [id number] Reviewed 08/05/2016 12:00 AM DESTRUCT PREMALG LESION [...] Reviewed 05/25/2017 12:00 AM Decadron 8mg Injection, [facility] Medicare Reviewed 06/09/2017 12:00 AM Decadron 8mg Injection, [facility] Medicare Reviewed 06/09/2017 12:00 AM Toradol 60 Mg Injection, [facility] Medicare Reviewed 06/09/2017 12:00 AM THERAPEUTIC PROPHYLACTIC/DX INJECTION SUBQ/IM Reviewed 08/02/2009 12:00 AM THER/PROPH/DIAG INJ SC/IM Reviewed 08/02/2009 12:00 AM Depo-Medrol 120 Mg [facility] [id number]~Munira Reviewed 09/21/2017 12:00 AM Decadron 8mg Injection, [facility] Medicaid Reviewed 09/21/2017 12:00 AM Depo-Medrol 80 Mg Injection, [facility] Medicaid Reviewed 09/21/2017 12:00 AM THERAPEUTIC PROPHYLACTIC/DX INJECTION SUBQ/IM Reviewed 11/25/2017 12:00 AM THERAPEUTIC PROPHYLACTIC/DX INJECTION SUBQ/IM Reviewed 11/25/2017 12:00 AM Decadron 8mg Injection, [facility] Medicaid Reviewed 11/25/2017 12:00 AM Depo-Medrol 80 Mg Injection, [facility] Medicaid Reviewed 12/23/2017 12:00 AM THERAPEUTIC PROPHYLACTIC/DX INJECTION SUBQ/IM Reviewed 12/23/2017 12:00 AM Decadron 8mg Injection, [facility] Medicaid Reviewed 12/23/2017 12:00 AM Phenergan 50mg Injection, [facility] Medicaid Reviewed 02/22/2018 12:00 AM THERAPEUTIC PROPHYLACTIC/DX INJECTION SUBQ/IM Reviewed 02/22/2018 12:00 AM Toradol 60 Mg Injection, [facility] Medicaid Reviewed 04/15/2018 12:00 AM THERAPEUTIC PROPHYLACTIC/DX INJECTION SUBQ/IM Reviewed 04/15/2018 12:00 AM Decadron 8mg Injection, [facility] Medicaid Reviewed 04/15/2018 12:00 AM Depo-Medrol 80mg Injection, [facility] Medicare Reviewed 05/26/2018 12:00 AM Toradol 60 Mg Injection, [facility] Medicare Reviewed 05/26/2018 12:00 AM THERAPEUTIC PROPHYLACTIC/DX INJECTION SUBQ/IM Reviewed 08/27/2009 12:00 AM OSTEOPATH MANJ 1-2 REGIONS Reviewed 08/27/2009 12:00 AM Depo-Medrol 120 Mg [facility] [id number]~[place] Reviewed 08/27/2009 12:00 AM OSTEOPATH MANJ 1-2 REGIONS Reviewed 08/27/2009 12:00 AM Depo-Medrol 120 Mg Im/[facility]# [id number] Reviewed 08/27/2009 12:00 AM OSTEOPATH MANJ 1-2 REGIONS Reviewed 08/27/2009 12:00 AM Depo-Medrol 120 Mg Im/[facility]# [id number] Reviewed 04/30/2009 12:00 AM THER/PROPH/DIAG INJ SC/IM Reviewed 04/30/2009 12:00 AM Depo-Medrol 120 Mg Im/[facility]# [id number] Reviewed Results Summary Date and Description Results [...] Back Pain Feb 2009 8:28AM Anxiety Disorder Feb 2009 8:28AM Depressive Disorder Feb 2009 8:28AM Drug Abuse Feb 2009 8:28AM Pain in joint; Hip Feb 2009 8:28AM Pain in joint; Hip Aug [...] skin Sep 2016 9:05AM Lipoma of buttock Jan 06 2017 9:05AM Abscessed tooth Jan 14 2017 11:05AM [...] 7:54AM Periodontitis b 2018 8:59AM Chronic cough May 26 2018 8:59AM Nausea b 2018 8:59AM Mouth pain May 26 2018 8:59AM Periodontal Disease May 26 2018 8:59AM Tooth caries May 26 2018 8:59AM Payers Insurance Name Company Name Plan Name Plan Number Policy Number Policy Group Number Start Date [facility] Comm Plan of [id number] N/A [facility] Comm [id number] N/A [place] Medical Assistance [facility] Medical Assistance Prog [id number] N/A History of Encounters Visit Date Visit Type Provider 05/26/2018 Office visit YVES JACQUES 04/15/2018 Office visit YVES JACQUES 02/22/2018 Office visit YVES JACQUES 02/03/2018 Office visit YVES JACQUES 12/24/2017 Voided Song Wright DO 12/24/2017 Hospital Song Tonnyuman DO 12/23/2017 Office visit YVES JACQUES 11/25/2017 Office visit YVES JACQUES 09/21/2017 Office visit YVES JACQUES 07/09/2017 Office visit YVES JACQUES 06/09/2017 Office visit YVES JACQUES 05/25/2017 Office visit YVES JACQUES 04/29/2017 Office visit YVES JACQUES 04/02/2017 Office visit YVES JACQUES 03/23/2017 Office visit YVES JACQUES 03/17/2017 Surgery Song Bouman DO 03/09/2017 Office visit Reggie Azar IMAGING ADMINISTRATOR 02/26/2017 Hospital Song Bouman DO 02/04/2017 Office visit Reggie Azar IMAGING ADMINISTRATOR 02/04/2017 [place] Stacy MD 02/03/2017 Procedures Song Tonnybeni DO 01/23/2017 Office visit Reggie Azar IMAGING ADMINISTRATOR 01/14/2017 Office visit Reggie Azar IMAGING ADMINISTRATOR 01/06/2017 Office visit Reggie Azar IMAGING ADMINISTRATOR 12/23/2016 Office visit Reggie Azar IMAGING ADMINISTRATOR 11/25/2016 Nurse visit Reggie Azar IMAGING ADMINISTRATOR 09/30/2016 Office visit Reggie Azar IMAGING ADMINISTRATOR 09/17/2016 Office visit Reggie Azar IMAGING ADMINISTRATOR 09/02/2016 Office visit Reggie Azar IMAGING ADMINISTRATOR 08/19/2016 Office visit Reggie Azar IMAGING ADMINISTRATOR 08/05/2016 Office visit Reggie Azar IMAGING ADMINISTRATOR 11/13/2015 [place] Stacy MD 01/27/2014 Surgery Song Bouman DO 01/03/2014 Hospital Song [place] DO 01/03/2014 [place] Stacy MD 01/02/2014 [facility] 08/27/2009 Office visit Gabe Lombardo DO 08/02/2009 Nurse visit Gabe Lombardo DO 05/28/2009 Office visit Gabe Lombardo DO 04/30/2009 Nurse visit Gabe Lombardo DO 01/10/2009 Office visit Gabe Lombardo DO
--- OUTSIDE RECORDS SUMMARY | 2018-09-02 09:12 | XMS REPORT ---
Author Author YVES CHRISTIE [facility] Address [address] [place], [place] [address] Care Team Providers Care Salesforce Administrator Name Role Phone YVES CHRISTIE PCP [...] route every 4- 6 hours as needed [place] 10-325 mg oral tablet 05/21/2017 06/20/2017 take [...] 24hr 10/16/2009 08/05/2016 TAKE ONE CAPSULE DAILY [place] 10-325 mg oral tablet 08/05/2016 take 1 [...] times per day as needed for cough Problem List Description Status Onset Ventral hernia [...] HC BMI BSA BMI Percentile O2 Sat(%) 04/15/2018 8:11:00 AM 116 mmHg 70 mmHg [...] Status 05/28/2009 12:00 AM Depo-Medrol 120 Mg /[facility]# [id number] Reviewed 08/05/2016 12:00 AM DESTRUCT PREMALG LESION [...] Reviewed 05/25/2017 12:00 AM Decadron 8mg Injection, [facility] Medicare Reviewed 06/09/2017 12:00 AM Decadron 8mg Injection, [facility] Medicare Reviewed 06/09/2017 12:00 AM Toradol 60 Mg Injection, [facility] Medicare Reviewed 06/09/2017 12:00 AM THERAPEUTIC PROPHYLACTIC/DX INJECTION SUBQ/IM Reviewed 08/02/2009 12:00 AM THER/PROPH/DIAG INJ SC/IM Reviewed 08/02/2009 12:00 AM Depo-Medrol 120 Mg [facility] [id number]~[place] Reviewed 09/21/2017 12:00 AM Decadron 8mg Injection, [facility] Medicaid Reviewed 09/21/2017 12:00 AM Depo-Medrol 80 Mg Injection, [facility] Medicaid Reviewed 09/21/2017 12:00 AM THERAPEUTIC PROPHYLACTIC/DX INJECTION SUBQ/IM Reviewed 11/25/2017 12:00 AM THERAPEUTIC PROPHYLACTIC/DX INJECTION SUBQ/IM Reviewed 11/25/2017 12:00 AM Decadron 8mg Injection, [facility] Medicaid Reviewed 11/25/2017 12:00 AM Depo-Medrol 80 Mg Injection, [facility] Medicaid Reviewed 12/23/2017 12:00 AM THERAPEUTIC PROPHYLACTIC/DX INJECTION SUBQ/IM Reviewed 12/23/2017 12:00 AM Decadron 8mg Injection, [facility] Medicaid Reviewed 12/23/2017 12:00 AM Phenergan 50mg Injection, [facility] Medicaid Reviewed 02/22/2018 12:00 AM THERAPEUTIC PROPHYLACTIC/DX INJECTION SUBQ/IM Reviewed 02/22/2018 12:00 AM Toradol 60 Mg Injection, [facility] Medicaid Reviewed 04/15/2018 12:00 AM THERAPEUTIC PROPHYLACTIC/DX INJECTION SUBQ/IM Reviewed 04/15/2018 12:00 AM Decadron 8mg Injection, [facility] Medicaid Reviewed 04/15/2018 12:00 AM Depo-Medrol 80mg Injection, [facility] Medicare Reviewed 08/27/2009 12:00 AM OSTEOPATH MANJ 1-2 REGIONS Reviewed 08/27/2009 12:00 AM Depo-Medrol 120 Mg [facility] [id number]~[place] Reviewed 08/27/2009 12:00 AM OSTEOPATH MANJ 1-2 REGIONS Reviewed 08/27/2009 12:00 AM Depo-Medrol 120 Mg Im/[facility]# [id number] Reviewed 08/27/2009 12:00 AM OSTEOPATH MANJ 1-2 REGIONS Reviewed 08/27/2009 12:00 AM [facility]Med[facility] [id number] Reviewed 04/30/2009 12:00 AM THER/PROPH/DIAG INJ SC/IM Reviewed 04/30/2009 12:00 AM Depo-Medrol 120 Mg Im/[facility]# [id number] Reviewed Results Summary Date and Description Results [...] 2018 7:54AM Hyperlipemia May 26 2018 7:54AM Payers Insurance Name Company Name Plan Name Plan Number Policy Number Policy Group Number Start Date [facility] Comm Plan of [id number] N/A [facility] Comm [id number] N/A [place] Medical Assistance Program [place] Medical [place] Prog [id number] N/A History of Encounters Visit Date Visit Type Provider 04/15/2018 Office visit YVES JACQUES 02/22/2018 Office visit YVES JACQUES 02/03/2018 Office visit YVES JACQUES 12/24/2017 Voided Song Bouman DO 12/24/2017 Hospital Song Bouman DO 12/23/2017 Office visit YVES JACQUES 11/25/2017 Office visit YVES JACQUES 09/21/2017 Office visit YVES JACQUES 07/09/2017 Office visit YVES JACQUES 06/09/2017 Office visit YVES JACQUES 05/25/2017 Office visit YVES JACQUES 04/29/2017 Office visit YVES JACQUES 04/02/2017 Office visit YVES JACQUES 03/23/2017 Office visit YVES JACQUES 03/17/2017 Surgery Song Wright DO 03/09/2017 Office visit Reggie Azar REGISTERED MEDICAL TRANSCRIPTIONIST 02/26/2017 [facility] Song Wright DO 02/04/2017 Office visit Reggie Azar REGISTERED MEDICAL TRANSCRIPTIONIST 02/04/2017 [facility] Jun Stacy MD 02/03/2017 Procedures Song Wright DO 01/23/2017 Office visit Reggie Azar REGISTERED MEDICAL TRANSCRIPTIONIST 01/14/2017 Office visit Reggie Charltonle REGISTERED MEDICAL TRANSCRIPTIONIST 01/06/2017 Office visit Reggie Charltonle REGISTERED MEDICAL TRANSCRIPTIONIST 12/23/2016 Office visit Reggieelizabeth Charltonle REGISTERED MEDICAL TRANSCRIPTIONIST 11/25/2016 Nurse visit Reggie Azar REGISTERED MEDICAL TRANSCRIPTIONIST 09/30/2016 Office visit Reggie Charltonle REGISTERED MEDICAL TRANSCRIPTIONIST 09/17/2016 Office visit Reggie Charltonle REGISTERED MEDICAL TRANSCRIPTIONIST 09/02/2016 Office visit Reggie Azar REGISTERED MEDICAL TRANSCRIPTIONIST 08/19/2016 Office visit Reggie Azar REGISTERED MEDICAL TRANSCRIPTIONIST 08/05/2016 Office visit Reggie Azar REGISTERED MEDICAL TRANSCRIPTIONIST 11/13/2015 [facility] Jun Stacy MD 01/27/2014 Surgery Song Wright DO 01/03/2014 [facility] Song Wright DO 01/03/2014 [facility] Jun Stacy MD 01/02/2014 [facility] Song Tonnybeni DO 08/27/2009 Office visit Gabe Boydr DO 08/02/2009 Nurse visit Gabe Boydr DO 05/28/2009 Office visit Gabe Boydr DO 04/30/2009 Nurse visit Gabe Boydr DO 01/10/2009 Office visit Gabe Scruggs Munira DO
--- OUTSIDE RECORDS SUMMARY | 2018-09-02 09:13 | XMS REPORT ---
Author Author YVES CHRISTIE [facility] Address [address] [place], [place] [address] Care Team Providers Care Wet Process Technician Name Role Phone YVES CHRISTIE PCP YVES CHRISTIE PreferredProvider Allergies and Adverse Reactions Name Reaction Notes Keflex anaphylaxis Plan of Treatment Planned Activity Comments Planned Date Planned Time Plan/Goal XR acute abdomen series 07/09/2017 12:00 AM Hip X-ray: AP / Lat 07/09/2017 12:00 AM Injection,Subcutaneous/Intramuscul, [facility] Medicaid 04/15/2018 12:00 AM chronic hip and neck pain [...] mg ) by oral route once daily lisinopril 10 mg oral tablet 02/24/2018 TAKE ONE TABLET BY MOUTH EVERY MORNING simvastatin 40 mg oral tablet 03/03/2018 TAKE [...] TAKE ONE TABLET BY MOUTH EVERY MORNING Cipro 500 mg oral tablet 04/15/2018 04/25/2018 take 1 tablet (500 mg) by oral route 2 times per day for 10 days prednisone 20 mg oral tablet 04/15/2018 04/27/2018 2X4 days 1X4 days 12X4 days Name Start Date Expiration Date SIG Comments [...] route every 4- 6 hours as needed [place] 10-325 mg oral tablet 05/21/2017 06/20/2017 take [...] oral route once daily for 4 days Discontinued Name Start Date Discontinued Date [...] 24hr 10/16/2009 08/05/2016 TAKE ONE CAPSULE DAILY [place] 10-325 mg oral tablet 08/05/2016 take 1 [...] Status 05/28/2009 12:00 AM Depo-Medrol 120 Mg /[facility]# [id number] Reviewed 08/05/2016 12:00 AM DESTRUCT PREMALG LESION [...] Reviewed 05/25/2017 12:00 AM Decadron 8mg Injection, [facility] Medicare Reviewed 06/09/2017 12:00 AM Decadron 8mg Injection, [facility] Medicare Reviewed 06/09/2017 12:00 AM Toradol 60 Mg Injection, [facility] Medicare Reviewed 06/09/2017 12:00 AM THERAPEUTIC PROPHYLACTIC/DX INJECTION SUBQ/IM Reviewed 08/02/2009 12:00 AM THER/PROPH/DIAG INJ SC/IM Reviewed 08/02/2009 12:00 AM Depo-Medrol 120 Mg [facility] [id number]~[place] Reviewed 09/21/2017 12:00 AM Decadron 8mg Injection, [facility] Medicaid Reviewed 09/21/2017 12:00 AM Depo-Medrol 80 Mg Injection, [facility] Medicaid Reviewed 09/21/2017 12:00 AM THERAPEUTIC PROPHYLACTIC/DX INJECTION SUBQ/IM Reviewed 11/25/2017 12:00 AM THERAPEUTIC PROPHYLACTIC/DX INJECTION SUBQ/IM Reviewed 11/25/2017 12:00 AM Decadron 8mg Injection, [facility] Medicaid Reviewed 11/25/2017 12:00 AM Depo-Medrol 80 Mg Injection, [facility] Medicaid Reviewed 12/23/2017 12:00 AM THERAPEUTIC PROPHYLACTIC/DX INJECTION SUBQ/IM Reviewed 12/23/2017 12:00 AM Decadron 8mg Injection, [facility] Medicaid Reviewed 12/23/2017 12:00 AM Phenergan 50mg Injection, [facility] Medicaid Reviewed 02/22/2018 12:00 AM THERAPEUTIC PROPHYLACTIC/DX INJECTION SUBQ/IM Reviewed 02/22/2018 12:00 AM Toradol 60 Mg Injection, [facility] Medicaid Reviewed 08/27/2009 12:00 AM OSTEOPATH MANJ 1-2 REGIONS Reviewed 08/27/2009 12:00 AM Depo-Medrol 120 Mg [facility] [id number]~[place] Reviewed 08/27/2009 12:00 AM OSTEOPATH MANJ 1-2 REGIONS Reviewed 08/27/2009 12:00 AM Depo-Medrol 120 Mg Im/[facility]# [id number] Reviewed 08/27/2009 12:00 AM OSTEOPATH MANJ 1-2 REGIONS Reviewed 08/27/2009 12:00 AM Depo-Medrol 120 Mg Im/[facility]# [id number] Reviewed 04/30/2009 12:00 AM THER/PROPH/DIAG INJ SC/IM Reviewed 04/30/2009 12:00 AM Depo-Medrol 120 Mg /[facility]# [id number] Reviewed Results Summary Date and Description Results [...] infection, unspecified type Apr 15 2018 8:13AM Payers Insurance Name Company Name Plan Name Plan Number Policy Number Policy Group Number Start Date [facility] Comm Plan of [id number] N/A [facility] Comm [id number] N/A [employer] Assistance [facility] Medical Assistance Prog [id number] N/A History of Encounters Visit Date Visit Type Provider 04/15/2018 Office visit YVES JACQUES 02/22/2018 Office visit YVES JACQUES 02/03/2018 Office visit YVES JACQUES 12/24/2017 Voided Song Kyle DO 12/24/2017 [facility] Song Wright DO 12/23/2017 Office visit [...] Azar NP 11/25/2016 Nurse visit Reggie Azar NP 09/30/2016 Office visit Reggie Azar [employer] 09/17/2016 Office visit Reggie Azar [employer]RI[employer] T[employer] F[employer]ER 09/02/2016 Office visit Reggie Azar CHRISTMAS TREE F[employer]ER 08/19/2016 Office visit Reggie Azar CHRISTMAS TREE FARMER 08/05/2016 Office visit Reggie Azar CHRISTMAS TREE FARMER 11/13/2015 [facility] Jun Stacy MD 01/27/2014 Surgery [facility] DO 01/03/2014 Hospital [facility] DO 01/03/2014 [facility] Jun Stacy MD 01/02/2014 [facility] DO 08/27/2009 Office visit Gabe Lombardo DO 08/02/2009 Nurse visit Gabe Lombardo DO 05/28/2009 Office visit Gabe Lombardo DO 04/30/2009 Nurse visit Gabe Lombardo DO 01/10/2009 Office visit Gabe Lombardo DO
--- OUTSIDE RECORDS SUMMARY | 2018-09-02 09:14 | XMS REPORT ---
Author Author YVES CHRISTIE [facility] Address [address] [place], [place] [id number] Care Team Providers Care Clinical Research Nurse Name Role Phone YVES CHRISTIE PCP YVES CHRISTIE PreferredProvider Allergies and Adverse Reactions Name Reaction Notes Keflex anaphylaxis Plan of Treatment Planned Activity Comments Planned Date Planned Time Plan/Goal XR acute abdomen series 07/09/2017 12:00 AM Hip X-ray: AP / Lat 07/09/2017 12:00 AM chronic hip and neck pain [...] (10 mg) by oral route once daily Effexor XR 150 mg oral capsule,extended release 24hr 10/19/2017 take 1 capsule (150 mg) by oral route once daily with food for 30 days amitriptyline 150 mg oral tablet 11/02/2017 take 1 tablet (150 mg) by oral route once daily at bedtime for 30 days simvastatin 40 mg oral tablet 12/28/2017 TAKE ONE TABLET BY MOUTH AT BEDTIME Carafate 1 gram oral tablet take 1 tablet (1 gram) by oral route 4 times per day on an empty stomach 1 hour before meals and at bedtime Protonix 40 mg oral tablet,delayed release (DR/EC) take 1 tablet (40 mg ) by oral route once daily omeprazole 40 mg oral capsule,delayed release(DR/EC) 02/01/2018 TAKE ONE CAPSULE BY MOUTH EVERY MORNING aspirin 325 mg oral tablet,delayed release (DR/EC) 02/01/2018 TAKE ONE TABLET BY MOUTH EVERY MORNING famotidine 40 mg oral tablet 02/01/2018 TAKE ONE TABLET BY MOUTH TWICE DAILY ferrous sulfate 325 mg (65 mg iron) oral tablet 02/01/2018 TAKE ONE TABLET BY MOUTH EVERY MORNING Tylenol-Codeine #3 300-30 mg oral tablet 02/23/2018 03/25/2018 take 2 tablets by oral route every 6 hours as needed for 30 days Name Start Date Expiration Date SIG [...] route every 4- 6 hours as needed [place] 10-325 mg oral tablet 05/21/2017 06/20/2017 take [...] (15 mg) by oral route once daily Discontinued Name Start Date Discontinued Date SIG [...] 24hr 10/16/2009 08/05/2016 TAKE ONE CAPSULE DAILY [place] 10-325 mg oral tablet 08/05/2016 take 1 [...] 11/26/2017 TAKE ONE TABLET BY MOUTH DAILY gabapentin 100 mg oral capsule 11/26/2017 11/26/2017 TAKE ONE CAPSULE BY MOUTH THREE TIMES DAILY Problem List Description Status Onset Ventral hernia [...] HC BMI BSA BMI Percentile O2 Sat(%) 02/22/2018 10:36:00 AM 116 mmHg 72 mmHg 102 bpm 18 rpm 98.1 F 154 lbs 64 in 26.4338 kg/m 1.776 m 98 % 02/03/2018 1:25:00 PM [...] Status 05/28/2009 12:00 AM Depo-Medrol 120 Mg Im/[facility]# [id number] Reviewed 08/05/2016 12:00 AM DESTRUCT PREMALG LESION [...] Reviewed 05/25/2017 12:00 AM Decadron 8mg Injection, [facility] Medicare Reviewed 06/09/2017 12:00 AM Decadron 8mg Injection, [facility] Medicare Reviewed 06/09/2017 12:00 AM Toradol 60 Mg Injection, [facility] Medicare Reviewed 06/09/2017 12:00 AM THERAPEUTIC PROPHYLACTIC/DX INJECTION SUBQ/IM Reviewed 08/02/2009 12:00 AM THER/PROPH/DIAG INJ SC/IM Reviewed 08/02/2009 12:00 AM Depo-Medrol 120 Mg [facility] [id number]~[place] Reviewed 09/21/2017 12:00 AM Decadron 8mg Injection, [facility] Medicaid Reviewed 09/21/2017 12:00 AM Depo-Medrol 80 Mg Injection, [facility] Medicaid Reviewed 09/21/2017 12:00 AM THERAPEUTIC PROPHYLACTIC/DX INJECTION SUBQ/IM Reviewed 11/25/2017 12:00 AM THERAPEUTIC PROPHYLACTIC/DX INJECTION SUBQ/IM Reviewed 11/25/2017 12:00 AM Decadron 8mg Injection, [facility] Medicaid Reviewed 11/25/2017 12:00 AM Depo-Medrol 80 Mg Injection, [facility] Medicaid Reviewed 12/23/2017 12:00 AM THERAPEUTIC PROPHYLACTIC/DX INJECTION SUBQ/IM Reviewed 12/23/2017 12:00 AM Decadron 8mg Injection, [facility] Medicaid Reviewed 12/23/2017 12:00 AM Phenergan 50mg Injection, [facility] Medicaid Reviewed 02/22/2018 12:00 AM THERAPEUTIC PROPHYLACTIC/DX INJECTION SUBQ/IM Reviewed 02/22/2018 12:00 AM Toradol 60 Mg Injection, [facility] Medicaid Reviewed 08/27/2009 12:00 AM OSTEOPATH MANJ 1-2 REGIONS Reviewed 08/27/2009 12:00 AM Depo-Medrol 120 Mg [facility] [id number]~[place] Reviewed 08/27/2009 12:00 AM OSTEOPATH MANJ 1-2 REGIONS Reviewed 08/27/2009 12:00 AM Depo-Medrol 120 Mg Im/[facility]# [id number] Reviewed 08/27/2009 12:00 AM OSTEOPATH MANJ 1-2 REGIONS Reviewed 08/27/2009 12:00 AM Depo-Medrol 120 Mg Im/[facility]# [id number] Reviewed 04/30/2009 12:00 AM THER/PROPH/DIAG INJ SC/IM Reviewed 04/30/2009 12:00 AM Depo-Medrol 120 Mg Im/[facility]# [id number] Reviewed Results Summary Date and Description Results [...] 10:36AM Infected tooth Feb 22 2018 10:36AM Payers Insurance Name Company Name Plan Name Plan Number Policy Number Policy Group Number Start Date [facility] Comm Plan of [id number] N/A [facility] - Community [facility] Comm [id number] N/A [place] Medical [place] Prog [id number] N/A History of Encounters Visit Date Visit Type Provider 02/22/2018 Office visit YVES JACQUES 02/03/2018 Office [...] Wright DO 03/09/2017 Office visit Reggie Azar INTELLIGENCE ENGINEER [facility] 02/04/2017 Office visit Reggie Azar INTELLIGENCE ENGINEER 02/04/2017 [facility] Jun Stacy MD 02/03/2017 [facility] Song Wright DO 01/23/2017 Office visit Reggie Azar INTELLIGENCE ENGINEER 01/14/2017 Office visit Reggie Azar INTELLIGENCE ENGINEER 01/06/2017 Office visit Reggie Azar INTELLIGENCE ENGINEER 12/23/2016 Office visit Reggie Azar INTELLIGENCE ENGINEER 11/25/2016 Nurse visit Reggie Azar INTELLIGENCE ENGINEER 09/30/2016 Office visit Reggie Azar INTELLIGENCE ENGINEER 09/17/2016 Office visit Reggie Azar INTELLIGENCE ENGINEER 09/02/2016 Office visit Reggie Azar INTELLIGENCE ENGINEER 08/19/2016 Office visit Reggie Azar INTELLIGENCE ENGINEER 08/05/2016 Office visit Reggie Azar INTELLIGENCE ENGINEER 11/13/2015 [facility] Jun Stacy MD 01/27/2014 Surgery Song Wright DO 01/03/2014 [facility] DO 01/03/2014 [facility] Jun Stacy MD 01/02/2014 [facility] DO 08/27/2009 Office visit Gabe VAnisha Munira DO 08/02/2009 Nurse visit Gabe VAnisha Munira DO 05/28/2009 Office visit Gabe V. Munira DO 04/30/2009 Nurse visit Gabe V. Munira DO 01/10/2009 Office visit Gabe V. Munira DO
--- OUTSIDE RECORDS SUMMARY | 2018-09-02 09:16 | XMS REPORT ---
Author Author YVES CHRISTIE [facility] Address [address] [place], [place] [id number] Care Team Providers Care Livestock Counter Name Role Phone YVES CHRISTIE PCP YVES [...] route every 4- 6 hours as needed [place] 10-325 mg oral tablet 05/21/2017 06/20/2017 take [...] 24hr 10/16/2009 08/05/2016 TAKE ONE CAPSULE DAILY [place] 10-325 mg oral tablet 08/05/2016 take 1 [...] HC BMI BSA BMI Percentile O2 Sat(%) 02/03/2018 1:25:00 PM 108 mmHg 80 mmHg [...] 12:00 AM Depo-Medrol 120 Mg [facility]# [id number] Reviewed 08/05/2016 12:00 AM DESTRUCT PREMALG LESION [...] Reviewed 05/25/2017 12:00 AM Decadron 8mg Injection, [facility] Medicare Reviewed 06/09/2017 12:00 AM Decadron 8mg Injection, [facility] Medicare Reviewed 06/09/2017 12:00 AM Toradol 60 Mg Injection, [facility] Medicare Reviewed 06/09/2017 12:00 AM THERAPEUTIC PROPHYLACTIC/DX INJECTION SUBQ/IM Reviewed 08/02/2009 12:00 AM THER/PROPH/DIAG INJ SC/IM Reviewed 08/02/2009 12:00 AM Depo-Medrol 120 Mg [facility] [id number]~[place]unira Reviewed 09/21/2017 12:00 AM Decadron 8mg Injection, [facility] Medicaid Reviewed 09/21/2017 12:00 AM Depo-Medrol 80 Mg Injection, [facility] Medicaid Reviewed 09/21/2017 12:00 AM THERAPEUTIC PROPHYLACTIC/DX INJECTION SUBQ/IM Reviewed 11/25/2017 12:00 AM THERAPEUTIC PROPHYLACTIC/DX INJECTION SUBQ/IM Reviewed 11/25/2017 12:00 AM Decadron 8mg Injection, [facility] Medicaid Reviewed 11/25/2017 12:00 AM Depo-Medrol 80 Mg Injection, [facility] Medicaid Reviewed 12/23/2017 12:00 AM THERAPEUTIC PROPHYLACTIC/DX INJECTION SUBQ/IM Reviewed 12/23/2017 12:00 AM Decadron 8mg Injection, [facility] Medicaid Reviewed 12/23/2017 12:00 AM Phenergan 50mg Injection, [facility] Medicaid Reviewed 08/27/2009 12:00 AM OSTEOPATH MANJ 1-2 REGIONS Reviewed 08/27/2009 12:00 AM Depo-Medrol 120 Mg [facility] [id number]~[place] Reviewed 08/27/2009 12:00 AM OSTEOPATH MANJ 1-2 REGIONS Reviewed 08/27/2009 12:00 AM Depo-Medrol 120 Mg Im/[facility]# [id number] Reviewed 08/27/2009 12:00 AM OSTEOPATH MANJ 1-2 REGIONS Reviewed 08/27/2009 12:00 AM Depo-Medrol 120 Mg Im/[facility]# [id number] Reviewed 04/30/2009 12:00 AM THER/PROPH/DIAG INJ SC/IM Reviewed 04/30/2009 12:00 AM Depo-Medrol 120 Mg Im/[facility]# [id number] Reviewed Results Summary Date and Description Results [...] 1:26PM Medication management Feb 03 2018 1:26PM Payers Insurance Name Company Name Plan Name Plan Number Policy Number Policy Group Number Start Date [facility] Comm Plan of [id number] N/A [facility] Community [facility] Comm [id number] N/A [place] Medical Assistance [facility] Medical Assistance Prog [id number] N/A History of Encounters Visit Date Visit Type Provider 02/03/2018 Office visit YVES JACQUES 12/24/2017 Voided Song Wright DO 12/24/2017 [facility] 12/23/2017 Office visit YVES JACQUES 11/25/2017 Office visit YVES JACQUES 09/21/2017 Office visit YVES JACQUES 07/09/2017 Office visit YVES JACQUES 06/09/2017 Office visit YVES JACQUES 05/25/2017 Office visit YVES JACQUES 04/29/2017 Office visit YVES JACQUES 04/02/2017 Office visit YVES JACQUES 03/23/2017 Office visit YVES JACQUES 03/17/2017 Surgery Song Wright DO 03/09/2017 Office visit Reggie Azar NP 02/26/2017 [facility] Song Wright DO 02/04/2017 Office visit Reggie Azar CERTIFIED PHLEBOTOMY TECHNICIAN 02/04/2017 [facility] Jun Stacy MD 02/03/2017 Procedures Song Wright DO 01/23/2017 Office visit Reggie Azar CERTIFIED PHLEBOTOMY TECHNICIAN 01/14/2017 Office visit Reggie Azar CERTIFIED PHLEBOTOMY TECHNICIAN 01/06/2017 Office visit Reggie Azar CERTIFIED PHLEBOTOMY TECHNICIAN 12/23/2016 Office visit Reggie Azar CERTIFIED PHLEBOTOMY TECHNICIAN 11/25/2016 Nurse visit Reggie Azar CERTIFIED PHLEBOTOMY TECHNICIAN 09/30/2016 Office visit Reggie Azar CERTIFIED PHLEBOTOMY TECHNICIAN 09/17/2016 Office visit Reggie Charltonle CERTIFIED PHLEBOTOMY TECHNICIAN 09/02/2016 Office visit Reggie Azar CERTIFIED PHLEBOTOMY TECHNICIAN 08/19/2016 Office visit Reggie Azar CERTIFIED PHLEBOTOMY TECHNICIAN 08/05/2016 Office visit Reggie Azar CERTIFIED PHLEBOTOMY TECHNICIAN 11/13/2015 [facility] Jun Stacy MD 01/27/2014 Surgery Song Wright DO 01/03/2014 [facility] 01/03/2014 [facility] Jun Stacy MD 01/02/[address] [facility] 08/27/2009 Office visit Gabe Lombardo DO 08/02/2009 Nurse visit Gabe Boydr DO 05/28/2009 Office visit Gabe Boydr DO 04/30/2009 Nurse visit Gabe Boydr DO 01/10/2009 Office visit Gabe Boydr DO
--- OUTSIDE RECORDS SUMMARY | 2018-09-02 09:17 | XMS REPORT ---
Author Song Jamil [facility] Address [address] [place], [place] [address] Care Team Providers Care Residential Roofer Helper Name Role Phone Song Wright PCP YVES [...] (10 mg) by oral route once daily Aspirin Low Dose 81 mg oral tablet,delayed release (DR/EC) 09/17/2017 take 1 tablet (81 mg) by oral route once daily for 30 days Klonopin 1 mg oral tablet 10/19/2017 take 1 tablet (1 mg) by oral route 2 times per day Effexor XR 150 mg oral capsule,extended release 24hr 10/19/2017 take 1 capsule (150 mg) by oral route once daily with food for 30 days amitriptyline 150 mg oral tablet 11/02/2017 take 1 tablet (150 mg) by oral route once daily at bedtime for 30 days hydrocodone-ibuprofen 7.5-200 mg oral tablet 11/03/2017 take 1 tablet by oral route every 6 hours as needed for pain not to exceed 5 tablets in 24hrs for 30 days meloxicam 15 mg oral tablet 11/26/2017 take 1 tablet (15 mg) by oral route once daily Name Start Date Expiration Date SIG Comments [...] route every 4- 6 hours as needed [place] 10-325 mg oral tablet 05/21/2017 06/20/2017 take [...] 5 tablets in 24hrs for 30 days Discontinued Name Start Date Discontinued Date [...] 24hr 10/16/2009 08/05/2016 TAKE ONE CAPSULE DAILY [place] 10-325 mg oral tablet 08/05/2016 take 1 [...] 12/16/2017 Pain management contract broken Active 12/27/2017 Vital Signs Date Time BP-Sys(mm[Hg] BP-[place]il[place](mm[Hg]) HR(bpm) RR(rpm) Temp WT HT HC BMI BSA BMI Percentile O2 Sat(%) 12/23/2017 10:27:00 AM 122 mmHg 70 mmHg [...] rpm 97.4 F 151 lbs 62 in 27.618 kg/m 1.73 m2 98 % 06/09/2017 2:49:00 PM [...] Status 05/28/2009 12:00 AM Depo-Medrol 120 Mg /[facility]# [id number] Reviewed 08/05/2016 12:00 AM DESTRUCT PREMALG LESION [...] Reviewed 05/25/2017 12:00 AM Decadron 8mg Injection, [facility] Medicare Reviewed 06/09/2017 12:00 AM Decadron 8mg Injection, [facility] Medicare Reviewed 06/09/2017 12:00 AM Toradol 60 Mg Injection, [facility] Medicare Reviewed 06/09/2017 12:00 AM THERAPEUTIC PROPHYLACTIC/DX INJECTION SUBQ/IM Reviewed 08/02/2009 12:00 AM THER/PROPH/DIAG INJ SC/IM Reviewed 08/02/2009 12:00 AM Depo-Medrol 120 Mg [facility] [id number]~[place] Reviewed 09/21/2017 12:00 AM Decadron 8mg Injection, [facility] Medicaid Reviewed 09/21/2017 12:00 AM Depo-Medrol 80 Mg Injection, [facility] Medicaid Reviewed 09/21/2017 12:00 AM THERAPEUTIC PROPHYLACTIC/DX INJECTION SUBQ/IM Reviewed 11/25/2017 12:00 AM THERAPEUTIC PROPHYLACTIC/DX INJECTION SUBQ/IM Reviewed 11/25/2017 12:00 AM Decadron 8mg Injection, [facility] Medicaid Reviewed 11/25/2017 12:00 AM Depo-Medrol 80 Mg Injection, [facility] Medicaid Reviewed 12/23/2017 12:00 AM THERAPEUTIC PROPHYLACTIC/DX INJECTION SUBQ/IM Reviewed 12/23/2017 12:00 AM Decadron 8mg Injection, [facility] Medicaid Reviewed 12/23/2017 12:00 AM Phenergan 50mg Injection, [facility] Medicaid Reviewed 08/27/2009 12:00 AM OSTEOPATH MANJ 1-2 REGIONS Reviewed 08/27/2009 12:00 AM Depo-Medrol 120 Mg [facility] [id number]~[place] Reviewed 08/27/2009 12:00 AM OSTEOPATH MANJ 1-2 REGIONS Reviewed 08/27/2009 12:00 AM Depo-Medrol 120 Mg Im/[facility]# [id number] Reviewed 08/27/2009 12:00 AM OSTEOPATH MANJ 1-2 REGIONS Reviewed 08/27/2009 12:00 AM Depo-Medrol 120 Mg Im/[facility]# [id number] Reviewed 04/30/2009 12:00 AM THER/PROPH/DIAG INJ SC/IM Reviewed 04/30/2009 12:00 AM Depo-Medrol 120 Mg Im/[facility]# [id number] Reviewed Results Summary Date and Description Results [...] attempt 12/16/2017 Pain management contract broken 12/27/2017 Plantar wart of right foot Aug 05 [...] management contract broken Dec 23 2017 10:28AM Payers Insurance Name Company Name Plan Name Plan Number Policy Number Policy Group Number Start Date [facility] Comm Plan of [id number] N/A [facility] - Community [facility] Comm [id number] N/A [place] Medical Assistance Program [place] Medical Assistance Prog [id number] N/A History of Encounters Visit Date Visit Type Provider 12/24/2017 Voided Song Wright DO 12/24/2017 Hospital [...] Wright DO 03/09/2017 Office visit Reggie Azar BUCKRAM SEWER 02/26/2017 [facility] Song Wright DO 02/04/2017 Office visit Reggie Azar BUCKRAM SEWER 02/04/2017 [facility] Jun Stacy MD 02/03/2017 [facility] Song Wright DO 01/23/2017 Office visit Reggie Azar BUCKRAM SEWER 01/14/2017 Office visit Reggie Azar BUCKRAM SEWER 01/06/2017 Office visit Reggie Azar BUCKRAM SEWER 12/23/2016 Office visit Reggie Azar BUCKRAM SEWER 11/25/2016 Nurse visit Reggie Azar BUCKRAM SEWER 09/30/2016 Office visit Reggie Azar BUCKRAM SEWER 09/17/2016 Office visit Reggie Azar BUCKRAM SEWER 09/02/2016 Office visit Reggie Azar BUCKRAM SEWER 08/19/2016 Office visit Reggie Azar BUCKRAM SEWER 08/05/2016 Office visit Reggie Azar BUCKRAM SEWER 11/13/2015 Hospital Jun Stacy MD 01/27/2014 Surgery Song Wright DO 01/03/2014 Hospital Song Wright DO 01/03/2014 [facility] Jun Stacy MD 01/02/2014 [facility] Song Wright DO 08/27/2009 Office visit Gabe Scruggs Munira DO 08/02/2009 Nurse visit Gabe Scruggs Munira DO 05/28/2009 Office visit Gabe VAnisha Munira DO 04/30/2009 Nurse visit Gabe V. Munira DO 01/10/2009 Office visit Gabe V. Munira DO
--- OUTSIDE RECORDS SUMMARY | 2018-09-02 09:18 | XMS REPORT ---
Author Author YVES CHRISTIE [facility] Address [address] [place], [place] [address] Care Team Providers Care Tag Press Operator Name Role Phone YVES CHRISTIE PCP YVES [...] route every 4- 6 hours as needed [place] 10-325 mg oral tablet 05/21/2017 06/20/2017 take [...] 24hr 10/16/2009 08/05/2016 TAKE ONE CAPSULE DAILY [place] 10-325 mg oral tablet 08/05/2016 take 1 [...] 04/2017 History of suicide attempt Active 12/16/2017 Vital Signs Date Time BP-Sys(mm[Hg] BP-[place]il[place](mm[Hg]) HR(bpm) RR(rpm) Temp WT HT HC BMI BSA BMI Percentile O2 Sat(%) 11/25/2017 9:21:00 AM 170 mmHg 94 mmHg 100 bpm 18 rpm 98.7 F 155 lbs 63 in 27.4567 kg/m 1.7678 m 97 % 09/21/2017 9:04:00 AM 114 mmHg 78 mmHg 105 bpm 18 rpm 98.6 F 149 lbs 63 in 26.39 kg/m2 1.73 m2 98 % 07/09/2017 4:13:00 PM 128 mmHg 72 mmHg 74 bpm 18 rpm 97.4 F 151 lbs 62 in 27.618 kg/m 1.7309 m 98 % 06/09/2017 2:49:00 PM 142 mmHg [...] Status 05/28/2009 12:00 AM Depo-Medrol 120 Mg /[facility]# [id number] Reviewed 08/05/2016 12:00 AM DESTRUCT PREMALG LESION [...] Reviewed 05/25/2017 12:00 AM Decadron 8mg Injection, [facility] Medicare Reviewed 06/09/2017 12:00 AM Decadron 8mg Injection, [facility] Medicare Reviewed 06/09/2017 12:00 AM Toradol 60 Mg Injection, [facility] Medicare Reviewed 06/09/2017 12:00 AM THERAPEUTIC PROPHYLACTIC/DX INJECTION SUBQ/IM Reviewed 08/02/2009 12:00 AM THER/PROPH/DIAG INJ SC/IM Reviewed 08/02/2009 12:00 AM Depo-Medrol 120 Mg [facility] [id number]~Munira Reviewed 09/21/2017 12:00 AM Decadron 8mg Injection, [facility] Medicaid Reviewed 09/21/2017 12:00 AM Depo-Medrol 80 Mg Injection, [facility] Medicaid Reviewed 09/21/2017 12:00 AM THERAPEUTIC PROPHYLACTIC/DX INJECTION SUBQ/IM Reviewed 11/25/2017 12:00 AM THERAPEUTIC PROPHYLACTIC/DX INJECTION SUBQ/IM Reviewed 11/25/2017 12:00 AM Decadron 8mg Injection, [facility] Medicaid Reviewed 11/25/2017 12:00 AM Depo-Medrol 80 Mg Injection, [facility] Medicaid Reviewed 08/27/2009 12:00 AM OSTEOPATH MANJ 1-2 REGIONS Reviewed 08/27/2009 12:00 AM Depo-Medrol 120 Mg [facility] [id number]~Munira Reviewed 08/27/2009 12:00 AM OSTEOPATH MANJ 1-2 REGIONS Reviewed 08/27/2009 12:00 AM Depo-Medrol 120 Mg Im/[facility]# [id number] Reviewed 08/27/2009 12:00 AM OSTEOPATH MANJ 1-2 REGIONS Reviewed 08/27/2009 12:00 AM Depo-Medrol 120 Mg Im/[facility]# [id number] Reviewed 04/30/2009 12:00 AM THER/PROPH/DIAG INJ SC/IM Reviewed 04/30/2009 12:00 AM Depo-Medrol 120 Mg Im/[facility]# [address]-76 Reviewed Results Summary Date and Description Results [...] pain hip pain Knee Pain Essential Hypertension Feb 2009 8:28AM Low Back Pain b 2009 8:28AM Anxiety Disorder b 2009 8:28AM [...] medication 10/18/2017 History of suicide attempt 12/16/2017 Plantar wart of right foot Aug 05 [...] Other chronic pain Nov 25 2017 9:22AM Payers Insurance Name Company Name Plan Name Plan Number Policy Number Policy Group Number Start Date [facility] Community [facility] Comm Plan of [id number] N/A [facility] Community [facility] Comm [id number] N/A [place] Medical Assistance [facility] Medical Assistance Prog [id number] N/A History of Encounters Visit Date Visit Type Provider 11/25/2017 Office visit YVES JACQUES 09/21/2017 Office [...] Office visit Reggie Azar NP 02/04/2017 [facility] MD 02/03/2017 Procedures Song Wright DO 01/23/2017 Office visit Reggie Azar SURGICAL SUPERVISOR 01/14/2017 Office visit Reggie Azar SURGICAL SUPERVISOR 01/06/2017 Office visit Reggie Azar SURGICAL SUPERVISOR 12/23/2016 Office visit Reggie Azar SURGICAL SUPERVISOR 11/25/2016 Nurse visit Reggie Azar SURGICAL SUPERVISOR 09/30/2016 Office visit Reggie Azar SURGICAL SUPERVISOR 09/17/2016 Office visit Reggie Azar SURGICAL SUPERVISOR 09/02/2016 Office visit Reggie Azar SURGICAL SUPERVISOR 08/19/2016 Office visit Reggie Azar SURGICAL SUPERVISOR 08/05/2016 Office visit Reggie Azar SURGICAL SUPERVISOR 11/13/2015 Hospital Jun Stacy MD 01/27/2014 Surgery [facility] DO 01/03/2014 Hospital [facility] DO 01/03/2014 [facility] Jun Stacy MD 01/02/2014 [facility] DO 08/27/2009 Office visit Gabe Lombardo DO 08/02/2009 Nurse visit Gabe Lombardo DO 05/28/2009 Office visit Gabe Lombardo DO 04/30/2009 Nurse visit Gabe Lombardo DO 01/10/2009 Office visit Gabe Lombardo DO
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
--- OUTSIDE RECORDS SUMMARY | 2018-09-02 09:19 | XMS REPORT ---
Author Author Reggie Azar [facility] Address [address] [place], [place] [id number] Care Team Providers Care Coordinator Of Online Programs Name Role Phone Reggie Azar PCP Unavailable Allergies and Adverse Reactions Name Reaction Notes Keflex PENICILLINS Plan of Treatment Not available. Medications Active Name Start Date Estimated Completion Date SIG Comments hydrocodone-acetaminophen 5-325 mg oral tablet 08/05/2016 take 1 tablet by oral route every 6 hours as needed for pain Name Start Date Expiration Date SIG Comments [...] 1 TABLET BY MOUTH THREE TIMES DAILY Discontinued Name Start Date Discontinued Date SIG [...] 24hr 10/16/2009 08/05/2016 TAKE ONE CAPSULE DAILY [place] 10-325 mg oral tablet 08/05/2016 take 1 tablet by oral route every 6 hours as needed for pain Problem List Not available. Vital Signs Date Time BP-Sys(mm[Hg] BP-[place]il[place](mm[Hg]) HR(bpm) RR(rpm) Temp WT HT HC BMI BSA BMI Percentile O2 Sat(%) 08/05/2016 8:11:00 AM 138 mmHg 78 mmHg [...] Use 08/05/2016 - 1/2 pack daily disabeled History of Procedures Date Ordered Description Order Status 05/28/2009 12:00 AM Depo-Medrol 120 Mg Im/[facility]# [id number] Reviewed 08/02/2009 12:00 AM THER/PROPH/DIAG INJ SC/IM Reviewed 08/02/2009 12:00 AM Depo-Medrol 120 Mg [facility] [id number]~[place] Reviewed 08/27/2009 12:00 AM OSTEOPATH MANJ 1-2 REGIONS Reviewed 08/27/2009 12:00 AM Depo-Medrol 120 Mg [facility] [id number]~[place] Reviewed 08/27/2009 12:00 AM OSTEOPATH MANJ 1-2 REGIONS Reviewed 08/27/2009 12:00 AM Depo-Medrol 120 Mg Im/[facility]# [id number] Reviewed 08/27/2009 12:00 AM OSTEOPATH MANJ 1-2 REGIONS Reviewed 08/27/2009 12:00 AM Depo-Medrol 120 Mg Im/[facility]# [id number] Reviewed 04/30/2009 12:00 AM THER/PROPH/DIAG INJ SC/IM Reviewed 04/30/2009 12:00 AM Depo-Medrol 120 Mg Im/[facility]# [id number] Reviewed Results Summary Not available. History Of Immunizations Not available. History of Past Illness Name Date of Onset Comments Back Pain Apr 30 2009 1:53PM Back Pain cervical neck pain hip pain Knee Pain [...] 2009 6:34AM Hypertension Hyperlipidemia Anxiety Arthritis Depression Plantar wart of right foot Aug 05 2016 8:25AM Plantar wart, right foot Aug 05 2016 10:29AM Payers Insurance Name Company Name Plan Name Plan Number Policy Number Policy Group Number Start Date [facility] Plan of [id number] N/A [place] [facility] Pro [id number] N/A History of Encounters Visit Date Visit Type Provider 08/05/2016 Office visit Reggie Azar NP 11/13/2015 Hospital Jun Stacy MD 01/27/2014 Surgery Song Wright DO 01/03/2014 Hospital Song Wright DO 01/03/2014 Hospital Jun Stacy MD 01/02/2014 Hospital Song Wright DO 08/27/2009 Office visit Gabe Lombardo DO 08/02/2009 Nurse visit Gabe Lombardo DO 05/28/2009 Office visit Gabe Lombardo DO 04/30/2009 Nurse visit Gabe Lombardo DO 01/10/2009 Office visit Gabe Lombardo DO
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
--- OUTSIDE RECORDS SUMMARY | 2018-09-02 09:20 | XMS REPORT ---
Author Author Reggie Azar [facility] Address [address] [place], [place] [address] Care Team Providers Care Web Design Intern Name Role Phone Reggie Azar PCP Unavailable [...] once daily with food for 30 days hydrocodone-acetaminophen 5-325 mg oral tablet 09/17/2016 take 1 tablet by oral route every 6 hours as needed for pain lisinopril 20 mg oral tablet 10/16/2016 01/14/2017 take 1 tablet (20 mg) by oral route once daily for 30 days Name Start Date Expiration [...] 24hr 10/16/2009 08/05/2016 TAKE ONE CAPSULE DAILY [place] 10-325 mg oral tablet 08/05/2016 take 1 tablet by oral route every 6 hours as needed for pain enalapril maleate 10 mg oral tablet 09/17/2016 10/16/2016 take 1 tablet (10 mg ) by oral route once daily for 30 days Problem List Not available. Vital Signs Date Time BP-Sys(mm[Hg] BP-Adilene(mm[Hg]) HR(bpm) RR(rpm) Temp WT HT HC BMI BSA BMI Percentile O2 Sat(%) 09/30/2016 3:24:00 PM 128 mmHg 76 mmHg [...] 120 Mg Im/[facility]# [id number] Reviewed 08/05/2016 12:00 AM DESTRUCT PREMALG LESION [...] AM Depo-Medrol 120 Mg [facility] [id number]~[place] Reviewed 08/27/2009 12:00 AM OSTEOPATH MANJ 1-2 REGIONS Reviewed 08/27/2009 12:00 AM Depo-Medrol 120 Mg [facility] [id number]~[place] Reviewed 08/27/2009 12:00 AM OSTEOPATH MANJ 1-2 REGIONS Reviewed 08/27/2009 12:00 AM Depo-Medrol 120 Mg Im/[facility]# [id number] Reviewed 08/27/2009 12:00 AM OSTEOPATH MANJ 1-2 REGIONS Reviewed 08/27/2009 12:00 AM Depo-Medrol 120 Mg Im/[facility]# [id number] Reviewed 04/30/2009 12:00 AM THER/PROPH/DIAG INJ SC/IM Reviewed 04/30/2009 12:00 AM Depo-Medrol 120 Mg Im/[facility]# [id number] Reviewed Results Summary Date and Description Results [...] 3:35PM Hip pain Nov 25 2016 1:44PM Payers Insurance Name Company Name Plan Name Plan Number Policy Number Policy Group Number Start Date [facility] Plan of [id number] N/A [place] Medical Assistance [facility] Medical Assistance Pro [id number] N/A History of Encounters Visit Date Visit Type Provider 11/25/2016 Office visit Reggie Azar LAUNCH MANAGER 09/30/2016 Office visit Reggie Azar LAUNCH MANAGER 09/17/2016 Office visit Reggie Azar NP 09/02/2016 Office visit Reggie Azar LAUNCH MANAGER 08/19/2016 Office visit Reggie Azar LAUNCH MANAGER 08/05/2016 Office visit Reggie Azar LAUNCH MANAGER 11/13/2015 Hospital Jun Stacy [facility] 01/27/2014 [facility] Song Wright DO 01/03/2014 [facility] Jun Stacy MD 01/02/2014 [facility] Song Wright DO 08/27/2009 Office visit Gabe Boydr DO 08/02/2009 Nurse visit Gabe Boydr DO 05/28/2009 Office visit Gabe Boydr DO 04/30/2009 Nurse visit Gabe Boydr DO 01/10/2009 Office visit Gabe Boydr DO
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
--- OUTSIDE RECORDS SUMMARY | 2018-09-02 09:20 | XMS REPORT ---
Author Author Reggie Azar [facility] Address [address] [place], [place] [address] Care Team Providers Care Human Resources Operations Specialist Name Role Phone Reggie Azar PCP Unavailable [...] route once daily for 30 days cyclobenzaprine 5 mg oral [...] tablet by oral route daily as needed amoxicillin 875 mg oral tablet 01/14/2017 take 1 tablet (875 mg) by oral route every 12 hours for 10 days hydrocodone-acetaminophen 5-325 mg oral tablet 01/14/2017 take 1 tablet by oral route every 6 hours as needed for pain atorvastatin 20 mg oral tablet 02/02/2017 take 1 tablet (20 mg) by oral route once daily at bedtime for 90 days amitriptyline 50 mg oral tablet 02/02/2017 take 2 tablet (100 mg) by oral route once daily at bedtime for 30 days Augmentin 875-125 mg oral tablet 02/04/2017 take 1 tablet by oral route every 12 hours for 14 days gabapentin 100 mg oral capsule 02/10/2017 TAKE ONE CAPSULE BY MOUTH TWICE DAILY Name Start Date Expiration Date SIG Comments [...] 24hr 10/16/2009 08/05/2016 TAKE ONE CAPSULE DAILY [place] 10-325 mg oral tablet 08/05/2016 take 1 [...] per day for 30 days Problem List Description Status Onset Ventral hernia Active 02/04/2017 Mass Active 02/04/2017 Hip mass, left Active 02/04/2017 Vital Signs Date Time BP-Sys(mm[Hg] BP-Adilene(mm[Hg]) HR(bpm) RR(rpm) Temp WT HT HC BMI BSA BMI Percentile O2 Sat(%) 02/04/2017 11:38:00 AM 106 mmHg 64 mmHg [...] 12:00 AM Depo-Medrol 120 Mg Im/Fide Clinic [facility]# [id number] Reviewed 08/05/2016 12:00 AM DESTRUCT PREMALG LESION [...] 01/23/2017 12:00 AM THER/PROPH/DIAG INJ SC/IM Reviewed 08/02/2009 12:00 AM THER/PROPH/DIAG INJ SC/IM Reviewed 08/02/2009 12:00 AM Depo-Medrol 120 Mg [facility] [id number]~[place] Reviewed 08/27/2009 12:00 AM OSTEOPATH MANJ 1-2 REGIONS Reviewed 08/27/2009 12:00 AM Depo-Medrol 120 Mg [facility] [id number]~[place] Reviewed 08/27/2009 12:00 AM OSTEOPATH MANJ 1-2 REGIONS Reviewed 08/27/2009 12:00 AM Depo-Medrol 120 Mg Im/Fide Clinic [facility]# [id number] Reviewed 08/27/2009 12:00 AM OSTEOPATH MANJ 1-2 REGIONS Reviewed 08/27/2009 12:00 AM Depo-Medrol 120 Mg Im/Fide Clinic [facility]# [id number] Reviewed 04/30/2009 12:00 AM THER/PROPH/DIAG INJ SC/IM Reviewed 04/30/2009 12:00 AM Depo-Medrol 120 Mg Im/Fide [facility]# [id number] Reviewed Results Summary Date and Description Results [...] 02/04/2017 Mass 02/04/2017 Hip mass, left 02/04/2017 Plantar wart of right foot Aug 05 [...] Jan 06 2017 9:05AM Other chronic pain Jan 06 2017 9:05AM Neck pain Sep 2016 9:05AM Neuropathy of both feet Jan 06 2017 9:05AM Paresthesia of skin Jan 06 2017 9:05AM Anesthesia of skin Jan 06 2017 9:05AM Lipoma of buttock Sep 2016 9:05AM Abscessed tooth Sep 2016 11:05AM Abscessed tooth Jan 23 2017 9:50AM Ventral hernia Feb 03 2017 1:50PM Preop examination Feb 03 2017 1:50PM Mass Feb 03 2017 1:50PM Hip mass, left Feb 03 2017 3:16PM Abscessed tooth Feb 04 2017 11:44AM Payers Insurance Name Company Name Plan Name Plan Number Policy Number Policy Group Number Start Date [facility] Plan of [id number] N/A [place] Medical [place] Program [place] Medical [place] Pro [id number] N/A History of Encounters Visit Date Visit Type Provider 02/04/2017 Office visit Reggie Azar NP 02/03/2017 Procedures Song Wright DO 01/23/2017 Office visit Reggie Azar NP 01/14/2017 Office visit Reggie Azar SENIOR ANDROID DEVELOPER 01/06/2017 Office visit Reggie Azar SENIOR ANDROID DEVELOPER 12/23/2016 Office visit Reggie Azar NP 11/25/2016 Nurse visit Reggie Azar NP 09/30/2016 Office visit Reggie Azar NP 09/17/2016 Office visit Reggie Azar SENIOR ANDROID DEVELOPER 09/02/2016 Office visit Reggie Azar NP 08/19/2016 Office visit Reggie Azar NP 08/05/2016 Office visit Reggie Azar NP 11/13/2015 Hospital Jun Stacy MD 01/27/2014 Surgery Song Wright DO 01/03/2014 [facility] Song Wright DO 01/03/2014 [facility] Jun Stacy MD 01/02/2014 [facility] Song Wright DO 08/27/2009 Office visit Gabe Lombardo DO 08/02/2009 Nurse visit Gabe Lombardo DO 05/28/2009 Office visit Gabe Lombardo DO 04/30/2009 Nurse visit Gabe Lombardo DO 01/10/2009 Office visit Gabe Lombardo DO
--- OUTSIDE RECORDS SUMMARY | 2018-09-02 09:21 | XMS REPORT ---
Author Author YVES CHRISTIE [facility] Address [address] [place], [place] [address] Care Team Providers Care Studio Operations Engineer In Charge Name Role Phone YVES CHRISTIE PCP Allergies and Adverse Reactions Name Reaction Notes [...] Start Date Estimated Completion Date SIG Comments alprazolam 0.5 mg oral tablet 12/31/2016 take 1 tablet by oral route daily as needed atorvastatin 20 mg oral tablet 02/02/2017 take 1 tablet (20 mg) by oral route once daily at bedtime for 90 days tramadol 50 mg oral tablet take 1 tablet (50 mg) by oral route every 4- 6 hours as needed Aspirin Low Dose 81 mg oral tablet,delayed release (DR/EC) 04/03/2017 take 1 tablet (81 mg) by oral route once daily for 30 days Effexor XR 150 mg oral capsule,extended release 24hr 04/03/2017 take 1 capsule (150 mg) by oral route once daily with food for 30 days gabapentin 100 mg oral capsule 04/03/2017 TAKE ONE CAPSULE BY MOUTH TWICE DAILY celecoxib 100 mg oral capsule 04/03/2017 take 1 capsule (100 mg) by oral route 2 times per day for 30 days amitriptyline 50 mg oral tablet 04/03/2017 take 1 tablet (50 mg) by oral route once daily at bedtime for 30 days cyclobenzaprine 5 mg oral tablet 04/03/2017 take 1 tablet (5 mg) by oral route 3 times per day for 30 days clonazepam 1 mg oral tablet 04/02/2017 take 1 tablet by oral route 3 times a day as needed Name Start Date Expiration Date [...] 24hr 10/16/2009 08/05/2016 TAKE ONE CAPSULE DAILY [place] 10-325 mg oral tablet 08/05/2016 take 1 [...] for pain Augmentin 875-125 mg oral tablet 02/04/2017 03/09/2017 take 1 tablet by oral route every 12 hours for 14 days Problem List Description Status Onset Ventral hernia Active 02/04/2017 Mass Active 02/04/2017 Hip mass, left Active 02/04/2017 Vital Signs Date Time BP-Sys(mm[Hg] BP-Adilene(mm[Hg]) HR(bpm) RR(rpm) Temp WT HT HC BMI BSA BMI Percentile O2 Sat(%) 04/02/2017 9:13:00 AM 130 mmHg 84 mmHg [...] AM Depo-Medrol 120 Mg Im/[facility]# [address]-24 Reviewed 08/05/2016 12:00 AM DESTRUCT PREMALG LESION [...] 03/09/2017 12:00 AM THER/PROPH/DIAG INJ SC/IM Reviewed 08/02/2009 12:00 AM THER/PROPH/DIAG INJ SC/IM Reviewed 08/02/2009 12:00 AM Depo-Medrol 120 Mg [facility] [id number]~[place] Reviewed 08/27/2009 12:00 AM OSTEOPATH MANJ 1-2 REGIONS Reviewed 08/27/2009 12:00 AM Depo-Medrol 120 Mg [facility] [id number]~[place] Reviewed 08/27/2009 12:00 AM OSTEOPATH MANJ 1-2 REGIONS Reviewed 08/27/2009 12:00 AM Depo-Medrol 120 Mg Im/[facility]# [id number] Reviewed 08/27/2009 12:00 AM OSTEOPATH MANJ 1-2 REGIONS Reviewed 08/27/2009 12:00 AM Depo-Medrol 120 Mg Im/[facility]# [address]-00 Reviewed 04/30/2009 12:00 AM THER/PROPH/DIAG INJ SC/IM Reviewed 04/30/2009 12:00 AM Depo-Medrol 120 Mg Im/[facility]# [id number] Reviewed Results Summary Date and Description Results [...] major depressive disorder Apr 02 2017 3:54PM Payers Insurance Name Company Name Plan Name Plan Number Policy Number Policy Group Number Start Date [facility] Plan of [id number] N/A [place] Medical Assistance [facility] Medical Assistance Pro [id number] N/A History of Encounters Visit Date Visit Type Provider 04/02/2017 Office visit YVES JACQUES 03/23/2017 Office visit YVES JACQUES 03/17/2017 Surgery Song Wright DO 03/09/2017 Office visit Reggie Azar BRASS PLATER 02/26/2017 [facility] Song Wright DO 02/04/2017 Office visit Reggie Azar BRASS PLATER 02/04/2017 [facility] Jun Stacy MD 02/03/2017 [facility] Song Wright DO 01/23/2017 Office visit Reggie Azar BRASS PLATER 01/14/2017 Office visit Reggieelizabeth Azar BRASS PLATER 01/06/2017 Office visit Reggie Azar BRASS PLATER 12/23/2016 Office visit Reggie Azar BRASS PLATER 11/25/2016 Nurse visit Reggie Azar BRASS PLATER 09/30/2016 Office visit Reggie Azar BRASS PLATER 09/17/2016 Office visit Reggie Doe BRASS PLATER 09/02/2016 Office visit Reggieelizabeth Azar BRASS PLATER 08/19/2016 Office visit Reggie Azar BRASS PLATER 08/05/2016 Office visit Reggie Azar BRASS PLATER 11/13/2015 Hospital Jun Stacy MD 01/27/2014 Surgery Song Wright DO 01/03/2014 Hospital Song Wright DO 01/03/2014 Hospital Jun Stacy MD 01/02/2014 [facility] Song Wright DO 08/27/2009 Office visit Gabe Lombardo DO 08/02/2009 Nurse visit aGbe Boydr DO 05/28/2009 Office visit Gabe Boydr DO 04/30/2009 Nurse visit Gabe Boydr DO 01/10/2009 Office visit Gabe Boydr DO
--- OUTSIDE RECORDS SUMMARY | 2018-09-02 09:21 | XMS REPORT ---
Author Author Reggie Azar [facility] Address [address] [place], [place] [address] Care Team Providers Care Family Practice Physician Name Role Phone Reggie Azar PCP Unavailable Allergies and Adverse Reactions Name Reaction Notes Keflex PENICILLINS Plan of Treatment Planned Activity Comments Planned Date Planned Time Plan/Goal chronic hip and neck pain from past [...] Dose 81 mg oral tablet,delayed release (DR/EC) 08/19/2016 09/18/2016 take 1 tablet (81 mg) by oral route once daily for 30 days hydrocodone-acetaminophen 5-325 mg oral tablet 08/19/2016 take 1 tablet by oral route every [...] 24hr 10/16/2009 08/05/2016 TAKE ONE CAPSULE DAILY [place] 10-325 mg oral tablet 08/05/2016 take 1 tablet by oral route every 6 hours as needed for pain Problem List Not available. Vital Signs Date Time BP-Sys(mm[Hg] BP-Adilene(mm[Hg]) HR(bpm) RR(rpm) Temp WT HT HC BMI BSA BMI Percentile O2 Sat(%) 08/19/2016 8:07:00 AM 130 mmHg 84 mmHg [...] Status 05/28/2009 12:00 AM [facility] [address]-77 Reviewed 08/05/2016 12:00 AM DESTRUCT PREMALG LESION Reviewed 08/05/2016 12:00 AM DESTRUCT PREMALG LES 2-14 Reviewed 08/05/2016 12:00 AM DESTROY PREMAL LESIONS 15/> Reviewed 08/02/2009 12:00 AM THER/PROPH/DIAG INJ SC/IM Reviewed 08/02/2009 12:00 AM Depo-Medrol 120 Mg [facility] [id number]~[place] Reviewed 08/27/2009 12:00 AM OSTEOPATH MANJ 1-2 REGIONS Reviewed 08/27/2009 12:00 AM Depo-Medrol 120 Mg [facility] [id number]~[place] Reviewed 08/27/2009 12:00 AM OSTEOPATH MANJ 1-2 REGIONS Reviewed 08/27/2009 12:00 AM Depo-Medrol 120 Mg Im/[facility]# [address]-01 Reviewed 08/27/2009 12:00 AM OSTEOPATH MANJ 1-2 REGIONS Reviewed 08/27/2009 12:00 AM Depo-Medrol 120 Mg Im/[facility]# [id number] Reviewed 04/30/2009 12:00 AM THER/PROPH/DIAG INJ SC/IM Reviewed 04/30/2009 12:00 AM Depo-Medrol 120 Mg Im/[facility]# [address]-89 Reviewed Results Summary Not available. History Of [...] 2016 8:15AM Anxiety Aug 05 2016 8:25AM Payers Insurance Name Company Name Plan Name Plan Number Policy Number Policy Group Number Start Date [facility] Plan of [id number] N/A [place] Medical Assistance [facility] Medical Assistance Prog [id number] N/A History of Encounters Visit Date Visit Type Provider 08/19/2016 Office visit Reggie Azar NP 08/05/2016 Office visit Reggie Azar NP 11/13/2015 Hospital Jun Stacy MD 01/27/2014 Surgery Song Wright DO 01/03/2014 Hospital Song Wright DO 01/03/2014 [facility] Jun Stacy MD 01/02/2014 Hospital Song Wright DO 08/27/2009 Office visit Gabe Lombardo DO 08/02/2009 Nurse visit Gabe Boydr DO 05/28/2009 Office visit Gabe Boydr DO 04/30/2009 Nurse visit Gabe Boydr DO 01/10/2009 Office visit Gabe Boydr DO
--- OUTSIDE RECORDS SUMMARY | 2018-09-02 09:22 | XMS REPORT ---
Author YVES Wilson [facility] Address [address] [place], [place] [address] Care Team Providers Care General Foundry Worker Name Role Phone YVES CHRISTIE PCP YVES [...] route 3 times a day as needed [place] 10-325 mg oral tablet 04/22/2017 05/22/2017 take 1 tablet by oral route every 6 hours as needed for pain for 30 days Xanax 1 mg oral tablet 04/24/2017 05/24/2017 take 1 tablet by oral route for 30 days bedtime Name Start Date Expiration Date SIG Comments [...] 24hr 10/16/2009 08/05/2016 TAKE ONE CAPSULE DAILY [place] 10-325 mg oral tablet 08/05/2016 take 1 [...] disorder Active 04/09/2017 Essential hypertension Active 04/09/2017 Vital Signs Date Time BP-Sys(mm[Hg] BP-Adilene(mm[Hg]) HR(bpm) RR(rpm) Temp WT HT HC BMI BSA BMI Percentile O2 Sat(%) 04/29/2017 9:24:00 AM 140 mmHg 92 mmHg 131 bpm 18 rpm 99.3 F 139 lbs 62 in 25.42 kg/m2 1.66 m2 99 % 04/02/2017 9:13:00 AM 130 mmHg 84 mmHg 96 bpm 18 rpm 98 F 146 lbs 61 in 27.5862 kg/m 1.6883 m 98 % 03/23/2017 4:06:00 PM 110 mmHg 78 mmHg 90 bpm 16 rpm 98.3 F 144 lbs 61 in 27.21 kg/m2 1.68 m2 98 % 03/17/2017 12:38:00 PM 81 mmHg 66 mmHg 84 bpm 20 rpm 97.2 F 150.5 lbs 62 in 27.5265 kg/m 1.7281 m 03/09/2017 10:06:00 AM 124 mmHg 72 mmHg 111 bpm 18 rpm 97.5 F 149.5 lbs 62 in 27.34 kg/m2 1.72 m2 99 % 02/04/2017 11:38:00 AM 106 mmHg 64 mmHg 91 bpm 16 rpm 97.2 F 152.125 lbs 62 in 27.8237 kg/m 1.7374 m 98 % 02/03/2017 2:55:00 PM 96 mmHg 53 mmHg 89 bpm 20 rpm 97.8 F 152 lbs 57 in 32.89 kg/m2 1.67 m2 01/23/2017 9:45:00 AM 122 mmHg 62 mmHg 94 bpm 16 rpm 99.1 F 154.125 lbs 61 in 29.1214 kg/m 1.7346 m 99 % 01/14/2017 11:00:00 AM 118 mmHg 64 mmHg 90 bpm 16 rpm 98.1 F 151.25 lbs 61 in 28.58 kg/m2 1.72 m2 100 % 01/06/2017 8:57:00 AM 112 mmHg 68 mmHg 110 bpm 18 rpm 98.5 F 146.375 lbs 61 in 27.657 kg/m 1.6904 m 97 % 12/23/2016 10:42:00 AM 120 mmHg [...] Status 05/28/2009 12:00 AM Depo-Medrol 120 Mg Im/[facility]# [address]-48 Reviewed 08/05/2016 12:00 AM DESTRUCT PREMALG LESION [...] 08/02/2009 12:00 AM Depo-Medrol 120 Mg [facility] [id number]~[place] Reviewed 08/27/2009 12:00 AM OSTEOPATH MANJ 1-2 REGIONS Reviewed 08/27/2009 12:00 AM Depo-Medrol 120 Mg [facility] [id number]~[place] Reviewed 08/27/2009 12:00 AM OSTEOPATH MANJ 1-2 REGIONS Reviewed 08/27/2009 12:00 AM Depo-Medrol 120 Mg Im/Fide [facility]# [address]-90 Reviewed 08/27/2009 12:00 AM OSTEOPATH MANJ 1-2 REGIONS Reviewed 08/27/2009 12:00 AM Depo-Medrol 120 Mg Im/Fide [facility]# [address]-15 Reviewed 04/30/2009 12:00 AM THER/PROPH/DIAG INJ SC/IM Reviewed 04/30/2009 12:00 AM Depo-Medrol 120 Mg Im/Fide [facility]# [address]-06 Reviewed Results Summary Date and Description Results [...] major depressive disorder 04/09/2017 Essential hypertension 04/09/2017 Plantar wart of right foot Aug 05 [...] pain Jan 06 2017 9:05AM Neck pain Jan 06 2017 9:05AM Neuropathy of both feet Jan 06 2017 9:05AM Paresthesia of skin Jan 06 2017 9:05AM Anesthesia of skin Jan 06 2017 9:05AM Lipoma of buttock Jan 06 2017 [...] Generalized abdominal pain Apr 29 2017 9:28AM Payers Insurance Name Company Name Plan Name Plan Number Policy Number Policy Group Number Start Date [facility] Plan of [id number] N/A [facility] [id number] N/A [place] Medical Assistance Program [place] Medical [place] Prog [id number] N/A History of Encounters Visit Date Visit Type Provider 04/29/2017 Office visit YVES JACQUES 04/02/2017 Office visit YVES JACQUES 03/23/2017 Office visit YVES JACQUES 03/17/2017 Surgery Song Wright DO 03/09/2017 Office visit Reggie Azar PIPELINE SYSTEMS OPERATOR 02/26/2017 [facility] Song Wright DO 02/04/2017 Office visit Reggie Azar PIPELINE SYSTEMS OPERATOR 02/04/2017 [facility] Jun Stacy MD 02/03/2017 Procedures Song Wright DO 01/23/2017 Office visit Reggie Azar PIPELINE SYSTEMS OPERATOR 01/14/2017 Office visit Reggie Azar PIPELINE SYSTEMS OPERATOR 01/06/2017 Office visit Reggie Azar PIPELINE SYSTEMS OPERATOR 12/23/2016 Office visit Reggie Azar PIPELINE SYSTEMS OPERATOR 11/25/2016 Nurse visit Reggie Azar PIPELINE SYSTEMS OPERATOR 09/30/2016 Office visit Reggie Azar PIPELINE SYSTEMS OPERATOR 09/17/2016 Office visit Reggie Azar PIPELINE SYSTEMS OPERATOR 09/02/2016 Office visit Reggie Azar PIPELINE SYSTEMS OPERATOR 08/19/2016 Office visit Reggie Azar PIPELINE SYSTEMS OPERATOR 08/05/2016 Office visit Reggie Azar PIPELINE SYSTEMS OPERATOR 11/13/2015 [facility] Jun Stacy MD 01/27/2014 Surgery Song [...]
--- OUTSIDE RECORDS SUMMARY | 2018-09-02 09:23 | XMS REPORT ---
Author Song Jamil [facility] Address [address] [place], [place] [address] Care Team Providers Care Veterinary Hospital Attendant Name Role Phone Song Wright PCP Allergies and Adverse Reactions Name Reaction [...] route every 4- 6 hours as needed Name Start Date [...] 1 TABLET BY MOUTH THREE TIMES DAILY celecoxib 100 mg oral capsule 09/03/2016 03/02/2017 take 1 capsule (100 mg) by oral route 2 times per day for 30 days lisinopril 20 mg oral tablet 01/06/2017 01/06/2017 take 1 tablet (20 mg) by oral route once daily for 30 days cyclobenzaprine 5 mg oral tablet 03/03/2017 03/03/2017 take 1 tablet (5 mg) by oral route 3 times per day for 30 days Aspirin Low Dose 81 mg oral tablet,delayed release (DR/EC) 03/03/20172016 take 1 tablet (81 mg) by oral route once daily for 30 days amitriptyline 50 mg oral tablet 03/03/2017 03/03/2017 take 2 tablet (100 mg ) by oral route once daily at bedtime for 30 days Effexor XR 150 mg oral capsule,extended release 24hr 03/03/2017 03/03/2017 take 1 capsule (150 mg) by oral route once daily with food for 30 days gabapentin 100 mg oral capsule 03/10/2017 03/10/2017 TAKE ONE CAPSULE BY MOUTH TWICE DAILY Discontinued Name Start Date Discontinued Date [...] 24hr 10/16/2009 08/05/2016 TAKE ONE CAPSULE DAILY [place] 10-325 mg oral tablet 08/05/2016 take 1 [...] HC BMI BSA BMI Percentile O2 Sat(%) 03/17/2017 12:38:00 PM 81 mmHg 66 mmHg [...] AM Depo-Medrol 120 Mg Im/Fide Clinic [facility]# [address]-34 Reviewed 08/05/2016 12:00 AM DESTRUCT PREMALG LESION [...] AM Depo-Medrol 120 Mg [facility] [id number]~[place] Reviewed 08/27/2009 12:00 AM OSTEOPATH MANJ 1-2 REGIONS Reviewed 08/27/2009 12:00 AM Depo-Medrol 120 Mg [facility] [id number]~[place] Reviewed 08/27/2009 12:00 AM OSTEOPATH MANJ 1-2 REGIONS Reviewed 08/27/2009 12:00 AM [facility] [address]-02 Reviewed 08/27/2009 12:00 AM OSTEOPATH MANJ 1-2 REGIONS Reviewed 08/27/2009 12:00 AM [facility]Medrol [facility] [address]-44 Reviewed 04/30/2009 12:00 AM THER/PROPH/DIAG INJ SC/IM Reviewed 04/30/2009 12:00 AM [facility]-Medrol [facility] [address]-88 Reviewed Results Summary Date and Description Results [...] chronic pain Sep 2016 9:05AM Neck pain Jan 06 2017 9:05AM [...] 2017 10:17AM Dermatitis Mar 09 2017 10:17AM Payers Insurance Name Company Name Plan Name Plan Number Policy Number Policy Group Number Start Date [facility] Plan of [id number] N/A [place] [employer] Assistance Program [facility] [id number] N/A History of Encounters Visit Date Visit Type Provider 03/17/2017 Surgery Song Wright DO 03/09/2017 Office visit Reggie Azar DEHYDRATOR OPERATOR 02/26/2017 [facility] Song Wright DO 02/04/2017 Office visit Reggie Azar DEHYDRATOR OPERATOR 02/03/2017 Procedures Song Wright DO 01/23/2017 Office visit Reggie Azar DEHYDRATOR OPERATOR 01/14/2017 Office visit Reggie Azar DEHYDRATOR OPERATOR 01/06/2017 Office visit Reggie Azar DEHYDRATOR OPERATOR 12/23/2016 Office visit Reggie Azar DEHYDRATOR OPERATOR 11/25/2016 Nurse visit Reggie Azar DEHYDRATOR OPERATOR 09/30/2016 Office visit Reggie Azar DEHYDRATOR OPERATOR 09/17/2016 Office visit Reggie Azar DEHYDRATOR OPERATOR 09/02/2016 Office visit Reggie Azar DEHYDRATOR OPERATOR 08/19/2016 Office visit Reggie Azar DEHYDRATOR OPERATOR 08/05/2016 Office visit Reggie Azar DEHYDRATOR OPERATOR 11/13/2015 [facility] Jun Stacy MD 01/27/2014 Surgery Song Wright DO 01/03/2014 Hospital [facility] 01/03/2014 [facility] Jun Stacy MD 01/02/2014 [facility] Song Wright DO 08/27/2009 Office visit Gabe Boydr DO 08/02/2009 Nurse visit Gabe Boydr DO 05/28/2009 Office visit Gabe Boydr DO 04/30/2009 Nurse visit Gabe Boydr DO 01/10/2009 Office visit Gabe Boydr DO
--- OUTSIDE RECORDS SUMMARY | 2018-09-02 09:23 | XMS REPORT ---
Author Author Reggie Azar [facility] Address [address] [place], [place] [address] Care Team Providers Care Sorter Lumber Straightener Name Role Phone Reggie Azar PCP Unavailable [...] 24hr 10/16/2009 08/05/2016 TAKE ONE CAPSULE DAILY [place] 10-325 mg oral tablet 08/05/2016 take [...] Status 05/28/2009 12:00 AM Dep[facility]Medrol [facility] [id number] Reviewed 08/05/2016 12:00 AM DESTRUCT PREMALG LESION Reviewed 08/05/2016 12:00 AM DESTRUCT PREMALG LES 2-14 Reviewed 08/05/2016 12:00 AM DESTROY PREMAL LESIONS 15/> Reviewed 08/02/2009 12:00 AM THER/PROPH/DIAG INJ SC/IM Reviewed 08/02/2009 12:00 AM Depo-Medrol 120 Mg [facility] [id number]~[place] Reviewed 08/27/2009 12:00 AM OSTEOPATH MANJ 1-2 REGIONS Reviewed 08/27/2009 12:00 AM Depo-Medrol 120 Mg [facility] [id number]~[place] Reviewed 08/27/2009 12:00 AM OSTEOPATH MANJ 1-2 REGIONS Reviewed 08/27/2009 12:00 AM Depo-Medrol 120 Mg Im/[facility]# [address]-92 Reviewed 08/27/2009 12:00 AM OSTEOPATH MANJ 1-2 REGIONS Reviewed 08/27/2009 12:00 AM Depo-Medrol 120 Mg Im/[facility]# [address]-45 Reviewed 04/30/2009 12:00 AM THER/PROPH/DIAG INJ SC/IM Reviewed 04/30/2009 12:00 AM Depo-Medrol 120 Mg Im/[facility]# [id number] Reviewed Results Summary Not available. History Of [...] Anxiety with depression Aug 19 2016 8:15AM Payers Insurance Name Company Name Plan Name Plan Number Policy Number Policy Group Number Start Date [facility] Plan of [id number] N/A [place] Medical Assistance [facility] Medical Assistance Prog [id number] N/A History of Encounters Visit Date Visit Type Provider 08/19/2016 Office visit Reggie Azar NP 08/05/2016 Office visit Reggie Azar NP 11/13/2015 Hospital Jun Stacy MD 01/27/2014 Surgery Song Kyle DO 01/03/2014 Hospital Song Wright DO 01/03/2014 [facility] Jun Stacy MD 01/02/2014 [facility] Song Wright DO 08/27/2009 Office visit Gabe Lombardo DO 08/02/2009 Nurse visit Gabe Boydr DO 05/28/2009 Office visit Gabe Boydr DO 04/30/2009 Nurse visit Gabe Boydr DO 01/10/2009 Office visit Gabe Boydr DO
--- OUTSIDE RECORDS SUMMARY | 2018-09-02 09:24 | XMS REPORT ---
Author Author Reggie Azar [facility] Address [address] [place], [place] [address] Care Team Providers Care Immigration Paralegal Name Role Phone Reggie Azar PCP Unavailable [...] 24hr 10/16/2009 08/05/2016 TAKE ONE CAPSULE DAILY [place] 10-325 mg oral tablet 08/05/2016 take 1 [...] HC BMI BSA BMI Percentile O2 Sat(%) 01/14/2017 11:00:00 AM 118 mmHg 64 mmHg [...] Status 05/28/2009 12:00 AM Depo-Medrol 120 Mg Im/[facility]# [address]-75 Reviewed 08/05/2016 12:00 AM DESTRUCT PREMALG LESION [...] Reviewed 08/02/2009 12:00 AM Depo-Medrol 120 Mg [facility] [id number]~Munira Reviewed 08/27/2009 12:00 AM OSTEOPATH MANJ 1-2 REGIONS Reviewed 08/27/2009 12:00 AM Depo-Medrol 120 Mg [facility] [id number]~[place]unira Reviewed 08/27/2009 12:00 AM OSTEOPATH MANJ 1-2 REGIONS Reviewed 08/27/2009 12:00 AM Depo-Medrol 120 Mg Im/[facility]# [address]-96 Reviewed 08/27/2009 12:00 AM OSTEOPATH MANJ 1-2 REGIONS Reviewed 08/27/2009 12:00 AM Depo-Medrol 120 Mg Im/[facility]# [id number] Reviewed 04/30/2009 12:00 AM THER/PROPH/DIAG INJ SC/IM Reviewed 04/30/2009 12:00 AM Depo-Medrol 120 Mg Im/[facility]# [address]-66 Reviewed Results Summary Date and Description Results [...] buttock Jan 06 2017 9:05AM Abscessed tooth Sep 2016 11:05AM Payers Insurance Name Company Name Plan Name Plan Number Policy Number Policy Group Number Start Date [facility] Plan of [id number] N/A [place] Medical [place] Program [place] Prog [id number] N/A History of Encounters Visit Date Visit Type Provider 01/14/2017 Office visit Reggie Azar CANCER REGISTRY COORDINATOR 01/06/2017 Office visit Reggie Azar CANCER REGISTRY COORDINATOR 12/23/2016 Office visit Reggie Azar CANCER REGISTRY COORDINATOR 11/25/2016 Nurse visit Reggie Azar CANCER REGISTRY COORDINATOR 09/30/2016 Office visit Reggie Azar CANCER REGISTRY COORDINATOR 09/17/2016 Office visit Reggie Azar CANCER REGISTRY COORDINATOR 09/02/2016 Office visit Reggie Azar CANCER REGISTRY COORDINATOR 08/19/2016 Office visit Reggie Azar CANCER REGISTRY COORDINATOR 08/05/2016 Office visit Reggie Azar CANCER REGISTRY COORDINATOR 11/13/2015 [facility] Jun Stacy MD 01/27/2014 Surgery Song Wright DO 01/03/2014 Hospital Song Wright DO 01/03/2014 [facility] Jun Stacy MD 01/02/2014 [facility] Song Wright DO 08/27/2009 Office visit Gabe Boydr DO 08/02/2009 Nurse visit Gabe Scruggs Munira DO 05/28/2009 Office visit Gabe Scruggs Munira DO 04/30/2009 Nurse visit Gabe VAnisha Munira DO 01/10/2009 Office visit Gabe VAnisha Munira DO
--- OUTSIDE RECORDS SUMMARY | 2018-09-02 09:25 | XMS REPORT ---
Author Author YVES CHRISTIE [facility] Address [address] [place], [place] [id number] Care Team Providers Care Automotive Electrical Fitter Name Role Phone YVES CHRSITIE PCP YVES CHRISTIE PreferredProvider Allergies and Adverse [...] Start Date Estimated Completion Date SIG Comments atorvastatin 20 mg oral tablet 02/02/2017 take 1 tablet (20 mg) by oral route once daily at bedtime for 90 days Aspirin Low Dose 81 mg oral tablet,delayed release (DR/EC) 04/03/2017 take 1 tablet (81 mg) by oral route once daily for 30 days enalapril maleate 10 mg oral tablet take 1 tablet (10 mg) by oral route once daily celecoxib 100 mg oral capsule 05/28/2017 take 1 capsule (100 mg) by oral route 2 times per day for 30 days cyclobenzaprine 5 mg oral tablet 05/25/2017 take 1 tablet (5 mg) by oral route 3 times per day for 30 days Xanax 0.5 mg oral tablet 06/19/2017 07/19/2017 take 1 tablet (0.5 mg) by oral route 3 times per day for 30 days amitriptyline 150 mg oral tablet 07/10/2017 10/08/2017 take 1 tablet (150 mg) by oral route once daily at bedtime for 30 days hydrocodone-ibuprofen 7.5-200 mg oral tablet 07/09/2017 08/08/2017 take 1 tablet by oral route every 6 hours as needed for pain not to exceed 5 tablets in 24hrs for 30 days Name Start Date Expiration [...] route every 4- 6 hours as needed [place] 10-325 mg oral tablet 05/21/2017 06/20/2017 take 1 tablet by oral route every 6 hours as needed for pain for 30 days Effexor XR 150 mg oral capsule,extended release 24hr 05/28/2017 05/28/2017 take 1 capsule (150 mg) by oral route once daily with food for 30 days Discontinued Name Start Date [...] 24hr 10/16/2009 08/05/2016 TAKE ONE CAPSULE DAILY [place] 10-325 mg oral tablet 08/05/2016 take 1 [...] route every 12 hours for 14 days clonazepam 1 mg oral tablet 05/28/2017 06/14/2017 take 1 tablet by oral route 3 times a day as needed tramadol 50 mg oral tablet 06/19/2017 07/10/2017 ONE TABLET EVERY 12 HOURS gabapentin 100 mg oral capsule 07/02/2017 07/10/2017 TAKE ONE CAPSULE BY MOUTH TWICE DAILY Problem List Description Status Onset Ventral hernia Active 02/04/2017 Mass Active 02/04/2017 Hip mass, left Active 02/04/2017 History of methamphetamine abuse Active 04/09/2017 Moderate episode of recurrent major depressive disorder Active 04/09/2017 Essential hypertension Active 04/09/2017 Vital Signs Date Time BP-Sys(mm[Hg] BP-[place](mm[Hg]) HR(bpm) RR(rpm) Temp WT HT HC BMI BSA BMI Percentile O2 Sat(%) 07/09/2017 4:13:00 PM 128 mmHg 72 mmHg [...] Status 05/28/2009 12:00 AM Depo-Medrol 120 Mg /[facility]# [address]-45 Reviewed 08/05/2016 12:00 AM DESTRUCT PREMALG LESION [...] Reviewed 05/25/2017 12:00 AM Decadron 8mg Injection, [facility] Medicare Reviewed 06/09/2017 12:00 AM Decadron 8mg Injection, [facility] Medicare Reviewed 06/09/2017 12:00 AM Toradol 60 Mg Injection, [facility] Medicare Reviewed 06/09/2017 12:00 AM THERAPEUTIC PROPHYLACTIC/DX INJECTION SUBQ/IM Reviewed 08/02/2009 12:00 AM THER/PROPH/DIAG INJ SC/IM Reviewed 08/02/2009 12:00 AM Depo-Medrol 120 Mg [facility] [id number]~Munira Reviewed 08/27/2009 12:00 AM OSTEOPATH MANJ 1-2 REGIONS Reviewed 08/27/2009 12:00 AM Depo-Medrol 120 Mg [facility] [id number]~[place]ira Reviewed 08/27/2009 12:00 AM OSTEOPATH MANJ 1-2 REGIONS Reviewed 08/27/2009 12:00 AM [facility]Med[facility] [address]-93 Reviewed 08/27/2009 12:00 AM OSTEOPATH MANJ 1-2 REGIONS Reviewed 08/27/2009 12:00 AM Depo-Medrol 120 Mg Im/[facility]# [address]-10 Reviewed 04/30/2009 12:00 AM THER/PROPH/DIAG INJ SC/IM Reviewed 04/30/2009 12:00 AM Depo-Medrol 120 Mg [facility] [address]-17 Reviewed Results Summary Date and Description Results [...] 4:16PM Medication management Jul 09 2017 4:16PM Payers Insurance Name Company Name Plan Name Plan Number Policy Number Policy Group Number Start Date [facility] Comm Plan of [id number] N/A [facility] Comm [id number] N/A [place] Medical [place] Prog [id number] N/A History of Encounters Visit Date Visit Type Provider 07/09/2017 Office visit YVES JACQUES 06/09/2017 Office visit YVES JACQUES 05/25/2017 Office visit YVES JACQUES 04/29/2017 Office visit YVES JACQUES 04/02/2017 Office visit YVES JACQUES 03/23/2017 Office visit YVES JACQUES 03/17/2017 Surgery Song Wright DO 03/09/2017 Office visit Reggie Azar FASHION MARKETER 02/26/2017 Hospital Song Wright DO 02/04/2017 Office visit Reggie Azar FASHION MARKETER 02/04/2017 Hospital Jun Stacy MD 02/03/2017 Procedures Song Wright DO 01/23/2017 Office visit Reggieelizabeth Charltonle FASHION MARKETER 01/14/2017 Office visit Reggieelizabeth Charltonle FASHION MARKETER 01/06/2017 Office visit Reggieelizabeth Charltonle FASHION MARKETER 12/23/2016 Office visit Reggie Charltonle FASHION MARKETER 11/25/2016 Nurse visit Reggie Azar FASHION MARKETER 09/30/2016 Office visit Reggie Charltonle FASHION MARKETER 09/17/2016 Office visit Reggie Azar FASHION MARKETER 09/02/2016 Office visit Reggie Azar FASHION MARKETER 08/19/2016 Office visit Reggie Azar FASHION MARKETER 08/05/2016 Office visit Reggieelizabeth Charltonle FASHION MARKETER 11/13/2015 [facility] Jun Stacy MD 01/27/2014 Surgery Song Wright DO 01/03/2014 Hospital Song Wright DO 01/03/2014 [facility] Jun Stacy MD 01/02/2014 [facility] Song Wright DO 08/27/2009 Office visit Gabe V. Munira DO 08/02/2009 Nurse visit Gabe V. Munira DO 05/28/2009 Office visit Gabe V. Munira DO 04/30/2009 Nurse visit Gabe V. Munira DO 01/10/2009 Office visit Gabe V. Munira DO
--- OUTSIDE RECORDS SUMMARY | 2018-09-02 09:26 | XMS REPORT ---
Author Author YVES CHRISTIE [facility] Address [address] [place], [place] [id number] Care Team Providers Care Farm Mortgage Agent Name Role Phone YVES CHRISTIE PCP Allergies [...] 24hr 10/16/2009 08/05/2016 TAKE ONE CAPSULE DAILY [place] 10-325 mg oral tablet 08/05/2016 take 1 [...] Status 05/28/2009 12:00 AM Depo-Medrol 120 Mg Im/[facility]# [address]-63 Reviewed 08/05/2016 12:00 AM DESTRUCT PREMALG LESION [...] 120 Mg [facility] [id number]~Munira Reviewed 08/27/2009 12:00 AM OSTEOPATH MANJ 1-2 REGIONS Reviewed 08/27/2009 12:00 AM Depo-Medrol 120 Mg [facility] [id number]~Munira Reviewed 08/27/2009 12:00 AM OSTEOPATH MANJ 1-2 REGIONS Reviewed 08/27/2009 12:00 AM Depo-Medrol 120 Mg Im/[facility]# [address]-72 Reviewed 08/27/2009 12:00 AM OSTEOPATH MANJ 1-2 REGIONS Reviewed 08/27/2009 12:00 AM Depo-Medrol 120 Mg Im/[facility]# [address]-61 Reviewed 04/30/2009 12:00 AM THER/PROPH/DIAG INJ SC/IM Reviewed 04/30/2009 12:00 AM Depo-Medrol 120 Mg Im/[facility]# [address]-53 Reviewed Results Summary Date and Description Results [...] Policy Number Policy Group Number Start Date [facility] Comm Plan of [id number] N/A [facility] Comm [id number] N/A [place] Medical Assistance [facility] Medical Assistance Prog [id number] N/A History of Encounters Visit Date Visit Type Provider 04/02/2017 Office visit YVES JACQUES 03/23/2017 Office visit YVES JACQUES 03/17/2017 Surgery Song Wright DO 03/09/2017 Office visit Reggie Azar NP 02/26/2017 [facility] Song Wright DO 02/04/2017 Office visit Reggie Azar NP 02/04/2017 [facility] Jun Stacy MD 02/03/2017 Procedures Song Wright DO 01/23/2017 Office visit Reggie Azar IMPORT CUSTOMS CLEARING AGENT 01/14/2017 Office visit Reggie Azar IMPORT CUSTOMS CLEARING AGENT 01/06/2017 Office visit Reggie Azar IMPORT CUSTOMS CLEARING AGENT 12/23/2016 Office visit Reggie Azar IMPORT CUSTOMS CLEARING AGENT 11/25/2016 Nurse visit Reggie Azar IMPORT CUSTOMS CLEARING AGENT 09/30/2016 Office visit Reggie Azar IMPORT CUSTOMS CLEARING AGENT 09/17/2016 Office visit Reggie Azar IMPORT CUSTOMS CLEARING AGENT 09/02/2016 Office visit Reggie Azar IMPORT CUSTOMS CLEARING AGENT 08/19/2016 Office visit Reggie Azar IMPORT CUSTOMS CLEARING AGENT 08/05/2016 Office visit Reggie Azar IMPORT CUSTOMS CLEARING AGENT 11/13/2015 [facility] Jun Stacy MD 01/27/2014 Surgery Song Wright DO 01/03/2014 [facility] Song Wright DO 01/03/2014 Hospital Jun Stacy MD 01/02/2014 [facility] Song Wright DO 08/27/2009 Office visit Gabe Lombardo DO 08/02/2009 Nurse visit Gabe Lombardo DO 05/28/2009 Office visit Gabe Lombardo DO 04/30/2009 Nurse visit Gabe Lombardo DO 01/10/2009 Office visit Gabe Boydr DO
--- OUTSIDE RECORDS SUMMARY | 2018-09-02 09:26 | XMS REPORT ---
Author Author Reggie Azar [facility] Address [address] [place], [place] [address] Care Team Providers Care Canopy Inspector Name Role Phone Reggie Azar PCP Unavailable [...] every 6 hours as needed for pain celecoxib 100 mg oral capsule 09/03/2016 03/02/2017 take 1 capsule (100 mg) by oral route 2 times per day for 30 days Name Start Date Expiration [...] 24hr 10/16/2009 08/05/2016 TAKE ONE CAPSULE DAILY [place] 10-325 mg oral tablet 08/05/2016 take 1 [...] 12:00 AM Depo-Medrol 120 Mg Im/[facility]# [address]-26 Reviewed 08/05/2016 12:00 AM DESTRUCT PREMALG LESION Reviewed 08/05/2016 12:00 AM DESTRUCT PREMALG LES 2-14 Reviewed 08/05/2016 12:00 AM DESTROY PREMAL LESIONS 15/> Reviewed 09/02/2016 12:00 AM COMPLETE CBC W/AUTO DIFF WBC Reviewed 09/02/2016 12:00 AM COMPREHEN METABOLIC PANEL Reviewed 09/02/2016 12:00 AM LIPID PANEL Reviewed 09/02/2016 12:00 AM ROUTINE VENIPUNCTURE Reviewed 08/02/2009 12:00 AM THER/PROPH/DIAG INJ SC/IM Reviewed 08/02/2009 12:00 AM Depo-Medrol 120 Mg [facility] [id number]~[place]unira Reviewed 08/27/2009 12:00 AM OSTEOPATH MANJ 1-2 REGIONS Reviewed 08/27/2009 12:00 AM Depo-Medrol 120 Mg [facility] [id number]~[place] Reviewed 08/27/2009 12:00 AM OSTEOPATH MANJ 1-2 REGIONS Reviewed 08/27/2009 12:00 AM Depo-Medrol 120 Mg Im/[facility]# [address]-45 Reviewed 08/27/2009 12:00 AM OSTEOPATH MANJ 1-2 REGIONS Reviewed 08/27/2009 12:00 AM Depo-Medrol 120 Mg Im/[facility]# [address]-07 Reviewed 04/30/2009 12:00 AM THER/PROPH/DIAG INJ SC/IM Reviewed 04/30/2009 12:00 AM Depo-Medrol 120 Mg Im/[facility]# [address]-74 Reviewed Results Summary Date and Description Results [...] Start Date [facility] Plan of [id number] N/A [place] Medical Assistance [facility] Medical Assistance Prog [id number] N/A History of Encounters Visit Date Visit Type Provider 09/02/2016 Office visit Reggie Azar NP 08/19/2016 Office visit Reggie Azar NP 08/05/2016 Office visit Reggie Azar NP 11/13/2015 Hospital Jun Stacy MD 01/27/2014 Surgery Song Wright DO 01/03/2014 Hospital Song Wright DO 01/03/2014 [place] Stacy MD 01/02/2014 [facility] Song Wright DO 08/27/2009 Office visit Gabe Lombardo DO 08/02/2009 Nurse visit Gabe Lombardo DO 05/28/2009 Office visit Gabe Lombardo DO 04/30/2009 Nurse visit Gabe Lombardo DO 01/10/2009 Office visit Gabe Lombardo DO
--- OUTSIDE RECORDS SUMMARY | 2018-09-02 09:27 | XMS REPORT ---
Author Song Jamil [facility] Address [address] [place], [place] [address] Care Team Providers Care Band And Cuff Cutter Name Role Phone Song Wright PCP Unavailable Allergies and Adverse Reactions Name Reaction Notes Keflex anaphylaxis Plan of Treatment Planned Activity Comments Planned Date Planned Time Plan/Goal Abdomen 2View Decub/Upright- Main 09/17/2016 12:00 AM CBC W/ AUTO DIFF (RFLX MAN DIFF IF IND). 02/03/2017 12:00 AM CMP 02/03/2017 12:00 AM CX CHEST 2 VIEWS 02/03/2017 12:00 AM EKG. 02/03/2017 12:00 AM chronic hip and neck pain [...] tablet by oral route daily as needed gabapentin 100 mg oral capsule 01/07/2017 take [...] route every 12 hours for 7 days atorvastatin 20 mg oral tablet 02/02/2017 take 1 tablet (20 mg) by oral route once daily at bedtime for 90 days amitriptyline 50 mg oral tablet 02/02/2017 take 2 tablet (100 mg) by oral route once daily at bedtime for 30 days Name Start Date Expiration [...] 24hr 10/16/2009 08/05/2016 TAKE ONE CAPSULE DAILY [place] 10-325 mg oral tablet 08/05/2016 take 1 [...] Ventral hernia Active 02/04/2017 Mass Active 02/04/2017 Vital Signs Date Time BP-Sys(mm[Hg] BP-[place](mm[Hg]) HR(bpm) RR(rpm) Temp WT HT HC BMI BSA BMI Percentile O2 Sat(%) 02/03/2017 2:55:00 PM 96 mmHg 53 mmHg [...] Im/[facility]# [address]-60 Reviewed 08/05/2016 12:00 AM DESTRUCT PREMALG LESION [...] [address] [facility] [id number]~Munira Reviewed 08/27/2009 12:00 AM OSTEOPATH MANJ 1-2 REGIONS Reviewed 08/27/2009 12:00 AM Depo-Medrol [address] [facility] [id number]~[place]ira Reviewed 08/27/2009 12:00 AM OSTEOPATH MANJ 1-2 REGIONS Reviewed 08/27/2009 12:00 AM Depo-Medrol 120 Mg Im/[facility]# [address]-64 Reviewed 08/27/2009 12:00 AM OSTEOPATH MANJ 1-2 REGIONS Reviewed 08/27/2009 12:00 AM Depo-Medrol 120 Mg Im/[facility]# [address]-51 Reviewed 04/30/2009 12:00 AM THER/PROPH/DIAG INJ SC/IM Reviewed 04/30/2009 12:00 AM Depo-Medrol 120 Mg Im/[facility]# [address]-86 Reviewed Results Summary Date and Description Results [...] Warts Neuropathy Ventral hernia 02/04/2017 Mass 02/04/2017 Plantar wart of right foot Aug [...] 2017 1:50PM Mass Feb 03 2017 1:50PM Payers Insurance Name Company Name Plan Name Plan Number Policy Number Policy Group Number Start Date [facility] Plan of [id number] N/A [place] Assistance Program [place] Assistance Prog [id number] N/A History of Encounters Visit Date Visit Type Provider 02/03/2017 Procedures Song Wright DO 01/23/2017 Office visit Reggie Azar NP 01/14/2017 Office visit Reggie Azar NP 01/06/2017 Office visit Reggie Azar NP 12/23/2016 Office visit Reggie Azar HEAD MACHINE FEEDER 11/25/2016 Nurse visit Reggie Azar HEAD MACHINE FEEDER 09/30/2016 Office visit Reggie Azar HEAD MACHINE FEEDER 09/17/2016 Office visit Reggie Azar HEAD MACHINE FEEDER 09/02/2016 Office visit Reggie Azar HEAD MACHINE FEEDER 08/19/2016 Office visit Reggie Azar HEAD MACHINE FEEDER 08/05/2016 Office visit Reggie Azar HEAD MACHINE FEEDER 11/13/2015 [facility] Jun Stacy MD 01/27/2014 Surgery [facility] DO 01/03/2014 Hospital [facility] DO 01/03/2014 [facility] Jun Stacy MD 01/02/2014 [employer] DO 08/27/2009 Office visit Gabe Lombardo DO 08/02/2009 Nurse visit Gabe Lombardo DO 05/28/2009 Office visit Gabe Lombardo DO 04/30/2009 Nurse visit Gabe Lombardo DO 01/10/2009 Office visit Gabe Lombardo DO
--- OUTSIDE RECORDS SUMMARY | 2018-09-02 09:27 | XMS REPORT ---
Author Song Jamil [facility] Address [address] [place], [place] [address] Care Team Providers Care Mail Processing Clerk Name Role Phone Song Wright PCP Unavailable [...] 24hr 10/16/2009 08/05/2016 TAKE ONE CAPSULE DAILY [place] 10-325 mg oral tablet 08/05/2016 take 1 [...] 12:00 AM Depo-Medrol 120 Mg Im/[facility]# [address]-54 Reviewed 08/05/2016 12:00 AM DESTRUCT PREMALG LESION [...] Reviewed 08/02/2009 12:00 AM Depo-Medrol 120 Mg [facility] [id number]~Munira Reviewed 08/27/2009 12:00 AM OSTEOPATH MANJ 1-2 REGIONS Reviewed 08/27/2009 12:00 AM Depo-Medrol 120 Mg [facility] [id number]~M[place]ira Reviewed 08/27/2009 12:00 AM OSTEOPATH MANJ 1-2 REGIONS Reviewed 08/27/2009 12:00 AM Depo-Medrol 120 Mg Im/[facility]# [address]-98 Reviewed 08/27/2009 12:00 AM OSTEOPATH MANJ 1-2 REGIONS Reviewed 08/27/2009 12:00 AM Depo-Medrol 120 Mg Im/[facility]# [address]-35 Reviewed 04/30/2009 12:00 AM THER/PROPH/DIAG INJ SC/IM Reviewed 04/30/2009 12:00 AM Depo-Medrol 120 Mg Im/[facility]# [address]-42 Reviewed Results Summary Date and Description Results [...] Hip mass, left Feb 03 2017 3:16PM Payers Insurance Name Company Name Plan Name Plan Number Policy Number Policy Group Number Start Date [facility] Plan of [id number] N/A [place] Medical Assistance Program [place] Medical Assistance Prog [id number] N/A History of Encounters Visit Date Visit Type Provider 02/03/2017 Procedures Song Wright DO 01/23/2017 Office visit Reggie Doe RESEARCH AND DEVELOPMENT SCIENTIST 01/14/2017 Office visit Reggie Azar RESEARCH AND DEVELOPMENT SCIENTIST 01/06/2017 Office visit Reggie Azar RESEARCH AND DEVELOPMENT SCIENTIST 12/23/2016 Office visit Reggie Azar RESEARCH AND DEVELOPMENT SCIENTIST 11/25/2016 Nurse visit Reggie Azar RESEARCH AND DEVELOPMENT SCIENTIST 09/30/2016 Office visit Reggie Azar RESEARCH AND DEVELOPMENT SCIENTIST 09/17/2016 Office visit Reggie Azar RESEARCH AND DEVELOPMENT SCIENTIST 09/02/2016 Office visit Reggie Azar RESEARCH AND DEVELOPMENT SCIENTIST 08/19/2016 Office visit Reggie Azar RESEARCH AND DEVELOPMENT SCIENTIST 08/05/2016 Office visit Reggie Azar RESEARCH AND DEVELOPMENT SCIENTIST 11/13/2015 Hospital Jun Stacy MD 01/27/2014 [facility]2014 Hospital [facility] DO 01/03/2014 [facility] Jun Stacy MD 01/02/2014 [facility] DO 08/27/2009 Office visit Gabe Lombardo DO 08/02/2009 Nurse visit Gabe Lombardo DO 05/28/2009 Office visit Gabe Lombardo DO 04/30/2009 Nurse visit Gabe Lombardo DO 01/10/2009 Office visit Gabe Lombardo DO
--- OUTSIDE RECORDS SUMMARY | 2018-09-02 09:28 | XMS REPORT ---
Author Author YVES CHRISTIE [facility] Address [address] [place], [place] [address] Care Team Providers Care Fruit Dumper Name Role Phone YVES CHRISTIE PCP YVES [...] 3 times per day for 30 days Tessalon Perles 100 mg oral capsule 07/16/2017 take 1 capsule (100 mg) by oral route 3 times per day amitriptyline 150 mg oral tablet 08/06/2017 11/04/2017 take 1 tablet (150 mg) by oral route once daily at bedtime for 30 days Aspirin Low Dose 81 mg oral tablet,delayed release (DR/EC) 09/17/2017 take 1 tablet (81 mg) by oral route once daily for 30 days citalopram 20 mg oral tablet 09/17/2017 TAKE ONE TABLET BY MOUTH DAILY cyclobenzaprine 10 mg oral tablet 09/18/2017 TAKE ONE TABLET (10mg) BY MOUTH THREE TIMES DAILY Xanax 0.5 mg oral tablet 09/18/2017 11/17/2017 take 1 tablet (0.5 mg) by oral route 3 times per day for 30 days Name [...] route every 4- 6 hours as needed Ottertail 10-325 mg oral tablet 05/21/2017 06/20/2017 take [...] 2 times per day for 10 days hydrocodone-ibuprofen 7.5-200 mg oral tablet 09/04/2017 10/04/2017 take 1 tablet by oral route every 6 hours as needed for pain not to exceed 5 tablets in 24hrs for 30 days x 2 Discontinued Name Start Date Discontinued Date SIG [...] 24hr 10/16/2009 08/05/2016 TAKE ONE CAPSULE DAILY [place] 10-325 mg oral tablet 08/05/2016 take 1 [...] due to abuse of medication Active 04/2017 Vital Signs Date Time BP-Sys(mm[Hg] BP-[place]il[place](mm[Hg]) HR(bpm) RR(rpm) Temp WT HT HC BMI BSA BMI Percentile O2 Sat(%) 09/21/2017 9:04:00 AM 114 mmHg 78 mmHg [...] Status 05/28/2009 12:00 AM Depo-Medrol 120 Mg Im/[facility]# [address]-87 Reviewed 08/05/2016 12:00 AM DESTRUCT PREMALG LESION [...] Reviewed 05/25/2017 12:00 AM Decadron 8mg Injection, [facility] Medicare Reviewed 06/09/2017 12:00 AM Decadron 8mg Injection, [facility] Medicare Reviewed 06/09/2017 12:00 AM Toradol 60 Mg Injection, [facility] Medicare Reviewed 06/09/2017 12:00 AM THERAPEUTIC PROPHYLACTIC/DX INJECTION SUBQ/IM Reviewed 08/02/2009 12:00 AM THER/PROPH/DIAG INJ SC/IM Reviewed 08/02/2009 12:00 AM Depo-Medrol 120 Mg [facility] [id number]~[place] Reviewed 09/21/2017 12:00 AM Decadron 8mg Injection, [facility] Medicaid Reviewed 09/21/2017 12:00 AM Depo-Medrol 80 Mg Injection, [facility] Medicaid Reviewed 09/21/2017 12:00 AM THERAPEUTIC PROPHYLACTIC/DX INJECTION SUBQ/IM Reviewed 08/27/2009 12:00 AM OSTEOPATH MANJ 1-2 REGIONS Reviewed 08/27/2009 12:00 AM Depo-Medrol 120 Mg [facility] [id number]~[place] Reviewed 08/27/2009 12:00 AM OSTEOPATH MANJ 1-2 REGIONS Reviewed 08/27/2009 12:00 AM Depo-Medrol 120 Mg Im/[facility]# [address]-43 Reviewed 08/27/2009 12:00 AM OSTEOPATH MANJ 1-2 REGIONS Reviewed 08/27/2009 12:00 AM Depo-Medrol 120 Mg Im/Fide [facility]# [address]-48 Reviewed 04/30/2009 12:00 AM THER/PROPH/DIAG INJ SC/IM Reviewed 04/30/2009 12:00 AM Depo-Medrol 120 Mg Im/Fide [facility]# [address]-96 Reviewed Results Summary Date and Description Results [...] treatment due to abuse of medication 10/18/2017 Plantar wart of right foot Aug 05 [...] abuse of medication Sep 21 2017 9:04AM Payers Insurance Name Company Name Plan Name Plan Number Policy Number Policy Group Number Start Date [facility] Comm Plan of [id number] N/A [facility] Comm [id number] N/A [place] Medical Assistance [facility] Medical Assistance Prog [id number] N/A History of Encounters Visit Date Visit Type Provider 09/21/2017 Office visit YVES JACQUES 07/09/2017 Office visit YVES JACQUES 06/09/2017 Office visit YVES JACQUES 05/25/2017 Office visit YVES JACQUES 04/29/2017 Office visit YVES JACQUES 04/02/2017 Office visit YVES JACQUES 03/23/2017 Office visit YVES JACQUES 03/17/2017 Surgery Song Wright DO 03/09/2017 Office visit Reggie Azar NP 02/26/2017 [facility] Song Wright DO 02/04/2017 Office visit Reggie Azar CHANNEL MARKETING PROGRAM MANAGER 02/04/2017 [facility] Jun Stacy MD 02/03/2017 Procedures Song Wright DO 01/23/2017 Office visit Reggie Azar CHANNEL MARKETING PROGRAM MANAGER 01/14/2017 Office visit Reggie Azar CHANNEL MARKETING PROGRAM MANAGER 01/06/2017 Office visit Reggie Azar CHANNEL MARKETING PROGRAM MANAGER 12/23/2016 Office visit Reggie Azar CHANNEL MARKETING PROGRAM MANAGER 11/25/2016 Nurse visit Reggie Azar CHANNEL MARKETING PROGRAM MANAGER 09/30/2016 Office visit Reggie Azar CHANNEL MARKETING PROGRAM MANAGER 09/17/2016 Office visit Reggie Charltonle CHANNEL MARKETING PROGRAM MANAGER 09/02/2016 Office visit Reggie Azar CHANNEL MARKETING PROGRAM MANAGER 08/19/2016 Office visit Reggie Azar CHANNEL MARKETING PROGRAM MANAGER 08/05/2016 Office visit Reggie Azar CHANNEL MARKETING PROGRAM MANAGER 11/13/2015 [facility] Jun Stacy MD 01/27/2014 Surgery [facility] DO 01/03/2014 [facility] Song [facility] DO 01/03/2014 [facility] Jun Stacy MD 01/02/2014 [facility] DO 08/27/2009 Office visit Gabe Lombardo DO 08/02/2009 Nurse visit Gabe Boydr DO 05/28/2009 Office visit Gabe Boydr DO 04/30/2009 Nurse visit Gabe Boydr DO 01/10/2009 Office visit Gabe Boydr DO
--- OUTSIDE RECORDS SUMMARY | 2018-09-02 09:29 | XMS REPORT ---
Author Author Reggie Azar [facility] Address [address] [place], [place] [address] Care Team Providers Care Superintendent Laundry Name Role Phone Reggie Azar PCP Unavailable [...] route every 12 hours for 14 days Name Start Date Expiration Date SIG [...] 24hr 10/16/2009 08/05/2016 TAKE ONE CAPSULE DAILY [place] 10-325 mg oral tablet 08/05/2016 take 1 [...] 12:00 AM Depo-Medrol 120 Mg Im/[facility]# [address]-97 Reviewed 08/05/2016 12:00 AM DESTRUCT PREMALG LESION [...] 11/25/2016 12:00 AM Norflex 60mg Injection Reviewed 01/23/2017 12:00 AM Toradol 30 Mg Injection Reviewed 01/23/2017 12:00 AM THER/PROPH/DIAG INJ SC/IM Reviewed 02/03/2017 12:00 AM COMPLETE CBC W/AUTO [...] Reviewed 08/02/2009 12:00 AM Depo-Medrol 120 Mg [facility] [id number]~[place] Reviewed 08/27/2009 12:00 AM OSTEOPATH MANJ 1-2 REGIONS Reviewed 08/27/2009 12:00 AM Depo-Medrol 120 Mg [facility] [id number]~[place] Reviewed 08/27/2009 12:00 AM OSTEOPATH MANJ 1-2 REGIONS Reviewed 08/27/2009 12:00 AM [facility] [address]-77 Reviewed 08/27/2009 12:00 AM OSTEOPATH MANJ 1-2 REGIONS Reviewed 08/27/2009 12:00 AM Depo-Medrol 120 Mg Im/Fide [facility]# [address]-30 Reviewed 04/30/2009 12:00 AM THER/PROPH/DIAG INJ SC/IM Reviewed 04/30/2009 12:00 AM Depo-Medrol 120 Mg Im/Fide [facility]# [address]-13 Reviewed Results Summary Date and Description Results [...] Jan 06 2017 9:05AM Paresthesia of skin Sep 2016 9:05AM [...] Policy Number Policy Group Number Start Date [facility] Plan of [id number] N/A [place] Medical Assistance Program [place] Prog [id number] N/A History of Encounters Visit Date Visit Type Provider 02/04/2017 Office visit Reggie Azar NP 02/03/2017 Procedures Song Wright DO 01/23/2017 Office visit Reggie Azar NP 01/14/2017 Office visit Reggie Azar ELECTRICAL TECH 01/06/2017 Office visit Reggie Azar ELECTRICAL TECH 12/23/2016 Office visit Reggie Azar ELECTRICAL TECH 11/25/2016 Nurse visit Reggie Azar NP 09/30/2016 Office visit Reggie Azar NP 09/17/2016 Office visit Reggie Azar NP 09/02/2016 Office visit Reggie Azar ELECTRICAL TECH 08/19/2016 Office visit Reggie Azar ELECTRICAL TECH 08/05/2016 Office visit Reggie Azar NP 11/13/2015 Hospital Jun Stacy MD 01/27/2014 Surgery Song Wright DO 01/03/2014 [facility] Song Wright DO 01/03/2014 [facility] Jun Stacy MD 01/02/2014 [facility] Song Wright DO 08/27/2009 Office visit Gabe Lombardo DO 08/02/2009 Nurse visit Gabe Lombardo DO 05/28/2009 Office visit Gabe Lombardo DO 04/30/2009 Nurse visit Gabe Lombardo DO 01/10/2009 Office visit Gabe Lombardo DO
--- OUTSIDE RECORDS SUMMARY | 2018-09-02 09:29 | XMS REPORT ---
Author Author Reggie Azar [facility] Address [address] [place], [place] [address] Care Team Providers Care Review Analyst Name Role Phone Reggie Azar PCP Unavailable [...] 24hr 10/16/2009 08/05/2016 TAKE ONE CAPSULE DAILY [place] 10-325 mg oral tablet 08/05/2016 take 1 [...] Status 05/28/2009 12:00 AM Dep[facility]Medrol 120 Mg [facility] [address]-94 Reviewed 08/05/2016 12:00 AM DESTRUCT PREMALG LESION Reviewed 08/05/2016 12:00 AM DESTRUCT PREMALG LES 2-14 Reviewed 08/05/2016 12:00 AM DESTROY PREMAL LESIONS 15/> Reviewed 08/02/2009 12:00 AM THER/PROPH/DIAG INJ SC/IM Reviewed 08/02/2009 12:00 AM Depo-Medrol 120 Mg [facility] [id number]~[place] Reviewed 08/27/2009 12:00 AM OSTEOPATH MANJ 1-2 REGIONS Reviewed 08/27/2009 12:00 AM Depo-Medrol 120 Mg [facility] [id number]~[place] Reviewed 08/27/2009 12:00 AM OSTEOPATH MANJ 1-2 REGIONS Reviewed 08/27/2009 12:00 AM Depo-Medrol 120 Mg Im/[facility]# [address]-38 Reviewed 08/27/2009 12:00 AM OSTEOPATH MANJ 1-2 REGIONS Reviewed 08/27/2009 12:00 AM Depo-Medrol 120 Mg Im/[facility]# [address]-57 Reviewed 04/30/2009 12:00 AM THER/PROPH/DIAG INJ SC/IM Reviewed 04/30/2009 12:00 AM Depo-Medrol 120 Mg Im/[facility]# [address]-34 Reviewed Results Summary Not available. History Of [...] Policy Number Policy Group Number Start Date [facility] Plan of [id number] N/A [place] Medical Assistance [facility] Medical Assistance Prog [id number] N/A History of Encounters Visit Date Visit Type Provider 08/19/2016 Office visit Reggie Azar NP 08/05/2016 Office visit Reggie Azar NP 11/13/2015 Hospital Jun Stacy MD 01/27/2014 Surgery Song Wright DO 01/03/2014 Hospital Song Wright DO 01/03/2014 [facility] Jun Stacy MD 01/02/2014 Hospital Song Wright DO 08/27/2009 Office visit Gabe Lombardo DO 08/02/2009 Nurse visit Gabe Boydr DO 05/28/2009 Office visit Gabe Boydr DO 04/30/2009 Nurse visit Gabe Boydr DO 01/10/2009 Office visit Gabe Boydr DO
--- OUTSIDE RECORDS SUMMARY | 2018-09-02 09:30 | XMS REPORT ---
Author Author YVES CHRISTIE [facility] Address [address] [place], [place] [address] Care Team Providers Care Protective Clothing Issuer Name Role Phone YVES CHRISTIE PCP Allergies [...] route 3 times a day as needed [place] 10-325 mg oral tablet 03/23/2017 04/22/2017 take 1 tablet by oral route every 6 hours as needed for pain for 30 days Xanax 1 mg oral tablet 03/23/2017 04/22/2017 take 1 tablet by oral route for [...] 24hr 10/16/2009 08/05/2016 TAKE ONE CAPSULE DAILY [place] 10-325 mg oral tablet 08/05/2016 take 1 [...] 05/28/2009 12:00 AM Depo-Medrol 120 Mg Im/[facility]# [address]-96 Reviewed 08/05/2016 12:00 AM DESTRUCT PREMALG LESION [...] Reviewed 08/02/2009 12:00 AM Depo-Medrol 120 Mg [facility] [id number]~[place] Reviewed 08/27/2009 12:00 AM OSTEOPATH MANJ 1-2 REGIONS Reviewed 08/27/2009 12:00 AM Depo-Medrol 120 Mg [facility] [id number]~[place] Reviewed 08/27/2009 12:00 AM OSTEOPATH MANJ 1-2 REGIONS Reviewed 08/27/2009 12:00 AM [facility]Medrol [facility] [address]-03 Reviewed 08/27/2009 12:00 AM OSTEOPATH MANJ 1-2 REGIONS Reviewed 08/27/2009 12:00 AM [facility]Medrol [facility] [address]-08 Reviewed 04/30/2009 12:00 AM THER/PROPH/DIAG INJ SC/IM Reviewed 04/30/2009 12:00 AM Depo-Medrol 120 Mg Im/[facility]# [address]-67 Reviewed Results Summary Date and Description Results [...] 28 2009 8:28AM Low Back Pain Feb 8 2009 8:28AM Anxiety Disorder Feb 8 2009 8:28AM Depressive Disorder Feb 8 2009 8:28AM Drug Abuse Feb 8 2009 8:28AM Pain in joint; Hip Feb [...] 4:07PM Mixed hyperlipidemia Mar 23 2017 4:07PM Payers Insurance Name Company Name Plan Name Plan Number Policy Number Policy Group Number Start Date [facility] Comm Plan of [id number] N/A [facility] Comm [id number] N/A [place] Medical Assistance [facility] Medical Assistance Prog [id number] N/A History of Encounters Visit Date Visit Type Provider 04/02/2017 Office visit YVES JACQUES 03/23/2017 Office visit YVES JACQUES 03/17/2017 Surgery Song Wright DO 03/09/2017 Office visit Reggie Azar NP 02/26/2017 Hospital Song Wright DO 02/04/2017 Office visit Reggie Azar NP 02/04/2017 Hospital Jun Stacy MD 02/03/2017 Procedures Song Wright DO 01/23/2017 Office visit Reggie Azar NP 01/14/2017 Office visit Reggie Azar NP 01/06/2017 Office visit Reggie Azar HOT ROLL INSPECTOR 12/23/2016 Office visit Reggie Azar HOT ROLL INSPECTOR 11/25/2016 Nurse visit Reggie Azar HOT ROLL INSPECTOR 09/30/2016 Office visit Reggie Azar HOT ROLL INSPECTOR 09/17/2016 Office visit Reggie Azar HOT ROLL INSPECTOR 09/02/2016 Office visit Reggie Azar HOT ROLL INSPECTOR 08/19/2016 Office visit Reggie Azar HOT ROLL INSPECTOR 08/05/2016 Office visit Reggie Azar HOT ROLL INSPECTOR 11/13/2015 Hospital Jun Stacy MD 01/27/2014 [facility]2014 [facility] 01/[facility]/2014 [facility] Jun Stacy MD 01/02/2014 [facility] DO 08/27/2009 Office visit Gabe Lombardo DO 08/02/2009 Nurse visit Gabe Lombardo DO 05/28/2009 Office visit Gabe Lombardo DO 04/30/2009 Nurse visit Gabe Lombardo DO 01/10/2009 Office visit Gabe Lombardo DO
--- OUTSIDE RECORDS SUMMARY | 2018-09-02 09:31 | XMS REPORT ---
Author Author Reggie Azar [facility] Address [address] [place], [place] [address] Care Team Providers Care Adobe Maker Name Role Phone Reggie Azar PCP Unavailable [...] 24hr 10/16/2009 08/05/2016 TAKE ONE CAPSULE DAILY [place] 10-325 mg oral tablet 08/05/2016 take 1 [...] AM Depo-Medrol 120 Mg Im/[facility]# [address]-18 Reviewed 08/05/2016 12:00 AM DESTRUCT PREMALG LESION [...] Reviewed 02/03/2017 12:00 AM ELECTROCARDIOGRAM TRACING Reviewed 08/02/2009 12:00 AM THER/PROPH/DIAG INJ SC/IM Reviewed 08/02/2009 12:00 AM Depo-Medrol 120 Mg [facility] [id number]~[place] Reviewed 08/27/2009 12:00 AM OSTEOPATH MANJ 1-2 REGIONS Reviewed 08/27/2009 12:00 AM Depo-Medrol 120 Mg [facility] [id number]~[place] Reviewed 08/27/2009 12:00 AM OSTEOPATH MANJ 1-2 REGIONS Reviewed 08/27/2009 12:00 AM Depo-Medrol 120 Mg Im/[facility]# [address]-98 Reviewed 08/27/2009 12:00 AM OSTEOPATH MANJ 1-2 REGIONS Reviewed 08/27/2009 12:00 AM Depo-Medrol 120 Mg Im/Fide [facility]# [address]-01 Reviewed 04/30/2009 12:00 AM THER/PROPH/DIAG INJ SC/IM Reviewed 04/30/2009 12:00 AM Depo-Medrol 120 Mg Im/Fide [facility]# [address]-12 Reviewed Results Summary Date and Description Results [...] Policy Number Policy Group Number Start Date [facility] Plan of [id number] N/A [place] Medical Assistance Program [place] Medical Assistance Prog [id number] N/A History of Encounters Visit Date Visit Type Provider 02/04/2017 Office visit Reggie Azar NP 02/03/2017 Procedures Song Wright DO 01/23/2017 Office visit Reggie Azar NP 01/14/2017 Office visit Reggie Azar ADAPTED PHYSICAL EDUCATION AIDE 01/06/2017 Office visit Reggie Azar ADAPTED PHYSICAL EDUCATION AIDE 12/23/2016 Office visit Reggie Azar ADAPTED PHYSICAL EDUCATION AIDE 11/25/2016 Nurse visit Reggie Azar NP 09/30/2016 Office visit Reggie Azar NP 09/17/2016 Office visit Reggie Azar NP 09/02/2016 Office visit Reggie Azar ADAPTED PHYSICAL EDUCATION AIDE 08/19/2016 Office visit Reggie Azar ADAPTED PHYSICAL EDUCATION AIDE 08/05/2016 Office visit Reggie Azar NP 11/13/2015 Hospital Jun Stacy MD 01/27/2014 Surgery Song Wright DO 01/03/2014 [facility] Song Wright DO 01/03/2014 [facility] Jun Stacy MD 01/02/2014 [facility] Song Wright DO 08/27/2009 Office visit Gabe Lombardo DO 08/02/2009 Nurse visit Gabe Lombardo DO 05/28/2009 Office visit Gabe Lombardo DO 04/30/2009 Nurse visit Gabe Lombardo DO 01/10/2009 Office visit Gabe Lombardo DO
--- OUTSIDE RECORDS SUMMARY | 2018-09-02 09:31 | XMS REPORT ---
Author Author Reggie Azar [facility] Address [address] [place], [place] [address] Care Team Providers Care Adjunct Sociology Professor Name Role Phone Reggie Azar PCP Unavailable [...] 24hr 10/16/2009 08/05/2016 TAKE ONE CAPSULE DAILY [place] 10-325 mg oral tablet 08/05/2016 take 1 [...] 05/28/2009 12:00 AM Depo-Medrol 120 Mg Im/Fide [facility]# [address]-10 Reviewed 08/02/2009 12:00 AM THER/PROPH/DIAG INJ SC/IM Reviewed 08/02/2009 12:00 AM Depo-Medrol 120 Mg [facility] [id number]~[place] Reviewed 08/27/2009 12:00 AM OSTEOPATH MANJ 1-2 REGIONS Reviewed 08/27/2009 12:00 AM Depo-Medrol 120 Mg [facility] [id number]~[place] Reviewed 08/27/2009 12:00 AM OSTEOPATH MANJ 1-2 REGIONS Reviewed 08/27/2009 12:00 AM Depo-Medrol 120 Mg Im/[facility]# [address]-45 Reviewed 08/27/2009 12:00 AM OSTEOPATH MANJ 1-2 REGIONS Reviewed 08/27/2009 12:00 AM Depo-Medrol 120 Mg Im/[facility]# [address]-53 Reviewed 04/30/2009 12:00 AM THER/PROPH/DIAG INJ SC/IM Reviewed 04/30/2009 12:00 AM Depo-Medrol 120 Mg Im/[facility]# [address]-99 Reviewed Results Summary Not available. History Of [...] Policy Number Policy Group Number Start Date [facility] Plan of [id number] N/A [place] Medical [place] Program [facility] Pro [id number] N/A History of Encounters Visit Date Visit [...]
--- OUTSIDE RECORDS SUMMARY | 2018-09-02 09:31 | XMS REPORT ---
Author Author Reggie Azar [facility] Address [address] [place], [place] [address] Care Team Providers Care Circulation Crew Leader Name Role Phone Reggie Azar PCP Unavailable [...] 24hr 10/16/2009 08/05/2016 TAKE ONE CAPSULE DAILY [place] 10-325 mg oral tablet 08/05/2016 take 1 [...] Status 05/28/2009 12:00 AM [facility] [address]-73 Reviewed 08/05/2016 12:00 AM DESTRUCT PREMALG LESION Reviewed 08/05/2016 12:00 AM DESTRUCT PREMALG LES 2-14 Reviewed 08/05/2016 12:00 AM DESTROY PREMAL LESIONS 15/> Reviewed 08/02/2009 12:00 AM THER/PROPH/DIAG INJ SC/IM Reviewed 08/02/2009 12:00 AM Depo-Medrol 120 Mg [facility] [id number]~[place] Reviewed 08/27/2009 12:00 AM OSTEOPATH MANJ 1-2 REGIONS Reviewed 08/27/2009 12:00 AM Depo-Medrol 120 Mg [facility] [id number]~[place] Reviewed 08/27/2009 12:00 AM OSTEOPATH MANJ 1-2 REGIONS Reviewed 08/27/2009 12:00 AM Depo-Medrol 120 Mg Im/[facility]# [address]-65 Reviewed 08/27/2009 12:00 AM OSTEOPATH MANJ 1-2 REGIONS Reviewed 08/27/2009 12:00 AM Depo-Medrol 120 Mg Im/[facility]# [address]-21 Reviewed 04/30/2009 12:00 AM THER/PROPH/DIAG INJ SC/IM Reviewed 04/30/2009 12:00 AM Depo-Medrol 120 Mg Im/[facility]# [address]-06 Reviewed Results Summary Not available. History Of [...] Start Date [facility] Plan of [id number] N/A [place] Medical Assistance [facility] Medical Assistance Prog [id number] N/A History of Encounters Visit Date Visit Type Provider 08/19/2016 Office visit Reggie Azar NP 08/05/2016 Office visit Reggie Azar NP 11/13/2015 Hospital Jun Stacy MD 01/27/2014 Surgery Song Wright DO 01/03/2014 Hospital Song Wright DO 01/03/2014 [facility] Jun Stacy MD 01/02/2014 Hospital Song Wright DO 08/27/2009 Office visit Gabe Lombardo DO 08/02/2009 Nurse visit Gabe Boydr DO 05/28/2009 Office visit Gabe Boydr DO 04/30/2009 Nurse visit Gabe Boydr DO 01/10/2009 Office visit Gabe Boydr DO
--- OUTSIDE RECORDS SUMMARY | 2018-09-02 09:32 | XMS REPORT ---
Author Song Jamil [facility] Address [address] [place], [place] [address] Care Team Providers Care Director Of Web Marketing Name Role Phone Song Wright PCP Unavailable [...] 24hr 10/16/2009 08/05/2016 TAKE ONE CAPSULE DAILY [place] 10-325 mg oral tablet 08/05/2016 take 1 [...] 12:00 AM Depo-Medrol 120 Mg Im/[facility]# [address]-91 Reviewed 08/05/2016 12:00 AM DESTRUCT PREMALG LESION [...] Reviewed 08/02/2009 12:00 AM Depo-Medrol 120 Mg [facility] [id number]~[place] Reviewed 08/27/2009 12:00 AM OSTEOPATH MANJ 1-2 REGIONS Reviewed 08/27/2009 12:00 AM Depo-Medrol 120 Mg [facility] [id number]~[place] Reviewed 08/27/2009 12:00 AM OSTEOPATH MANJ 1-2 REGIONS Reviewed 08/27/2009 12:00 AM Depo-Medrol 120 Mg Im/[facility]ide Clinic [facility]# [address]-28 Reviewed 08/27/2009 12:00 AM OSTEOPATH MANJ 1-2 REGIONS Reviewed 08/27/2009 12:00 AM Depo-Medrol 120 Mg Im/[facility]ide Clinic [facility]# [address]-59 Reviewed 04/30/2009 12:00 AM THER/PROPH/DIAG INJ SC/IM Reviewed 04/30/2009 12:00 AM Depo-Medrol 120 Mg Im/[facility]ide Clinic [facility]# [address]-58 Reviewed Results Summary Date and Description Results [...] Policy Group Number Start Date [facility] Plan of [id number] N/A [place] [employer] Assistance Program [place] Medical Assistance Prog [id number] N/A History of Encounters Visit Date Visit Type Provider 02/03/2017 Procedures Song Wright DO 01/23/2017 Office visit Reggie Azar NP 01/14/2017 Office visit Reggie Azar NP 01/06/2017 Office visit Reggie Azar NP 12/23/2016 Office visit Reggie Azar TRAINING PROJECT MANAGER 11/25/2016 Nurse visit Reggie Azar TRAINING PROJECT MANAGER 09/30/2016 Office visit Reggie Azar TRAINING PROJECT MANAGER 09/17/2016 Office visit Reggie Azar TRAINING PROJECT MANAGER 09/02/2016 Office visit Reggie Azar TRAINING PROJECT MANAGER 08/19/2016 Office visit Reggie Azar TRAINING PROJECT MANAGER 08/05/2016 Office visit Reggie Azar TRAINING PROJECT MANAGER 11/13/2015 [facility] Jun Stacy MD 01/27/2014 Surgery [facility] DO 01/03/2014 Hospital [facility] DO 01/03/2014 [facility] Jun Stacy MD 01/02/2014 [facility] DO 08/27/2009 Office visit Gabe Lombardo DO 08/02/2009 Nurse visit Gabe Lombardo DO 05/28/2009 Office visit Gabe Lombardo DO 04/30/2009 Nurse visit Gabe Lombardo DO 01/10/2009 Office visit Gabe Lombardo DO
--- OUTSIDE RECORDS SUMMARY | 2018-09-02 09:32 | XMS REPORT ---
Author Author Reggie Azar [facility] Address [address] [place], [place] [id number] Care Team Providers Care Medical Records Auditor Name Role Phone Reggie Azar PCP Unavailable [...] once daily with food for 30 days enalapril maleate 10 mg oral tablet 09/17/2016 03/16/2017 take 1 tablet (10 mg) by oral [...] 24hr 10/16/2009 08/05/2016 TAKE ONE CAPSULE DAILY [place] 10-325 mg oral tablet 08/05/2016 take 1 [...] 12:00 AM Depo-Medrol 120 Mg Im/[facility]# [id number] Reviewed 08/05/2016 12:00 AM DESTRUCT PREMALG LESION [...] 09/30/2016 12:00 AM Depo-Medrol 40mg Injection Reviewed 08/02/2009 12:00 AM THER/PROPH/DIAG INJ SC/IM Reviewed 08/02/2009 12:00 AM Depo-Medrol 120 Mg [facility] [id number]~[place] Reviewed 08/27/2009 12:00 AM OSTEOPATH MANJ 1-2 REGIONS Reviewed 08/27/2009 12:00 AM Depo-Medrol 120 Mg [facility] [id number]~[place] Reviewed 08/27/2009 12:00 AM OSTEOPATH MANJ 1-2 REGIONS Reviewed 08/27/2009 12:00 AM [facility] [id number] Reviewed 08/27/2009 12:00 AM OSTEOPATH MANJ 1-2 REGIONS Reviewed 08/27/2009 12:00 AM Depo-Medrol 120 Mg Im/[facility]# [id number] Reviewed 04/30/2009 12:00 AM THER/PROPH/DIAG INJ SC/IM Reviewed 04/30/2009 12:00 AM [facility]Medrol [facility] [address]-77 Reviewed Results Summary Date and Description Results [...] 3:35PM Hip pain Sep 30 2016 3:35PM Payers Insurance Name Company Name Plan Name Plan Number Policy Number Policy Group Number Start Date [facility] Plan of [id number] N/A [place] Medical Assistance [facility] Medical Assistance Prog [id number] N/A History of Encounters Visit Date Visit Type Provider 09/30/2016 Office visit Reggie Azar NP 09/17/2016 [...]
--- OUTSIDE RECORDS SUMMARY | 2018-09-02 09:33 | XMS REPORT ---
Author Song Jamil [facility] Address [address] [place], [place] [id number] Care Team Providers Care Egg Breaker Name Role Phone Song Wright PCP Unavailable [...] 24hr 10/16/2009 08/05/2016 TAKE ONE CAPSULE DAILY [place] 10-325 mg oral tablet 08/05/2016 take 1 [...] 120 Mg Im/[facility]ide Clinic [facility]# [id number] Reviewed 08/05/2016 12:00 AM DESTRUCT PREMALG LESION [...] AM Depo-Medrol 120 Mg [facility] [id number]~[place] Reviewed 08/27/2009 12:00 AM OSTEOPATH MANJ 1-2 REGIONS Reviewed 08/27/2009 12:00 AM Depo-Medrol 120 Mg [facility] [id number]~[place] Reviewed 08/27/2009 12:00 AM OSTEOPATH MANJ 1-2 REGIONS Reviewed 08/27/2009 12:00 AM Depo-Medrol 120 Mg Im/[facility]ide Clinic [facility]# [id number] Reviewed 08/27/2009 12:00 AM OSTEOPATH MANJ 1-2 REGIONS Reviewed 08/27/2009 12:00 AM Depo-Medrol 120 Mg Im/Fide [facility]# [address]-73 Reviewed 04/30/2009 12:00 AM THER/PROPH/DIAG INJ SC/IM Reviewed 04/30/2009 12:00 AM Depo-Medrol 120 Mg Im/Fide [facility]# [address]-81 Reviewed Results Summary Date and Description Results [...] Start Date [facility] Plan of [id number] N/A [place] Medical [place] Medical [place] Prog [id number] N/A History of Encounters Visit Date Visit Type Provider 02/26/2017 Hospital Song Wright DO 02/04/2017 Office visit Reggie Azar NP 02/03/2017 [...] 08/05/2016 Office visit Reggie Azar NP 11/13/2015 [facility] Jun Stacy MD 01/27/2014 Surgery Song Wright DO 01/03/2014 Hospital Song Wright DO 01/03/2014 [facility] Jun Stacy MD 01/02/2014 [facility] Song Wright DO 08/27/2009 Office visit Gabe Lombardo DO 08/02/2009 Nurse visit Gabe Lombardo DO 05/28/2009 Office visit Gabe Lombardo DO 04/30/2009 Nurse visit Gabe Lombardo DO 01/10/2009 Office visit Gabe Lombardo DO
--- OUTSIDE RECORDS SUMMARY | 2018-09-02 09:34 | XMS REPORT ---
Author Author Reggie Azar [facility] Address [address] [place], [place] [address] Care Team Providers Care Video Recorder Mechanic Name Role Phone Reggie Azar PCP Unavailable [...] 24hr 10/16/2009 08/05/2016 TAKE ONE CAPSULE DAILY [place] 10-325 mg oral tablet 08/05/2016 take 1 [...] Mg Im/[facility]ide Clinic [facility]# [id number] Reviewed 08/05/2016 12:00 AM DESTRUCT PREMALG LESION [...] Depo-Medrol 120 Mg [facility] [id number]~[place] Reviewed 08/27/2009 12:00 AM OSTEOPATH MANJ 1-2 REGIONS Reviewed 08/27/2009 12:00 AM Depo-Medrol 120 Mg [facility] [id number]~[place] Reviewed 08/27/2009 12:00 AM OSTEOPATH MANJ 1-2 REGIONS Reviewed 08/27/2009 12:00 AM Depo-Medrol 120 Mg Im/[facility]ide Clinic [facility]# [id number] Reviewed 08/27/2009 12:00 AM OSTEOPATH MANJ 1-2 REGIONS Reviewed 08/27/2009 12:00 AM Depo-Medrol 120 Mg Im/[facility] Clinic [facility]# [address]-75 Reviewed 04/30/2009 12:00 AM THER/PROPH/DIAG INJ SC/IM Reviewed 04/30/2009 12:00 AM Depo-Medrol 120 Mg Im/Fide [facility]# [address]-08 Reviewed Results Summary Date and Description Results [...] Policy Number Policy Group Number Start Date [facility] Plan of [id number] N/A [place] Medical [place] Program [place] Medical [place] Pro [id number] N/A History of Encounters Visit Date Visit Type Provider 02/04/2017 Office visit Reggie Azar NP 02/03/2017 Procedures Song Wright DO 01/23/2017 Office visit Reggie Azar NP 01/14/2017 Office visit Reggie Azar PRODUCTION SANITIZER 01/06/2017 Office visit Reggie Azar PRODUCTION SANITIZER 12/23/2016 Office visit Reggie Azar NP 11/25/2016 Nurse visit Reggie Azar NP 09/30/2016 Office visit Reggie Azar NP 09/17/2016 Office visit Reggie Azar PRODUCTION SANITIZER 09/02/2016 Office visit Reggie Azar NP 08/19/2016 Office visit Reggie Azar NP 08/05/2016 Office visit Reggie Azar NP 11/13/2015 Hospital Jun Stacy MD 01/27/2014 Surgery Song Wright DO 01/03/2014 [facility] Song Wright DO 01/03/2014 [facility] Jun Stacy MD 01/02/2014 [facility] Song Wright DO 08/27/2009 Office visit Gabe Lombardo DO 08/02/2009 Nurse visit Gabe Lombardo DO 05/28/2009 Office visit Gabe Lombardo DO 04/30/2009 Nurse visit Gabe Lombardo DO 01/10/2009 Office visit Gabe Lombardo DO
--- OUTSIDE RECORDS SUMMARY | 2018-09-02 09:34 | XMS REPORT ---
Author Song Jamil [facility] Address [address] [place], [place] [address] Care Team Providers Care Armature Winder Repair Name Role Phone Song Wright PCP Unavailable [...] 24hr 10/16/2009 08/05/2016 TAKE ONE CAPSULE DAILY [place] 10-325 mg oral tablet 08/05/2016 take 1 [...] 12:00 AM Depo-Medrol 120 Mg Im/[facility]# [id number] Reviewed 08/05/2016 12:00 AM DESTRUCT PREMALG LESION [...] Reviewed 08/02/2009 12:00 AM Depo-Medrol 120 Mg [facility] [id number]~[place]ira Reviewed 08/27/2009 12:00 AM OSTEOPATH MANJ 1-2 REGIONS Reviewed 08/27/2009 12:00 AM Depo-Medrol 120 Mg [facility] [id number]~[place] Reviewed 08/27/2009 12:00 AM OSTEOPATH MANJ 1-2 REGIONS Reviewed 08/27/2009 12:00 AM Depo-Medrol 120 Mg Im/[facility]# [address]-24 Reviewed 08/27/2009 12:00 AM OSTEOPATH MANJ 1-2 REGIONS Reviewed 08/27/2009 12:00 AM Depo-Medrol 120 Mg Im/[facility]# [address]-63 Reviewed 04/30/2009 12:00 AM THER/PROPH/DIAG INJ SC/IM Reviewed 04/30/2009 12:00 AM Depo-Medrol 120 Mg Im/[facility]# [address]-31 Reviewed Results Summary Date and Description Results [...] Policy Number Policy Group Number Start Date [facility] Plan of [id number] N/A [place] Medical Assistance Program [place] Prog [id number] N/A History of Encounters Visit Date Visit Type Provider 02/03/2017 Procedures Song Wright DO 01/23/2017 Office visit Reggie Doe FRAMING MILL OPERATOR 01/14/2017 Office visit Reggie Azar FRAMING MILL OPERATOR 01/06/2017 Office visit Reggie Azar FRAMING MILL OPERATOR 12/23/2016 Office visit Reggie Azar FRAMING MILL OPERATOR 11/25/2016 Nurse visit Reggie Azar FRAMING MILL OPERATOR 09/30/2016 Office visit Reggie Azar FRAMING MILL OPERATOR 09/17/2016 Office visit Reggie Azar FRAMING MILL OPERATOR 09/02/2016 Office visit Reggie Azar FRAMING MILL OPERATOR 08/19/2016 Office visit Reggie Azar FRAMING MILL OPERATOR 08/05/2016 Office visit Reggie Azar FRAMING MILL OPERATOR 11/13/2015 Hospital Jun Stacy MD 01/27/2014 [facility] 01/[facility]2014 [facility] DO 01/03/2014 [facility] Jun Stacy MD 01/02/2014 [facility] DO 08/27/2009 Office visit Gabe Lombardo DO 08/02/2009 Nurse visit Gabe Lombardo DO 05/28/2009 Office visit Gabe Lombardo DO 04/30/2009 Nurse visit Gabe Lombardo DO 01/10/2009 Office visit Gabe Lombardo DO
--- OUTSIDE RECORDS SUMMARY | 2018-09-02 09:35 | XMS REPORT ---
Author Author YVES CHRISTIE [facility] Address [address] [place], [place] [address] Care Team Providers Care Fleet Maintenance Foreman Name Role Phone YVES CHRISTIE PCP YVES CHRISTIE PreferredProvider Allergies and Adverse Reactions Name Reaction Notes Keflex anaphylaxis Plan of Treatment Planned Activity Comments Planned Date Planned Time Plan/Goal Abdomen 2View Decub/Upright- Main 09/17/2016 12:00 AM Injection,Subcutaneous/Intramuscul, [facility] Medicare 06/09/2017 12:00 AM chronic hip and neck pain [...] oral route once daily for 30 days gabapentin 100 mg oral capsule 04/03/2017 TAKE ONE CAPSULE BY MOUTH TWICE DAILY enalapril maleate 10 mg oral tablet take 1 tablet (10 mg) by oral route once daily celecoxib 100 mg oral capsule 05/28/2017 take 1 capsule (100 mg) by oral route 2 times per day for 30 days cyclobenzaprine 5 mg oral tablet 05/25/2017 take 1 tablet (5 mg) by oral route 3 times per day for 30 days hydrocodone-ibuprofen 7.5-200 mg oral tablet 06/09/2017 take 1 tablet by oral route every 6 hours as needed for pain not to exceed 5 tablets in 24hrs Xanax 0.5 mg oral tablet 06/09/2017 07/09/2017 1/2 to 1 twice daily p.r.n. Name Start Date Expiration Date SIG Comments [...] route every 4- 6 hours as needed [place] 10-325 mg oral tablet 05/21/2017 06/20/2017 take 1 tablet by oral route every 6 hours as needed for pain for 30 days Effexor XR 150 mg oral capsule,extended release 24hr 05/28/2017 05/28/2017 take 1 capsule (150 mg) by oral route once daily with food for 30 days amitriptyline 50 mg oral tablet 05/28/2017 05/28/2017 take 1 tablet (50 mg) by oral route once daily at bedtime for 30 days Discontinued Name Start Date [...] 24hr 10/16/2009 08/05/2016 TAKE ONE CAPSULE DAILY [place] 10-325 mg oral tablet 08/05/2016 take 1 [...] route 3 times a day as needed Problem List Description Status Onset Ventral hernia Active 02/04/2017 Mass Active 02/04/2017 Hip mass, left Active 02/04/2017 History of methamphetamine abuse Active 04/09/2017 Moderate episode of recurrent major depressive disorder Active 04/09/2017 Essential hypertension Active 04/09/2017 Vital Signs Date Time BP-Sys(mm[Hg] BP-[place](mm[Hg]) HR(bpm) RR(rpm) Temp WT HT HC BMI BSA BMI Percentile O2 Sat(%) 06/09/2017 2:49:00 PM 142 mmHg 80 mmHg [...] 12:00 AM Depo-Medrol 120 Mg Im/Fide Clinic [facility]# [address]-94 Reviewed 08/05/2016 12:00 AM DESTRUCT PREMALG LESION [...] 05/25/2017 12:00 AM Decadron 8mg Injection, [facility] Medicare Reviewed 08/02/2009 12:00 AM THER/PROPH/DIAG INJ SC/IM Reviewed 08/02/2009 12:00 AM Depo-Medrol 120 Mg [facility] [id number]~[place] Reviewed 08/27/2009 12:00 AM OSTEOPATH MANJ 1-2 REGIONS Reviewed 08/27/2009 12:00 AM Depo-Medrol 120 Mg [facility] [id number]~[place] Reviewed 08/27/2009 12:00 AM OSTEOPATH MANJ 1-2 REGIONS Reviewed 08/27/2009 12:00 AM Depo-Medrol 120 Mg Im/Fide [facility]# [address]-51 Reviewed 08/27/2009 12:00 AM OSTEOPATH MANJ 1-2 REGIONS Reviewed 08/27/2009 12:00 AM Depo-Medrol 120 Mg /[facility]# [address]-10 Reviewed 04/30/2009 12:00 AM THER/PROPH/DIAG INJ SC/IM Reviewed 04/30/2009 12:00 AM Depo-Medrol 120 Mg /[facility]# [address]-00 Reviewed Results Summary Date and Description Results [...] Generalized anxiety disorder Jun 09 2017 2:50PM Payers Insurance Name Company Name Plan Name Plan Number Policy Number Policy Group Number Start Date [facility] Plan of [id number] N/A [facility] Comm [id number] N/A [place] Medical Assistance [facility] Medical Assistance Prog [id number] N/A History of Encounters Visit Date Visit Type Provider 06/09/2017 Office visit YVES JACQUES 05/25/2017 Office [...] Azar NP 09/17/2016 Office visit Reggie Azar PATHOLOGY SECRETARY/TRANSCRIPTIONIST 09/02/2016 Office visit Reggie Azar PATHOLOGY SECRETARY/TRANSCRIPTIONIST 08/19/2016 Office visit Reggie Azar PATHOLOGY SECRETARY/TRANSCRIPTIONIST 08/05/2016 Office visit Reggie Azar NP 11/13/2015 [facility] Jun Stacy MD 01/27/2014 [facility] 01/[facility]/2014 [facility] DO 01/03/2014 [facility] Jun Stacy MD 01/02/2014 [facility] 08/27/2009 Office visit Gabe Lombardo DO 08/02/2009 Nurse visit Gabe Lombardo DO 05/28/2009 Office visit Gabe Lombardo DO 04/30/2009 Nurse visit Gabe Lombardo DO 01/10/2009 Office visit Gabe Lombardo DO
--- OUTSIDE RECORDS SUMMARY | 2018-09-02 09:36 | XMS REPORT ---
Author Author Reggie Azar [facility] Address [address] [place], [place] [address] Care Team Providers Care Crop Consultant Name Role Phone Reggie Azar PCP Unavailable [...] 24hr 10/16/2009 08/05/2016 TAKE ONE CAPSULE DAILY [place] 10-325 mg oral tablet 08/05/2016 take 1 [...] 12:00 AM Depo-Medrol 120 Mg Im/Fide Clinic [facility]# [address]-64 Reviewed 08/05/2016 12:00 AM DESTRUCT PREMALG LESION [...] Reviewed 08/02/2009 12:00 AM Depo-Medrol 120 Mg [facility] [id number]~[place] Reviewed 08/27/2009 12:00 AM OSTEOPATH MANJ 1-2 REGIONS Reviewed 08/27/2009 12:00 AM Depo-Medrol 120 Mg [facility] [id number]~[place] Reviewed 08/27/2009 12:00 AM OSTEOPATH MANJ 1-2 REGIONS Reviewed 08/27/2009 12:00 AM Depo-Medrol 120 Mg Im/Fide [facility]# [address]-97 Reviewed 08/27/2009 12:00 AM OSTEOPATH MANJ 1-2 REGIONS Reviewed 08/27/2009 12:00 AM Depo-Medrol 120 Mg Im/[facility]ide Clinic [facility]# [address]-67 Reviewed 04/30/2009 12:00 AM THER/PROPH/DIAG INJ SC/IM Reviewed 04/30/2009 12:00 AM Depo-Medrol 120 Mg Im/[facility]ide Clinic [facility]# [address]-26 Reviewed Results Summary Date and Description Results [...] Number Policy Group Number Start Date [facility] Plan of [id number] N/A [place] Medical Assistance [facility] Medical Assistance Prog [id number] N/A History of Encounters Visit Date Visit Type Provider 09/02/2016 Office visit Reggie Azar NP 08/19/2016 Office visit Reggie Azar NP 08/05/2016 Office visit Reggie Azar NP 11/13/2015 Hospital Jun Stacy MD 01/27/2014 Surgery Song Wright DO 01/03/2014 Hospital Song Wright DO 01/03/2014 [place] Stacy MD 01/02/2014 [facility] Song Wright DO 08/27/2009 Office visit Gabe Lombardo DO 08/02/2009 Nurse visit Gabe Lombardo DO 05/28/2009 Office visit Gabe Lombardo DO 04/30/2009 Nurse visit Gabe Lombardo DO 01/10/2009 Office visit Gabe Lombardo DO
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
--- OUTSIDE RECORDS SUMMARY | 2018-09-02 09:37 | XMS REPORT | Clinical Summary ---
Demographics Home Phone Preferred Language Unknown Marital Status Unknown Cheondoism Affiliation Unknown Race Unknown Ethnic Group Unknown Author Author Admin, [facility] Organization All Address Unknown Phone Unavailable Allergies, Adverse Reactions, Alerts Allergy Name Reaction Description Start Date Severity Status Provider Allergies Unknown Conditions or Problems Problem Name Problem Code Onset Date Status Entry Date Provider Comment Standard Description Annotate Problems Unknown Active Medication List Medication Instructions Start Date Stop Date Generic Name NDC Status Provider Patient Instruction PREMARIN 0.625 MG TABS 1 tab po daily ESTROGENS CONJUGATED 47216857239 Active Alexis Hernandez MD Active ENALAPRIL MALEATE 10 MG TABS 1 tab po daily ENALAPRIL MALEATE 65101316830 Active Alexis Hernandez MD Active EFFEXOR XR 75 MG [id number] 1 cap po BID VENLAFAXINE HCL 47423381004 Active Alexis Hernandez MD Active
--- OUTSIDE RECORDS SUMMARY | 2018-09-02 09:37 | XMS REPORT ---
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 Problem list No authorized problems tracked for continuity of care are available for this visit. Encounters No authorized problems tracked for encounter diagnoses are available for this visit. Medications No home medications recorded for this patient visit Allergies, [...]
--- OUTSIDE RECORDS SUMMARY | 2018-09-02 09:37 | XMS REPORT ---
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 Name Role Phone YVES CHRISTIE PCP [...] (10 mg) by oral route once daily Xanax 1 mg oral tablet 05/21/2017 06/20/2017 take 1 tablet by oral route for 30 days bedtime Elmer 10-325 mg oral tablet 05/21/2017 06/20/2017 take 1 tablet by oral route every 6 hours as needed for pain for 30 days celecoxib 100 mg oral capsule 05/28/2017 take 1 capsule (100 mg) by oral route 2 times per day for 30 days clonazepam 1 mg oral tablet 05/28/2017 take 1 tablet by oral route 3 times a day as needed cyclobenzaprine 5 mg oral tablet 05/25/2017 take [...] route every 4- 6 hours as needed Effexor XR 150 mg oral capsule,extended release [...] 24hr 10/16/2009 08/05/2016 TAKE ONE CAPSULE DAILY Elmer 10-325 mg oral tablet 08/05/2016 take 1 [...] HC BMI BSA BMI Percentile O2 Sat(%) 05/25/2017 10:11:00 AM 122 mmHg 64 mmHg [...] Status 05/28/2009 12:00 AM Depo-Medrol 120 Mg Im/[facility]# [id number] Reviewed 08/05/2016 12:00 AM DESTRUCT PREMALG LESION [...] Injection, [facility] Medicare Reviewed 08/02/2009 12:00 AM THER/PROPH/DIAG INJ SC/IM Reviewed 08/02/2009 12:00 AM Depo-Medrol 120 Mg [facility] [id number]~[place] Reviewed 08/27/2009 12:00 AM OSTEOPATH MANJ 1-2 REGIONS Reviewed 08/27/2009 12:00 AM Depo-Medrol 120 Mg [facility] [id number]~[place] Reviewed 08/27/2009 12:00 AM OSTEOPATH MANJ 1-2 REGIONS Reviewed 08/27/2009 12:00 AM Depo-Medrol 120 Mg Im/[facility]# [id number] Reviewed 08/27/2009 12:00 AM OSTEOPATH MANJ 1-2 REGIONS Reviewed 08/27/2009 12:00 AM Depo-Medrol 120 Mg Im/[facility]# [id number] Reviewed 04/30/2009 12:00 AM THER/PROPH/DIAG INJ SC/IM Reviewed 04/30/2009 12:00 AM Depo-Medrol 120 Mg Im/[facility]DC# [id number] Reviewed Results Summary Date and Description Results [...] side Sep 2016 9:05AM Other chronic pain Jan 06 2017 [...] to family tension May 25 2017 10:18AM Payers Insurance Name Company Name Plan Name Plan Number Policy Number Policy Group Number Start Date [facility] Comm Plan of [id number] N/A [facility] Comm [id number] N/A [place] [employer] [facility] Medical Assistance Prog [id number] N/A History of Encounters Visit Date Visit Type Provider 05/25/2017 Office visit YVES JACQUES 04/29/2017 Office visit YVES JACQUES 04/02/2017 Office visit YVES JACQUES 03/23/2017 Office visit YVES JACQUES 03/17/2017 Surgery Song Wright DO 03/09/2017 Office visit Reggie Azar NP 02/26/2017 Hospital Song Wright DO 02/04/2017 Office visit Reggie Azar NP 02/04/2017 Hospital Jun Stacy MD 02/03/2017 Procedures Song Wright DO 01/23/2017 Office visit Reggie Azar MANAGER PROGRAMS 01/14/2017 Office visit Reggie Azar MANAGER PROGRAMS 01/06/2017 Office visit Reggie Azar MANAGER PROGRAMS 12/23/2016 Office visit Reggie Azar MANAGER PROGRAMS 11/25/2016 Nurse visit Reggie Azar MANAGER PROGRAMS 09/30/2016 Office visit Reggie Azar MANAGER PROGRAMS 09/17/2016 Office visit Reggie Azar MANAGER PROGRAMS 09/02/2016 Office visit Reggie Azar MANAGER PROGRAMS 08/19/2016 Office visit Reggie Azar MANAGER PROGRAMS 08/05/2016 Office visit Reggie Azar MANAGER PROGRAMS 11/13/2015 Hospital Jun Stacy MD 01/27/2014 Surgery Song Wright DO 01/03/2014 Hospital Song Wright DO 01/03/2014 Hospital Jun Stacy MD 01/02/2014 [facility] Song Wright DO 08/27/2009 Office visit Gabe Lombardo DO 08/02/2009 Nurse visit Gabe Lombardo DO 05/28/2009 Office visit Gabe Boydr DO 04/30/2009 Nurse visit Gabe Lombardo DO 01/10/2009 Office visit Gabe Lombardo DO
--- OUTSIDE RECORDS SUMMARY | 2018-09-02 09:37 | XMS REPORT | Continuity of Care Document ---
Demographics x Preferred Language Unknown Marital Status Unknown Uatsdin Affiliation Unknown Race Unknown Ethnic Group Unknown Author Organization Unknown Address Unknown Allergies Active Description Code Type Severity Reaction Onset Reported/Identified Relationship to Patient Clinical Status Yes KEFLEX SEVERE RESPIRATORY DISTRESS Medications Medication Packaging Start Date Stop Date Route Dosage Sig NORMAL SALINE 1000CC IV BAG INJ 0.9 % (NS 1000CC IV BAG) ml 2018 08/11/2018 CONTINUOUSEVERY 0 Hour LACTATED RINGERS 1000CC IV BAG INJ ml 08/03/2018 08/10/2018 CONTINUOUSEVERY 0 Hour Problems There is no data. Procedures Code [place] [address] CHEST X-RAY 09/20/2015 28484 COMPLETE CBC, AUTOMATED 09/20/2015 40015 MYCOPLASMA ANTIBODY 09/20/2015 A0425 GROUND MILEAGE 11/13/2015 A0427 ALS1-EMERGENCY 11/13/2015 Results Test Result Range UA - 12/29/14 00:00 PH 6.0 4.5-8.0 SG 1.010 1.003-1.035 UABILI NEGATIVE UABLD NEGATIVE UACOLOR YEL UAGLU NEGATIVE UAKET NEGATIVE UALEUK NEGATIVE UANIT NEGATIVE UAURO 0.2 0-0.2 CLARITY CL PROTEIN NEGATIVE UA WBC NOWBC UA RBC R05 SQUAMOUS EPITHELIAL CELLS FEW CBC - 12/29/14 00:00 HCT 38.5 % 36.9-47.0 HGB 12.8 G/DL 12.0-16.0 MCH 31.8 PG 27-31 MCHC 33.2 G/DL 33-37 MCV 95.8 FL 81-99 MPV 9.4 FL 7.3-10.4 PLT 347 10^3u 130-400 RBC 4.0 10^6u 4.2-5.4 RDW 12.4 % 11.5-15.5 WBC 6.4 10^3u 4.8-10.8 FREE T4 - 12/29/14 00:00 FT4 0.92 NG/DL 0.78-1.34 TSH - 12/29/14 00:00 TSH 1.14 UIUML 0.36-3.74 LIPID - 12/29/14 00:00 CHOHDL 6.4 1-3.5 CHOL 269 MG/DL 120-200 HDL 42 MG/DL 39-96 LDL 169 MG/DL 30-100 TRIG 277 MG/DL 35-160 VLDL 55 MG/DL 5-40 CMP - 12/29/14 00:00 ALB 3.6 G/DL 3.5-5 ALP 32 IU/L 25-72 ALT 20 IU/L 12-65 AST 17 IU/L 10-42 BCR 26.2 10-20 BUN 28 MG/DL 7-18 CA 8.3 MG/DL 8.4-10.2 CL 101 MEQ/L 98-107 CO2 22.4 MEQ/L 22-28 CREA 1.07 MG/DL 0.6-1.0 EGFR 53 eGFR >=60 GLU 132 MG/DL 70-105 K 4.9 MEQ/L 3.5-5.1 NA 134 MEQ/L 134-145 OSMSC 275.6 MOSML 280-300 TBIL 0.2 MG/DL 0.1-1.0 TP 6.6 G/DL 6.0-8.3 Albumin/Globulin Ratio 1.2 0-8 Anion Gap 10.6 8-16 LIPID - 04/04/15 00:00 CHOHDL 3.1 1-3.5 CHOL 169 MG/DL 120-200 HDL 55 MG/DL 39-96 LDL 87 MG/DL 30-100 TRIG 120 MG/DL 35-160 VLDL 24 MG/DL 5-40 BMP - 04/04/15 00:00 BCR 28.6 10-20 BUN 26 MG/DL 7-18 CA 8.5 MG/DL 8.4-10.2 CL 102 MEQ/L 98-107 CO2 22.9 MEQ/L 22-28 CREA 0.91 MG/DL 0.6-1.0 EGFR 64 eGFR >=60 GLU 100 MG/DL 70-105 K 4.3 MEQ/L 3.5-5.1 NA 136 MEQ/L 134-145 OSMSC 276.8 MOSML 280-300 Anion Gap 11.1 8-16 CBC - 09/20/15 00:00 HCT 37.3 % 36.9-47.0 HGB 12.2 G/DL 12.0-16.0 MCH 29.8 PG 27-31 MCHC 32.7 G/DL 33-37 MCV 91.2 FL 81-99 MPV 9.8 FL 7.3-10.4 PLT 384 10^3u 130-400 RBC 4.1 10^6u 4.2-5.4 RDW 14.3 % 11.5-15.5 WBC 7.9 10^3u 4.8-10.8 RAPID MYCOPLASMA - 09/20/15 00:00 RAPMYCO N Negative Protime - 07/20/18 12:39 INR 0.9 1.0-4.0 Protime 10.8 Sec 9.9-12.8 Surgical Pathology - 07/27/18 07:32 Surg Path Sent to [facility] Pathology Encounters ACCT No. Visit Date/Time Discharge Status Pt. Type Provider Facility Loc./Unit Complaint [id number] 11/13/2015 21:18:00 11/13/2015 21:18:00 DIS Outpatient FRIDA OSORIO [facility] EMR [id number] 09/20/2015 14:35:00 09/20/2015 14:35:00 DIS Outpatient BO OLMOS [facility] [id number] 07/18/2015 00:00:00 07/18/2015 23:59:59 CLS Outpatient BO OLMOS [facility] [id number] 04/04/2015 08:23:00 04/04/2015 08:23:00 DIS Outpatient BO OLMOS [facility] [id number] 12/29/2014 08:48:00 12/29/2014 23:59:59 CLS Outpatient BO OLMOS [facility] [id number] 01/09/2014 00:00:00 01/09/2014 00:00:00 DIS Outpatient SHASHANK GARNER [facility] EMR [id number] 03/19/2015 00:00:00 Document Registration [id number] 03/19/2014 00:00:00 Document Registration [id number] 03/19/2014 00:00:00 Document Registration [id number] 01/18/2018 09:41:01 ACT Unknown [id number] 08/23/2018 09:50:00 08/23/2018 23:59:00 DIS Outpatient Marlee Adames [id number] 08/12/2018 08:00:00 08/12/2018 23:59:00 DIS Outpatient Stephen Massey [id number] 08/03/2018 07:09:00 08/03/2018 09:45:00 DIS Outpatient Marlee Adames [id number] 2018 06:51:00 2018 08:44:00 DIS Outpatient Marlee Adames [id number] 07/20/2018 12:06:00 07/20/2018 23:59:00 DIS Outpatient Marlee Adames [id number] 07/21/2018 14:21:08 Document Registration [id number] 06/29/2018 15:35:16 06/29/2018 23:59:59 CLS Outpatient Song Wright [id number] 05/26/2018 09:28:44 05/26/2018 23:59:59 CLS Outpatient SHAHNAZSTEPHEN [id number] 04/15/2018 16:25:44 04/15/2018 23:59:59 CLS Outpatient STEPHEN CHRISTIE [id number] 02/22/2018 11:12:04 02/22/2018 23:59:59 CLS Outpatient SHAHNAZ STEPHEN Barahona [id number] 02/03/2018 09:19:17 02/03/2018 23:59:59 CLS Outpatient STEPHEN CHRISTIE [id number] 12/28/2017 16:05:30 12/28/2017 23:59:59 CLS Outpatient STEPHEN CHRISTIE [id number] 12/25/2017 15:03:39 12/25/2017 23:59:59 CLS Outpatient Song Wright [id number] 12/16/2017 08:42:34 12/16/2017 23:59:59 CLS Outpatient STEPHEN CHRISTIE [id number] 09/21/2017 09:54:09 09/21/2017 23:59:59 CLS Outpatient STEPHEN CHRISTIE [id number] 07/13/2017 14:50:58 07/13/2017 23:59:59 CLS Outpatient STEPHEN CHRISTIE [id number] 06/15/2017 12:46:30 06/15/2017 23:59:59 CLS Outpatient STEPHEN CHRISTIE [id number] 05/25/2017 10:17:40 05/25/2017 23:59:59 CLS Outpatient STEPHEN CHRISTIE [id number] 04/29/2017 09:24:38 04/29/2017 23:59:59 CLS Outpatient STEPHEN CHRISTIE [id number] 04/02/2017 16:53:34 04/02/2017 23:59:59 CLS Outpatient STEPHEN CHRISTIE [id number] 03/27/2017 09:55:53 03/27/2017 23:59:59 CLS Outpatient Jun Stacy [id number] 03/23/2017 10:12:26 03/23/2017 23:59:59 CLS Outpatient STEPHEN CHRISTIE [id number] 03/17/2017 09:49:07 03/17/2017 23:59:59 CLS Outpatient KyleSong [id number] 03/09/2017 11:03:17 03/09/2017 23:59:59 CLS Outpatient Doe, Reggie [id number] 03/04/2017 17:00:42 03/04/2017 23:59:59 CLS Outpatient Song Wright [id number] 02/04/2017 12:25:32 02/04/2017 23:59:59 CLS Outpatient Doe, Reggie [id number] 02/03/2017 13:53:39 02/03/2017 23:59:59 CLS Outpatient Song Wright [id number] 01/23/2017 10:08:46 01/23/2017 23:59:59 CLS Outpatient Doe, Reggie [id number] 01/14/2017 11:57:05 01/14/2017 23:59:59 CLS Outpatient Doe, Reggie [id number] 01/06/2017 09:48:42 01/06/2017 23:59:59 CLS Outpatient Doe, Reggie [id number] 12/23/2016 11:35:03 12/23/2016 23:59:59 CLS Outpatient Doe, Reggie [id number] 11/25/2016 09:36:12 11/25/2016 23:59:59 CLS Outpatient Doe, Reggie [id number] 09/30/2016 16:06:32 09/30/2016 23:59:59 CLS Outpatient Doe, Reggie [id number] 09/17/2016 09:57:14 09/17/2016 23:59:59 CLS Outpatient Doe, Reggie [id number] 09/02/2016 08:49:02 09/02/2016 23:59:59 CLS Outpatient Reggie Azar [id number] 08/20/2016 16:52:56 08/20/2016 23:59:59 CLS Outpatient Reggie Azar [id number] 08/06/2016 10:17:18 08/06/2016 23:59:59 CLS Outpatient Reggie Azar [id number] 12/13/2015 11:41:46 12/13/2015 23:59:59 CLS Outpatient Jun Stacy [id number] 03/09/2014 12:14:28 03/09/2014 23:59:59 CLS Outpatient Jun Stacy [id number] 01/27/2014 10:41:40 01/27/2014 23:59:59 CLS Outpatient Song Wright [id number] 01/18/2014 11:45:47 01/18/2014 23:59:59 CLS Outpatient Song Wright [id number] 01/05/2014 15:38:38 01/05/2014 23:59:59 CLS Outpatient Song Wright
[2018-09-02] MEDS ORDERED: PHENYLEPHRINE 100 MCG/ML 10 ML (ANESTHESIA) SYR ONE (09:38)
--- NOTE | 2018-09-02 09:46 | Progress Note-Post Operative ---
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 Specimen(s) collected/removed left pharyngeal wall/base of tongue to pathology YVES MO MD September 02, 2018 09:46
[2018-09-02] MEDS ORDERED: ONDANSETRON 4 MG/2 ML (SDV) Z0FRAN IVP PRN (10:00)
[2018-09-02] MEDS ORDERED: ACETAMINOPHEN 325 MG TABLET PO PRN (10:00)
[2018-09-02] MEDS ORDERED: PROMETHAZINE INJ 25 MG/ML (PHENERGAN) AMP IVP ONE (10:00)
[2018-09-02] MEDS ORDERED: morphine INJ 10 MG/ML 1ML (SYR OR VIAL) IVP ONE (10:00)
[2018-09-02] MEDS ORDERED: PROMETHAZINE INJ 25 MG/ML (PHENERGAN) AMP IV PRN (10:00)
--- NOTE | 2018-09-02 13:36 | Anesthesia-General Post-Op ---
General Patient Condition Mental Status/LOC: Same as Preop Cardiovascular: Satisfactory Nausea/Vomiting: Absent Respiratory: Satisfactory Pain: Controlled Complications: Absent Post Op Complications Complications None Follow Up Care/Instructions Patient Instructions None needed. Anesthesia/Patient Condition Patient Condition Patient is doing well, no complaints, stable vital signs, no apparent adverse anesthesia problems. No complications reported per nursing. D/C home per [facility] Criteria: Yes KALEB LAYNE CRNA September 02, 2018 13:36
== END 2018-09-02 11:45 | disposition home or self-care (01) ==
LOC: SDC 07:06
PROVIDERS: ATTEND Otolaryngology Otolaryngology/Facial Plastic Surgery
DX: J39.2 Other diseases of pharynx (principal); K14.9 Disease of tongue, unspecified; I10 Essential (primary) hypertension; F17.210 Nicotine dependence, cigarettes, uncomplicated; K21.9 Gastro-esophageal reflux disease without esophagitis; K44.9 Diaphragmatic hernia without obstruction or gangrene; Z79.82 Long term (current) use of aspirin; Z79.899 Other long term (current) drug therapy